=== PATIENT | male | born 1970 | race Caucasian/White ===

== ENCOUNTER 2018-03-30 12:31 | Emergency (ER) | payer SELFPAY ==
[2018-03-30] MEDS ORDERED: ASPIRIN 81 MG CHEWABLE TABLET ONE (13:09)
[2018-03-30] MEDS ORDERED: Magnesium Sulfate 2gm IVPB 2 G/50 ML BAG IV ONE (13:10)
[2018-03-30] MEDS ORDERED: dilTIAZem HCl 50 MG/10 ML VIAL IV ONE (13:10)
[2018-03-30] MEDS ORDERED: DILTIAZEM 125 MG in NS 125 ML IVPB ONE (13:15)
[2018-03-30] MEDS ORDERED: ENOXAPARIN 80 MG/0.8 ML SQ ONE (13:43)
[2018-03-30] MEDS ORDERED: METOPROLOL TAR 50 MG TAB ONE (13:43)
[2018-03-30] MEDS ORDERED: ENOXAPARIN 100 MG/ML SYR SQ ONE (13:48)
--- NOTE | 2018-03-30 13:54 | RAD REPORT ---
EXAM DESCRIPTION: RAD - Chest Single View - 03/30/2018 1:41 pm CLINICAL HISTORY: Chest pain, syncope COMPARISON: September 2017 TECHNIQUE: AP portable chest image was obtained 1324 hours . FINDINGS: No peripheral mass or consolidation. Cardiac silhouette is enlarged. Upper lobe vasculatur e is mildly prominent. However, the vasculature and lung markings overall are diminished in prominenc e compared to September. Trachea is midline. Heart and vasculature are normal. No measurable pleural e ffusion and no pneumothorax. No gross bony abnormality seen. No acute aortic findings suspected. IMPRESSION: Mild cardiomegaly similar to prior imaging. No peripheral consolidation or mass. Central lung markings and vasculature have diminished since September. No significant failure or volum e overload at this time.
[2018-03-30 13:58] LABS: Absolute Lymphocytes (CBC) 3.1 K/uL (0.7-4.9); Absolute Monocytes 0.9 K/uL (0.1-1.3); Absolute Neutrophil 6.2 K/uL (1.8-8.0); Basophils % 0.9 % (0-1.3); Eosinophils % 1.7 % (0-4.4); Hematocrit 43.8 % (39.6-49.0); Lymphocytes % 29.8 % (15.3-44.8); MCH 35.6 pg (27.0-35.0); MCV 101.1 fL (80-100); MPV 8.7 fL (7.6-11.3); Monocytes % 8.3 % (3.3-12.3); RBC Red Blood Cell Count 4.34 M/uL (4.33-5.43)
[2018-03-30 13:59] LABS: Protime INR 0.96
[2018-03-30 14:22] LABS: Albumin 3.6 g/dL (3.4-5.0); Bilirubin Direct 0.1 mg/dL (0-0.2); Bilirubin Total 0.6 mg/dL (0.2-1.0); Potassium 4.3 mmol/L (3.5-5.1); Protein, Total 7.6 g/dL (6.4-8.2)
--- NOTE | 2018-03-30 15:13 | ER ---
Nurse's Notes [facility] Name: Iván Abel Age: 47 yrs Sex: Male : 1970 Arrival Date: 03/30/2018 Time: 12:32 Bed 4 Private MD: Diagnosis: Atrial Fibrillation with rapid ventricular response;Acute Chest Pain Presentation: 03/30 12:38 Presenting complaint: Patient states: CP and near syncope while driving to work today, sg reports having afib but this episode does not feel like it does when he is having an issue with AFIB, pt is pale and diaphoretic in triage, reports chest tightness and Nausea. Transition of care: patient was not received from another setting of care. Onset of symptoms was March 30, 2018. Risk Assessment: Do you want to hurt yourself or someone else? Patient reports no desire to harm self or others. Initial Sepsis Screen: Does the patient meet any 2 criteria? No. Patient's initial sepsis screen is negative. Does the patient have a suspected source of infection? No. Patient's initial sepsis screen is negative. Care prior to arrival: None. 12:38 Method Of Arrival: Ambulatory sg 12:38 Acuity: SILAS 2 sg Historical: - Allergies: 12:38 No Known Allergies; sg - Home Meds: 12:38 lisinopril Oral once daily [Active]; carvedilol oral oral [Active]; Sotalol Oral sg [Active]; - PMHx: 12:38 Atrial Fib; Hypertension; sg - PSHx: 12:38 None; sg - Immunization history:: Adult Immunizations not up to date. - Social history:: Smoking status: Patient uses tobacco products, smokes one pack cigarettes per day. - Ebola Screening: : Patient negative for fever greater than or equal to 101.5 degrees Fahrenheit, and additional compatible Ebola Virus Disease symptoms Patient denies exposure to infectious person Patient denies travel to an Ebola-affected area in the 21 days before illness onset No symptoms or risks identified at this time. - Family history:: not pertinent. - Hospitalizations: : No recent hospitalization is reported. Screenin:18 Abuse screen: Denies threats or abuse. Denies injuries from another. Nutritional aj screening: No deficits noted. Tuberculosis screening: No symptoms or risk factors identified. Fall Risk None identified. Assessment: 12:54 General: Appears in no apparent distress. comfortable, Behavior is calm, cooperative, aj appropriate for age. Pain: Denies pain. Neuro: Level of Consciousness is awake, alert, obeys commands, Oriented to person, place, time, situation, Appropriate for age. Neuro:. Cardiovascular: Reports palpitations, Capillary refill < 3 seconds in bilateral fingers Patient's skin is warm and dry. Respiratory: Airway is patent Respiratory effort is Respiratory pattern is regular, symmetrical. Derm: Skin is intact, is healthy with good turgor, Skin is pink, warm \T\ dry. normal. 13:27 Reassessment: Patient appears in no apparent distress at this time. No changes from aj previously documented assessment. Patient and/or family updated on plan of care and expected duration. Pain level reassessed. Patient is alert, oriented x 3, equal unlabored respirations, skin warm/dry/pink. Patient denies pain at this time. Patient states feeling better. Patient states symptoms have improved. 15:30 Pain: Pain began. Vital Signs: 12:38 BP 119 / 94; Pulse 70; Resp 16; Pulse Ox 99% on R/A; Weight 127.01 kg (R); Height 6 ft. sg 2 in. (187.96 cm); 13:10 BP 108 / 83; Pulse 138; Resp 19; Pulse Ox 98% on R/A; aj 13:18 BP 101 / 82; Pulse 70; Resp 18; Pulse Ox 97% on R/A; aj 13:51 BP 101 / 82; Pulse 74; Resp 17; Pulse Ox 98% on R/A; aj 14:00 Temp 97.9(TE); aj 14:30 BP 129 / 84; Pulse 73; Resp 17; Pulse Ox 99% on R/A; aj 15:27 BP 116 / 88; Pulse 67; Resp 17; Pulse Ox 99% on R/A; aj 12:38 Body Mass Index 35.95 (127.01 kg, 187.96 cm) ED Course: 12:32 Patient arrived in ED. rg4 12:38 Arm band placed on. sg 12:38 Patient has correct armband on for positive identification. Placed in gown. Bed in low aj position. Call light in reach. Side rails up X 1. Adult w/ patient. residential monitor on. Pulse ox on. NIBP on. 12:38 No provider procedures requiring assistance completed. IV discontinued, intact, aj bleeding controlled, No redness/swelling at site. Pressure dressing applied. Patient maintains SpO2 saturation greater than 95% on room air. 12:40 Triage completed. sg 12:43 Ronel Perdomo, RN is Primary Nurse. aj 12:47 Berto Farah MD is Attending Physician. wa 12:47 EKG done, by customer account technician. reviewed by Berto Farah MD. at1 12:56 Inserted saline lock: 20 gauge in right antecubital area, using aseptic technique. aj Blood collected. By VD equipment maintenance technician. 13:40 X-ray completed. Portable x-ray completed in exam room. Patient tolerated procedure mh1 well. 13:41 XRAY Chest (1 view) In Process Unspecified. EDMS 15:12 Rajeev Lindo MD is Referral Physician. wa 15:27 Patient has correct armband on for positive identification. aj Administered Medications: 13:10 Drug: Cardizem 20 mg Route: IVP; Site: right antecubital; aj 13:35 Follow up: Response: No adverse reaction; No adverse reaction, Pulse is decreased aj 13:17 Drug: Aspirin Chewable Tablet 324 mg Route: PO; aj 13:34 Follow up: Response: No adverse reaction aj 13:17 Drug: Magnesium Sulfate 2 grams Route: IVPB; Infused Over: 2 hrs; Site: right aj antecubital; 15:26 Follow up: Response: No adverse reaction; IV Status: Completed infusion; IV Intake: 50mlaj 13:29 Not Given (Physician Discretion): Cardizem 5 mg/hr IV at calculated rate continuous; wa (standard dilution 125 mg diltiazem mixed in 100mL NS; final concentration 1mg/mL) 13:41 Drug: Metoprolol 50 mg Route: PO; aj 14:01 Follow up: Response: No adverse reaction aj 13:49 Drug: Lovenox 100 mg Route: Sub-Q; Site: right lower abdomen; aj 14:29 Follow up: Response: No adverse reaction aj Intake: 15:26 IV: 50ml; Total: 50ml. aj Outcome: 12:38 Discharged to home ambulatory, with family. aj 12:38 Condition: good 12:38 Discharge instructions given to patient, Instructed on discharge instructions, follow up and referral plans. medication usage, Demonstrated understanding of instructions, follow-up care, medications, Prescriptions given X 1. 15:13 Discharge ordered by MD. tovar 15:31 Patient left the ED. aj Signatures: Dispatcher [employer] EDMS Vinod Welsh, RN Ronel Perez RN RN aj Harvey, Martha 1 Ronel Trejo, refinery superintendent EKG Tat1 Gary, Anna rg4 Berto Farah MD MD wa Corrections: (The following items were deleted from the chart) 12:56 12:54 Neuro: Level of Consciousness is awake, alert, obeys commands, Oriented to aj person, place, time, situation, Appropriate for age aj 12:56 12:54 Neuro: Reports dizziness, aj aj
--- NOTE | 2018-03-30 15:13 | EDPHYS ---
Physician Documentation [facility] Name: Iván Abel Age: 47 yrs Sex: Male : 1970 Arrival Date: 03/30/2018 Time: 12:32 Bed 4 Private MD: ED Physician Berto Farah HPI: 03/30 15:01 This 47 yrs old Male presents to ER via Ambulatory with complaints of Chest wa Tightness. 15:01 The patient or guardian reports chest pain that is located primarily in the substernal wa area. Onset: today. The pain does not radiate. Associated signs and symptoms: Pertinent positives: shortness of breath, Pertinent negatives: cough, lightheadedness, syncope. The chest pain is described as a pressure. Duration: The patient or guardian reports a single episode, that is still ongoing. Modifying factors: The symptoms are alleviated by nothing. the symptoms are aggravated by nothing. Severity of pain: At its worst the pain was mild in the emergency department the pain is unchanged. The patient has experienced similar episodes in the past, several times, h/o Afib. The patient has not recently seen a physician. Historical: - Allergies: 12:38 No Known Allergies; sg - Home Meds: 12:38 lisinopril Oral once daily [Active]; carvedilol oral oral [Active]; Sotalol Oral sg [Active]; - PMHx: 12:38 Atrial Fib; Hypertension; sg - PSHx: 12:38 None; sg - Immunization history:: Adult Immunizations not up to date. - Social history:: Smoking status: Patient uses tobacco products, smokes one pack cigarettes per day. - Ebola Screening: : Patient negative for fever greater than or equal to 101.5 degrees Fahrenheit, and additional compatible Ebola Virus Disease symptoms Patient denies exposure to infectious person Patient denies travel to an Ebola-affected area in the 21 days before illness onset No symptoms or risks identified at this time. - Family history:: not pertinent. - Hospitalizations: : No recent hospitalization is reported. ROS: 15:03 Constitutional: Negative for fever, chills, and weight loss, Eyes: Negative for injury, wa pain, redness, and discharge, ENT: Negative for injury, pain, and discharge, Neck: Negative for injury, pain, and swelling, Abdomen/GI: Negative for abdominal pain, nausea, vomiting, diarrhea, and constipation, Back: Negative for injury and pain, MS/Extremity: Negative for injury and deformity, Skin: Negative for injury, rash, and discoloration, Neuro: Negative for headache, weakness, numbness, tingling, and seizure, Psych: Negative for depression, anxiety, suicide ideation, homicidal ideation, and hallucinations. 15:03 Cardiovascular: Positive for chest pain, palpitations, Negative for edema, orthopnea. 15:03 Respiratory: Positive for shortness of breath, at rest. Negative for cough, orthopnea. Exam: 15:04 Constitutional: This is a well developed, well nourished patient who is awake, alert, wa and in no acute distress. Head/Face: Normocephalic, atraumatic. Eyes: Pupils equal round and reactive to light, extra-ocular motions intact. Lids and lashes normal. Conjunctiva and sclera are non-icteric and not injected. Cornea within normal limits. Periorbital areas with no swelling, redness, or edema. ENT: Nares patent. No nasal discharge, no septal abnormalities noted. Tympanic membranes are normal and external auditory canals are clear. Oropharynx with no redness, swelling, or masses, exudates, or evidence of obstruction, uvula midline. Mucous membranes moist. Neck: Trachea midline, no thyromegaly or masses palpated, and no cervical lymphadenopathy. Supple, full range of motion without nuchal rigidity, or vertebral point tenderness. No Meningismus. Chest/axilla: Normal chest wall appearance and motion. Nontender with no deformity. No lesions are appreciated. Abdomen/GI: Soft, non-tender, with normal bowel sounds. No distension or tympany. No guarding or rebound. No evidence of tenderness throughout. Back: No spinal tenderness. No costovertebral tenderness. Full range of motion. Skin: Warm, dry with normal turgor. Normal color with no rashes, no lesions, and no evidence of cellulitis. MS/ Extremity: Pulses equal, no cyanosis. Neurovascular intact. Full, normal range of motion. Neuro: Awake and alert, GCS 15, oriented to person, place, time, and situation. Cranial nerves II-XII grossly intact. Motor strength 5/5 in all extremities. Sensory grossly intact. Cerebellar exam normal. Normal gait. Psych: Awake, alert, with orientation to person, place and time. Behavior, mood, and affect are within normal limits. 15:04 Cardiovascular: Rate: tachycardic, Rhythm: irregularly irregular, Pulses: no pulse deficits are appreciated, Heart sounds: normal, Edema: is not appreciated, JVD: is not appreciated. 15:04 ECG was reviewed by the Attending Physician. Vital Signs: 12:38 BP 119 / 94; Pulse 70; Resp 16; Pulse Ox 99% on R/A; Weight 127.01 kg (R); Height 6 ft. sg 2 in. (187.96 cm); 13:10 BP 108 / 83; Pulse 138; Resp 19; Pulse Ox 98% on R/A; aj 13:18 BP 101 / 82; Pulse 70; Resp 18; Pulse Ox 97% on R/A; aj 13:51 BP 101 / 82; Pulse 74; Resp 17; Pulse Ox 98% on R/A; aj 14:00 Temp 97.9(TE); aj 14:30 BP 129 / 84; Pulse 73; Resp 17; Pulse Ox 99% on R/A; aj 15:27 BP 116 / 88; Pulse 67; Resp 17; Pulse Ox 99% on R/A; aj 12:38 Body Mass Index 35.95 (127.01 kg, 187.96 cm) sg MDM: 12:47 Patient medically screened. wa 15:05 Differential diagnosis: noted A fib RVR. will work up and treat emergently. pt not wa taking his Eloquis due to risk of bleeding. HEART Score: History: Moderately Suspicious (1), ECG: Non specific repolarization disturbance / LBTB / PM (1), Age: < or = 45 years (0), Risk Factors: 1 or 2 risk factors (1), [Hypertension] [Active Smoker] Troponin: < or = 1 x Normal Limit (0), Total Score =. Data reviewed: vital signs, nurses notes, lab test result(s), EKG, radiologic studies. Test interpretation: by ED physician or midlevel provider: CXR: cardiomegaly. no acute process. . 15:09 Test interpretation: by ED physician or midlevel provider: labs noted wnl. EKG: A fib wa RVR at 139. Response to treatment: the patient's symptoms have markedly improved after treatment, the patient's symptoms have resolved after treatment. ED course: pt's symptoms resolved in the ED after HR came within normal limits. ASA and lovenox given. pt would rather f/u as out pt. discussed the need to get back on blood thinner and also to quit smoking. will have f/u closely with cardiology. ED course: controlled with IV cardizem bolus and po metoprolol. 03/30 12:55 Order name: Basic Metabolic Panel; Complete Time: 14:55 wv 03/30 12:55 Order name: CBC with Diff; Complete Time: 14:55 wv 03/30 12:55 Order name: LFT's; Complete Time: 14:55 wv 03/30 12:55 Order name: Magnesium; Complete Time: 14:55 wv 03/30 12:55 Order name: NT PRO-BNP; Complete Time: 14:55 wv 03/30 12:55 Order name: PT-INR; Complete Time: 14:55 wv 03/30 12:55 Order name: Troponin (emerg Dept Use Only); Complete Time: 14:55 wv 03/30 12:55 Order name: XRAY Chest (1 view); Complete Time: 13:59 wv 03/30 12:55 Order name: EKG; Complete Time: 12:55 wv 03/30 12:55 Order name: Cardiac monitoring; Complete Time: 13:49 wv 03/30 12:55 Order name: EKG - Nurse/Tech; Complete Time: 13:49 wv 03/30 12:55 Order name: IV Saline Lock; Complete Time: 13:49 wv 03/30 12:55 Order name: Labs collected and sent; Complete Time: 13:49 wv 03/30 12:55 Order name: O2 Per Protocol; Complete Time: 13:49 wv 03/30 12:55 Order name: O2 Sat Monitoring; Complete Time: 13:50 wv Administered Medications: 13:10 Drug: Cardizem 20 mg Route: IVP; Site: right antecubital; aj 13:35 Follow up: Response: No adverse reaction; No adverse reaction, Pulse is decreased aj 13:17 Drug: Aspirin Chewable Tablet 324 mg Route: PO; aj 13:34 Follow up: Response: No adverse reaction aj 13:17 Drug: Magnesium Sulfate 2 grams Route: IVPB; Infused Over: 2 hrs; Site: right aj antecubital; 15:26 Follow up: Response: No adverse reaction; IV Status: Completed infusion; IV Intake: 50mlaj 13:29 Not Given (Physician Discretion): Cardizem 5 mg/hr IV at calculated rate continuous; wa (standard dilution 125 mg diltiazem mixed in 100mL NS; final concentration 1mg/mL) 13:41 Drug: Metoprolol 50 mg Route: PO; aj 14:01 Follow up: Response: No adverse reaction aj 13:49 Drug: Lovenox 100 mg Route: Sub-Q; Site: right lower abdomen; aj 14:29 Follow up: Response: No adverse reaction aj Disposition: 15:11 Critical Care:. wa Disposition: 03/30/18 15:13 Discharged to Home. Impression: Atrial Fibrillation with rapid ventricular response, Acute Chest Pain. - Condition is Stable. - Prescriptions for Lisinopril 20 mg Oral Tablet - take 1 tablet by ORAL route twice a day; 90 tablet. - Medication Reconciliation Form, Thank You Letter, Antibiotic Education, Prescription Opioid Use form. - Follow up: Rajeev Lindo MD; When: Tomorrow; Reason: Recheck today's complaints. - Problem is an acute exacerbation. - Symptoms have improved. - Notes: follow up with the printing machinist as discussed. return for reoccurence of symptoms. quit smoking. you need to get on blood thinners to prevent strokes, heart attacks and or blood clots lodging in your extremities and or organs Critical care time excluding procedures: 15:11 Critical care time: Bedside Care: 22 minutes, Family Intervention: 8 minutes. Total wa time: 30 minutes Signatures: Dispatcher [employer] Vinod Rios RN RN sg Myers, Amanda, RN RN aj Appiah, William, MD MD wa Corrections: (The following items were deleted from the chart) 15:31 15:13 03/30/2018 15:13 Discharged to Home. Impression: Atrial Fibrillation with rapid aj ventricular response; Acute Chest Pain. Condition is Stable. Forms are Medication Reconciliation Form, Thank You Letter, Antibiotic Education, Prescription Opioid Use. Follow up: Rajeev Lindo; When: Tomorrow; Reason: Recheck today's complaints. Problem is an acute exacerbation. Symptoms have improved. wa
--- NOTE | 2018-03-30 16:28 | EKG ---
Test Date: 2018-03-30 Test Time: 12:41:05 Prospecting Driller: GEOFFREY MEASUREMENT RESULTS: Intervals: Rate: 113 MO: QRSD: 82 QT: 324 QTc: 444 [place]: P: MO: QRS: 62 T: 89 INTERPRETIVE STATEMENTS: Atrial fibrillation with rapid ventricular response with premature ventricular or aberrantly conducted complexes Abnormal ECG Compared to ECG 10/04/2017 21:45:23 No significant changes Electronically Signed On 03-30-18 16:27:07 CDT by Malik Josue
== END 2018-03-30 15:31 | disposition home or self-care (01) ==
LOC: ER 12:31
DX: I48.0 Paroxysmal atrial fibrillation (principal); I10 Essential (primary) hypertension; F17.210 Nicotine dependence, cigarettes, uncomplicated
CPT/HCPCS: 36415; 71045; 80048; 80076; 83735; 83880; 84484; 85025; 85610; 93005; 96365; 96366; 96372; 96375; 99285; J1650; J3475

== ENCOUNTER 2019-04-24 01:56 | Observation (INO) | payer SELFPAY ==
[2019-04-24] MEDS ORDERED: dilTIAZem HCl 25 MG/5 ML VIAL IV ONE (02:14)
[2019-04-24 02:32] LABS: Protime INR 0.96
[2019-04-24] MEDS ORDERED: METOPROLOL TARTRATE 5 MG/5 ML INJ IV ONE (02:32)
[2019-04-24 02:48] LABS: ALT/SGPT 34 U/L (12-78); AST/SGOT 21 U/L (15-37); Albumin 4.2 g/dL (3.4-5.0); Alkaline Phosphatase 76 U/L (45-117); BUN Blood Urea Nitrogen 13 mg/dL (7-18); Bicarbonate 25 mmol/L (21-32); Bilirubin Direct 0.1 mg/dL (0-0.2); Bilirubin Total 0.4 mg/dL (0.2-1.0); Glucose Level 119 mg/dL (74-106); Magnesium 2.1 mg/dL (1.8-2.4); NT PRO-BNP 1357 pg/mL (<125); Potassium 3.6 mmol/L (3.5-5.1); Protein, Total 7.9 g/dL (6.4-8.2); Sodium Level 143 mmol/L (136-145); Troponin (Emerg Dept Use Only) < 0.02 ng/mL (0.0-0.045)
[2019-04-24 02:51] LABS: Absolute Lymphocytes (CBC) 2.2 K/uL (0.7-4.9); Basophils % 0.6 % (0-1.3); Hematocrit 48.4 % (39.6-49.0); Lymphocytes % 24.5 % (15.3-44.8); MPV 8.9 fL (7.6-11.3); RBC Red Blood Cell Count 4.87 M/uL (4.33-5.43)
[2019-04-24] MEDS ORDERED: SOTALOL HCL 80 MG TAB ONE (03:18)
--- NOTE | 2019-04-24 04:42 | ER ---
Nurse's Notes [facility] Name: Iván Abel Age: 48 yrs Sex: Male : 1970 Arrival Date: 04/24/2019 Time: 01:59 Bed 6 Private MD: Diagnosis: Atrial fibrillation and flutter Presentation: 04/24 02:18 Presenting complaint: Patient states: Palpitation that began about 2 hours ago with lp1 shortness of breath; hx of Afib; Patient denies any chest pain at this time; Has been without home medications for months. Transition of care: patient was not received from another setting of care. Onset of symptoms was April 24, 2019 at 00:00. Risk Assessment: Do you want to hurt yourself or someone else? Patient reports no desire to harm self or others. Initial Sepsis Screen: Does the patient meet any 2 criteria? No. Patient's initial sepsis screen is negative. Does the patient have a suspected source of infection? No. Patient's initial sepsis screen is negative. Care prior to arrival: None. 02:18 Method Of Arrival: Wheelchair lp1 02:18 Acuity: SILAS 2 lp1 Historical: - Allergies: 02:22 No Known Allergies; lp1 - Home Meds: 02:22 None [Active]; lp1 - PMHx: 02:22 Atrial Fib; Hypertension; lp1 - PSHx: 02:22 Knee surgery; lp1 - Immunization history:: Adult Immunizations up to date. - Social history:: Smoking status: Patient uses tobacco products, smokes one-half pack cigarettes per day. - Ebola Screening: : No symptoms or risks identified at this time. Screenin:22 Abuse screen: Denies threats or abuse. Denies injuries from another. Nutritional lp1 screening: No deficits noted. Tuberculosis screening: No symptoms or risk factors identified. Fall Risk None identified. Assessment: 02:15 Reassessment: Dr. Branham at bedside to assess patient; Verbal order for Cardizem 10mg lp1 IV now. 02:32 General: Appears uncomfortable, Behavior is calm, appropriate for age. Pain: Denies lp1 pain. Neuro: Level of Consciousness is awake, alert, obeys commands, Oriented to person, place, time, situation. Cardiovascular: Patient's skin is warm and dry. Respiratory: Reports shortness of breath Respiratory effort is even, unlabored, Respiratory pattern is regular, Breath sounds are clear bilaterally. GI: No signs and/or symptoms were reported involving the gastrointestinal system. : No signs and/or symptoms were reported regarding the genitourinary system. EENT: No signs and/or symptoms were reported regarding the EENT system. Derm: Skin is intact, Skin is diaphoretic, Skin is normal. Musculoskeletal: No deficits noted. 03:00 Reassessment: Patient appears in no apparent distress at this time. No changes from lp1 previously documented assessment. 04:12 Reassessment: Patient appears in no apparent distress at this time. Patient is alert, lp1 oriented x 3, equal unlabored respirations, skin warm/dry/pink. Patient states feeling better. Patient states symptoms have improved. 07:34 Reassessment: Attempted to call report, nurse unavialable. jl7 Vital Signs: 02:20 BP 164 / 139; Pulse 159; Resp 17; Temp 98.5(O); Pulse Ox 100% on R/A; Weight 146.1 kg lp1 (M); Height 6 ft. 3 in. (190.50 cm); Pain 0/10; 02:28 BP 147 / 119; Pulse 130; Resp 16; Pulse Ox 98% on 2 lpm NC; lp1 02:32 BP 140 / 103; Pulse 136; Resp 14; Pulse Ox 100% on 2 lpm NC; lp1 02:37 BP 151 / 100; Pulse 122; Resp 15; Pulse Ox 94% on 2 lpm NC; lp1 02:41 BP 150 / 106; Pulse 105; Resp 13; Pulse Ox 100% on 2 lpm NC; lp1 02:46 BP 145 / 108; Pulse 105; Resp 13; Pulse Ox 99% on 2 lpm NC; lp1 03:15 BP 131 / 104; Pulse 97; Resp 12; Pulse Ox 98% on 2 lpm NC; lp1 03:45 BP 135 / 103; Pulse 98; Resp 20; Pulse Ox 98% on 2 lpm NC; lp1 04:00 BP 122 / 107; Pulse 83; Resp 13; Pulse Ox 99% on 2 lpm NC; Pain 0/10; lp1 07:30 BP 117 / 97; Pulse 86; Resp 16 S; Pulse Ox 99% on R/A; jl7 02:20 Body Mass Index 40.26 (146.10 kg, 190.50 cm) lp1 ED Course: 01:59 Patient arrived in ED. ag3 02:03 Twan Branham MD is Attending Physician. tw4 02:17 Inserted saline lock: 18 gauge in right antecubital area, using aseptic technique. jb5 Blood collected. 02:17 Basic Metabolic Panel Sent. jb5 02:17 CBC with Diff Sent. jb5 02:17 LFT's Sent. jb5 02:17 Magnesium Sent. jb5 02:17 NT PRO-BNP Sent. jb5 02:17 PT-INR Sent. jb5 02:17 Troponin (emerg Dept Use Only) Sent. jb5 02:18 Anali Soares, RN is Primary Nurse. lp1 02:20 Triage completed. lp1 02:21 Arm band placed on left wrist. lp1 02:22 Patient has correct armband on for positive identification. pallet rectifier on. Pulse lp1 ox on. NIBP on. 02:23 X-ray completed. Portable x-ray completed in exam room. Patient tolerated procedure kw well. 02:26 XRAY Chest (1 view) In Process Unspecified. EDMS 04:41 Russ Castañeda DO is Hospitalizing Provider. tw4 08:21 Urine Dipstick--Ancillary (enter results) Sent. jl7 08:23 No provider procedures requiring assistance completed. Patient admitted, IV remains in jl7 place. intact, No redness/swelling at site. Administered Medications: 02:18 Drug: Cardizem 10 mg Route: IVP; Site: right antecubital; bb 04:23 Follow up: Response: No adverse reaction lp1 02:35 Drug: Metoprolol 5 mg Route: IVP; Site: right antecubital; lp1 02:46 Drug: Metoprolol 5 mg Route: IVP; Site: right antecubital; lp1 02:50 Drug: Metoprolol 5 mg Route: IVP; Site: right antecubital; lp1 04:23 Follow up: Response: Marked relief of symptoms lp1 03:18 Drug: Sotalol 80 mg Route: PO; ak1 04:24 Follow up: Response: No adverse reaction lp1 06:37 Drug: Xarelto 15 mg Route: PO; ak1 06:37 Follow up: Response: No adverse reaction ak1 Outcome: 04:41 Decision to Hospitalize by Provider. tw4 08:23 Admitted to Tele accompanied by tech, via wheelchair, room 419, with chart, Report jl7 called to PAULINA Hopper 08:23 Condition: stable 08:23 Discharge instructions given to patient, Instructed on the need for admit, Demonstrated understanding of instructions. 08:41 Patient left the ED. [id number] Signatures: Dispatcher [employer] EDElvi Holm, RN RN Mireya Hendricks Laura, RN RN lp1 Effie Young RN RN ak1 Raine Oleayr Jahala, RN RN jl7 Twan Branham MD MD tw4 Bharti Art 3
--- NOTE | 2019-04-24 04:42 | EDPHYS ---
Physician Documentation [facility] Name: Iván Abel Age: 48 yrs Sex: Male : 1970 Arrival Date: 04/24/2019 Time: 01:59 Bed 6 Private MD: ED Physician Twan Branham HPI: 04/24 05:56 This 48 yrs old Male presents to ER via Wheelchair with complaints of tw4 Palpitations. 05:56 The patient presents with a history of heart racing. Context: The symptoms occur at tw4 rest. Onset: The symptoms/episode began/occurred today. Duration: The patient or guardian reports a single episode, that is now resolved. Modifying factors: The symptoms are aggravated by nothing. The symptoms are alleviated by nothing. Associated signs and symptoms: The patient has no apparent associated signs or symptoms. Severity of symptoms: At their worst the symptoms were moderate in the emergency department the symptoms are unchanged. The patient has not experienced similar symptoms in the past. Historical: - Allergies: 02:22 No Known Allergies; lp1 - Home Meds: 02:22 None [Active]; lp1 - PMHx: 02:22 Atrial Fib; Hypertension; lp1 - PSHx: 02:22 Knee surgery; lp1 - Immunization history:: Adult Immunizations up to date. - Social history:: Smoking status: Patient uses tobacco products, smokes one-half pack cigarettes per day. - Ebola Screening: : No symptoms or risks identified at this time. ROS: 05:56 Constitutional: Negative for fever, chills, and weight loss, Eyes: Negative for injury, tw4 pain, redness, and discharge. 05:56 Abdomen/GI: Negative for abdominal pain, nausea, vomiting, diarrhea, and constipation, Back: Negative for injury and pain, MS/Extremity: Negative for injury and deformity, Skin: Negative for injury, rash, and discoloration. 05:56 Cardiovascular: Positive for palpitations, Negative for chest pain, edema, orthopnea, paroxysmal nocturnal dyspnea, acute changes. Exam: 05:56 Constitutional: This is a well developed, well nourished patient who is awake, alert, tw4 and in no acute distress. Head/Face: Normocephalic, atraumatic. Chest/axilla: Normal chest wall appearance and motion. Nontender with no deformity. No lesions are appreciated. 05:56 Respiratory: Lungs have equal breath sounds bilaterally, clear to auscultation and percussion. No rales, rhonchi or wheezes noted. No increased work of breathing, no retractions or nasal flaring. Abdomen/GI: Soft, non-tender, with normal bowel sounds. No distension or tympany. No guarding or rebound. No evidence of tenderness throughout. Back: No spinal tenderness. No costovertebral tenderness. Full range of motion. MS/ Extremity: Pulses equal, no cyanosis. Neurovascular intact. Full, normal range of motion. Neuro: Awake and alert, GCS 15, oriented to person, place, time, and situation. Cranial nerves II-XII grossly intact. Motor strength 5/5 in all extremities. Sensory grossly intact. Cerebellar exam normal. Normal gait. 05:56 Cardiovascular: Rate: tachycardic, actual rate is 110 bpm, Rhythm: Pulses: no pulse deficits are appreciated. Vital Signs: 02:20 BP 164 / 139; Pulse 159; Resp 17; Temp 98.5(O); Pulse Ox 100% on R/A; Weight 146.1 kg lp1 (M); Height 6 ft. 3 in. (190.50 cm); Pain 0/10; 02:28 BP 147 / 119; Pulse 130; Resp 16; Pulse Ox 98% on 2 lpm NC; lp1 02:32 BP 140 / 103; Pulse 136; Resp 14; Pulse Ox 100% on 2 lpm NC; lp1 02:37 BP 151 / 100; Pulse 122; Resp 15; Pulse Ox 94% on 2 lpm NC; lp1 02:41 BP 150 / 106; Pulse 105; Resp 13; Pulse Ox 100% on 2 lpm NC; lp1 02:46 BP 145 / 108; Pulse 105; Resp 13; Pulse Ox 99% on 2 lpm NC; lp1 03:15 BP 131 / 104; Pulse 97; Resp 12; Pulse Ox 98% on 2 lpm NC; lp1 03:45 BP 135 / 103; Pulse 98; Resp 20; Pulse Ox 98% on 2 lpm NC; lp1 04:00 BP 122 / 107; Pulse 83; Resp 13; Pulse Ox 99% on 2 lpm NC; Pain 0/10; lp1 07:30 BP 117 / 97; Pulse 86; Resp 16 S; Pulse Ox 99% on R/A; jl7 02:20 Body Mass Index 40.26 (146.10 kg, 190.50 cm) lp1 MDM: 02:03 Patient medically screened. tw 06:02 Differential diagnosis: arrythmia, stress disorder. Data reviewed: vital signs, nurses tw4 notes. Data interpreted: Pulse oximetry:. Counseling: I had a detailed discussion with the patient and/or guardian regarding: the historical points, exam findings, and any diagnostic results supporting the discharge/admit diagnosis. Physician consultation: Russ Castañeda DO was contacted at 04:00, regarding patient's condition. 04/24 02:03 Order name: Basic Metabolic Panel; Complete Time: 04:12 [facility] 04/24 04:12 Interpretation: Normal except: CL 109; GLUC 119; GFR 60. 04/24 02:03 Order name: CBC with Diff; Complete Time: 04:12 [facility] 04/24 04:12 Interpretation: Within normal limits. [facility] 04/24 02:03 Order name: LFT's; Complete Time: 04:12 [facility] 04/24 04:12 Interpretation: Normal except: GLOB 3.7. 04/24 02:03 Order name: Magnesium; Complete Time: 04:12 [facility] 04/24 04:12 Interpretation: Within normal limits: MG 2.1. [facility] 04/24 02:03 Order name: NT PRO-BNP; Complete Time: 04:12 [facility] 04/24 04:12 Interpretation: Normal except: NT PRO-BNP 1357. [facility] 04/24 02:03 Order name: PT-INR; Complete Time: 04:12 [facility] 04/24 04:12 Interpretation: Within normal limits: PT 11.3. [facility] 04/24 02:03 Order name: Troponin (emerg Dept Use Only); Complete Time: 04:12 [facility] 04/24 04:12 Interpretation: Within normal limits: TROPED < 0.02. [facility] 04/24 02:03 Order name: XRAY Chest (1 view) [facility] 04/24 02:04 Order name: Urine Drug Screen [facility] 04/24 07:59 Order name: Urine Dipstick--Ancillary (enter results) 04/24 02:03 Order name: EKG; Complete Time: 02:06 [facility] 04/24 02:03 Order name: Cardiac monitoring; Complete Time: 02:18 04/24 02:03 Order name: EKG - Nurse/Tech; Complete Time: 02:18 04/24 02:03 Order name: IV Saline Lock; Complete Time: 02:18 04/24 02:04 Order name: Labs collected and sent; Complete Time: 02:18 04/24 02:04 Order name: O2 Per Protocol; Complete Time: 02:29 04/24 02:04 Order name: O2 Sat Monitoring; Complete Time: 02:29 04/24 03:09 Order name: EKG; Complete Time: 03:10 04/24 03:09 Order name: EKG - Nurse/Tech; Complete Time: 03:18 04/24 04:49 Order name: Social Service Consult EDMS EC:56 Rate is 180 beats/min. Rhythm is irregularly irregular, A fib. DE interval is normal. tw4 QRS interval is normal. QT interval is normal. No Q waves. T waves are Normal. No ST changes noted. Clinical impression: Atrial Fibrillation. Interpreted by me. Reviewed by me. Administered Medications: 02:18 Drug: Cardizem 10 mg Route: IVP; Site: right antecubital; bb 04:23 Follow up: Response: No adverse reaction lp1 02:35 Drug: Metoprolol 5 mg Route: IVP; Site: right antecubital; lp1 02:46 Drug: Metoprolol 5 mg Route: IVP; Site: right antecubital; lp1 02:50 Drug: Metoprolol 5 mg Route: IVP; Site: right antecubital; lp1 04:23 Follow up: Response: Marked relief of symptoms lp1 03:18 Drug: Sotalol 80 mg Route: PO; ak1 04:24 Follow up: Response: No adverse reaction lp1 06:37 Drug: Xarelto 15 mg Route: PO; ak1 06:37 Follow up: Response: No adverse reaction ak1 Disposition: 04/24/19 04:41 Hospitalization ordered by Russ Castañeda for Inpatient Admission. Preliminary diagnosis is Atrial fibrillation and flutter. - Bed requested for Telemetry/MedSurg (Inpatient). - Status is Inpatient Admission. jl7 - Condition is Fair. - Problem is an ongoing problem. - Symptoms have worsened. UTI on Admission? No Signatures: Dispatcher [employer] EDMS Kristel Barclay RN RN mw Elvi Ervin, RN RN bb Anali Soares, RN RN lp1 Effie Young, RN RN ak1 Gómez Ceja, RN RN jl7 Twan Branham MD MD tw4 Corrections: (The following items were deleted from the chart) 05:33 04:41 Hospitalization Ordered by Russ Castañeda DO for Inpatient Admission. Preliminary diagnosis is Atrial fibrillation and flutter. Bed requested for Telemetry/MedSurg (Inpatient). Status is Inpatient Admission. Condition is Fair. Problem is an ongoing problem. Symptoms have worsened. UTI on Admission? No. tw4 08:41 05:33 04/24/2019 04:41 Hospitalization Ordered by Russ Castañeda DO for Inpatient jl7 Admission. Preliminary diagnosis is Atrial fibrillation and flutter. Bed requested for Telemetry/MedSurg (Inpatient). Status is Inpatient Admission. Condition is Fair. Problem is an ongoing problem. Symptoms have worsened. UTI on Admission? No. mw
--- NOTE | 2019-04-24 04:47 | P.HP ---
Certification for Inpatient Patient admitted to: Observation With expected LOS: <2 Midnights Patient will require the following post-hospital care: Other (Medication assistance) Practitioner: I am a practitioner with admitting privileges, knowledge of patient current condition, hospital course, and medical plan of care. Services: Services provided to patient in accordance with Admission requirements found in Title 42 Section 412.3 of the Code of Federal Regulations Patient History Date of Service: 04/24/19 Primary Care Provider: none; Cardiology-Dr. Josue Reason for admission: Palpitations History of Present Illness: 48-year-old male presented to the emergency room with palpitation. Patient with history of chronic atrial fibrillation on chronic anti coagulation therapy and hypertension. Patient admits running out of medication for over 6 months. Patient normally takes sotalol, lisinopril and Xarelto. He has not been able to follow up with cardiology. He does not have a PCP. Palpitations had been getting worse. He denied any chest pain, shortness of breath. Some nausea noted. In the ER patient evaluated. Patient was in atrial fibrillation with a rate in the 180s. Patient given multiple medications including Cardizem. Rate now better controlled. Patient was started on sotalol. Initial lab shows a white count of 9.0, hemoglobin 17. Troponin unremarkable. BNP 1300. Sodium 143, potassium 3.6. BUN 13, creatinine 1.22 with a GFR 67. Glucose 119. Patient admitted for observation to further address. When I saw the patient ER, he appeared comfortable. Rate around 100. Patient admits running out of medication. Allergies No Known Allergies Allergy (Verified 10/05/17 05:15) Home medications list reviewed: Yes Home Medications: Carvedilol [Coreg*] 12.5 mg PO BID 6AM 6PM #60 tab 07/16/17 Lisinopril [Prinivil*] 20 mg PO BID #60 tab 07/16/17 Rivaroxaban [Xarelto] 20 mg PO DAILY 30 Days tablet 07/16/17 Sotalol HCl [Betapace*] 80 mg PO BID 6AM 6PM #60 tab 07/16/17 - Past Medical/Surgical History Diabetic: No -: HTN -: Atrial fibrillation -: Tobacco abuse -: R. knee sx Psychosocial/ Personal History: Patient is single. - Family History Mother -: Cancer (Lung cancer) Notes: LNG [place] - non smoker - Social History Smoking Status: Light Tobacco smoker (1-9 cigarettes/day) Counseled patient to stop smoking for: less than 10 minutes Smoking therapy provided: Yes Patient receptive to therapy: Yes Alcohol use: Yes CD- Drugs: No Caffeine use: Yes Place of Residence: Home Review of Systems General: As per HPI Eyes: Unremarkable ENT: Unremarkable Respiratory: Unremarkable Cardiovascular: Palpitations, As per HPI Gastrointestinal: Nausea, As per HPI Genitourinary: Unremarkable Musculoskeletal: Unremarkable Integumentary: Unremarkable Neurological: Unremarkable Lymphatics: Unremarkable Physical Examination - Physical Exam General: Alert, In no apparent distress, Oriented x3, Cooperative HEENT: Atraumatic, Normocephalic, PERRLA, Mucous membr. moist/pink Neck: Supple, No Thyromegaly Respiratory: Clear to auscultation bilaterally, Normal air movement Cardiovascular: Irregular heart rate/rhythm (Atrial fibrillation, rate better controlled around 100) Gastrointestinal: Normal bowel sounds, Soft and benign, Non-distended, No tenderness, No masses, No rebound, No guarding Musculoskeletal: No contractures, No erythema, No tenderness, No warmth Integumentary: No tenderness/swelling, No erythema, No warmth, No cyanosis Neurological: Normal speech, Normal strength at 5/5 x4 extr, Normal tone, Normal affect - Studies Laboratory Data (last 24 hrs) 04/24/19 02:14: PT 11.3, INR 0.96 04/24/19 02:14: WBC 9.0, Hgb 17.0, Hct 48.4, Plt Count 263 04/24/19 02:14: Sodium 143, Potassium 3.6, BUN 13, Creatinine 1.27, Glucose 119 H, Magnesium 2.1, Total Bilirubin 0.4, AST 21, ALT 34, Alkaline Phosphatase 76 Assessment and Plan - Plan Impression: Palpitations secondary to atrial fibrillation with RVR Hypertension Poor compliance with follow up and medication Tobacco abuse Plan: Palpitations secondary to atrial fibrillation with RVR: Patient be admitted for further evaluation. Rate now better controlled. Will start his prior medications of sotalol 80 mg 1 pill twice daily and Xarelto 20 mg daily. Will order echocardiogram to further evaluate. Cardiology consulted to further address. Patient may be able to be discharged later today if cleared by cardiology. Patient will need close follow up with cardiology to continue his medications. Will consult transition social worker to help establish care with a local PCP. Daytime hospitalist will continue to care for the patient. Hypertension: Restart lisinopril 20 mg 1 pill twice daily. Patient also takes carvedilol 12.5 mg 1 pill twice daily. Poor compliance with follow up and medication: Compliance with medication and follow up addressed in detail with the patient. Tobacco abuse: Will provide nicotine patch. Provide tobacco cessation education. Discharge Plan: Home Plan to discharge in: 24 Hours - Advance Directives Does patient have a Living Will: No Does patient have a Durable POA for Healthcare: No - Code Status/Comfort Care Code Status Assessed: Yes (Patient is full code) Time Spent Managing Pts Care (In Minutes): 55
[2019-04-24] MEDS ORDERED: RIVAROXABAN 15 MG TABLET PO ONE (06:23)
[2019-04-24 08:06] LABS: Barbiturates NEGATIVE (NEGATIVE); Benzodiazepines NEGATIVE (NEGATIVE); Cocaine NEGATIVE (NEGATIVE); METHAMPHETAM NEGATIVE (NEGATIVE); Methadone NEGATIVE (NEGATIVE); Opiates NEGATIVE (NEGATIVE); Phencyclidine NEGATIVE (NEGATIVE); THC Cannibis NEGATIVE (NEGATIVE)
--- NOTE | 2019-04-24 08:20 | RAD REPORT ---
EXAM DESCRIPTION: RAD - Chest Single View - 04/24/2019 2:34 am CLINICAL HISTORY: PALPITATIONS Chest pain. COMPARISON: Chest Single View dated 03/30/2018; Chest Single View dated 10/04/2017; Chest Single View dated 07/15/2017; CHEST SINGLE VIEW dated 10/08/2010 FINDINGS: Portable technique limits examination quality. Interstitial prominence is present bilaterally, nonspecific but may represent interstitial pulmonary edema. The heart is mildly enlarged in size. No displaced fractures.
[2019-04-24] MEDS ORDERED: ACETAMINOPHEN 500 MG TAB PO PRN (08:27)
[2019-04-24] MEDS ORDERED: ONDANSETRON 4 MG/2 ML VIAL IV PRN (08:27)
[2019-04-24] MEDS ORDERED: FAMOTIDINE 20 MG TAB PO SCH (09:00)
[2019-04-24] MEDS ORDERED: LISINOPRIL 20 MG TAB PO SCH (09:00)
[2019-04-24 09:01] VITALS: BMI 40.2
[2019-04-24] MEDS ORDERED: POTASSIUM CL SA 10 MEQ TAB PO ONE (09:07)
[2019-04-24] MEDS: CARVEDILOL 12.5 MG TAB PO SCH ×2 (09:09→17:18)
[2019-04-24] MEDS: SOTALOL HCL 80 MG TAB PO SCH ×2 (09:09→17:19)
[2019-04-24 09:29] LABS: Thyroid Stimulating Hormone 1.47 uIU/mL (0.360-3.740)
[2019-04-24 09:29] LABS: Urine Blood TRACE (NEG); Urine Glucose NEGATIVE (NEG); Urine Protein NEGATIVE (NEG); Urine Specific Gravity 1.025 (1.005-1.030); Urine pH 5.5 (5.0-7.0)
[2019-04-24 10:57] LABS: Urine Appearance CLEAR; Urine Bilirubin NEGATIVE (NEG); Urine Blood NEGATIVE (NEG); Urine Color YELLOW; Urine Glucose NEGATIVE (NEG); Urine Protein NEGATIVE (NEG); Urine Specific Gravity 1.015 (1.005-1.030); Urine pH 5.5 (5.0-7.0)
[2019-04-24 11:10] LABS: Urine Microscopic Reflex NO UMIC
--- NOTE | 2019-04-24 11:34 | EKG ---
Test Date: 2019-04-24 Test Time: 03:10:43 Director Of Video Analytics: SHAHBAZ MEASUREMENT RESULTS: Intervals: Rate: 99 CO: QRSD: 84 QT: 364 QTc: 467 [place]: P: CO: QRS: 47 T: 31 INTERPRETIVE STATEMENTS: Atrial fibrillation Septal infarct, age undetermined Abnormal ECG Compared to ECG 04/24/2019 02:07:15 No significant changes Electronically Signed On 04-24-19 11:33:33 CDT by Malik Josue
--- NOTE | 2019-04-24 11:34 | EKG ---
Test Date: 2019-04-24 Test Time: 02:07:15 Project Construction Manager: SHAHBAZ MEASUREMENT RESULTS: Intervals: Rate: 180 IA: QRSD: 84 QT: 244 QTc: 422 [place]: P: IA: QRS: 67 T: 1 INTERPRETIVE STATEMENTS: Atrial fibrillation with rapid ventricular response Septal infarct, age undetermined Abnormal ECG Compared to ECG 03/30/2018 12:41:05 Myocardial infarct finding now present Ventricular premature complex(es) no longer present Electronically Signed On 04-24-19 11:33:34 CDT by Malik Josue
[2019-04-24 15:33] VITALS: O2SAT 98
[2019-04-24 16:32] VITALS: BP 138/88; TEMP 97.3
[2019-04-24] MEDS ORDERED: RIVAROXABAN 20 MG TABLET PO SCH (17:00)
--- NOTE | 2019-04-25 02:03 | CON ---
Date of Consultation: 04/24/2019 Reason For Consultation: Admitted by Dr. Hoover on 04/24/2019 for atrial fibrillation. I saw the dimitri boone on 04/24/2019. History Of Present Illness: Mr. Abel is a 48-year-old white male, has had a history of atrial fibr illation dating back to at least 2016. He was placed at that time on Sotalol and Xarelto, but has be en somehow lost to follow up. He was back in the hospital in September of 2017, was replaced on Sotal ol and Xarelto as well. I think he has been out of his medication for quite sometimes. He comes pedro to the emergency room with atrial fibrillation at a rate of about 99. He was restarted on Sotalol and Xarelto and his atrial fibrillation basically resolved. His main complaint was atrial fibrillati on, was palpitation and shortness of breath. Denies any chest pain, nausea, vomiting, diaphoresis, P ND, orthopnea, pedal edema, or syncope. By the time I saw him, he was already in normal rhythm. He was in no acute distress. His vital signs were stable, and he was afebrile and his laboratory evaluations were all negative exc ept for a BNP of 1357 secondary to the atrial fibrillation. Past Medical History: As stated earlier. Allergies: NONE. Medications At Home: None. Review of Systems: Negative. Social History: Negative. Family History: Negative. Physical Examination: As mentioned earlier was normal after conversion to sinus rhythm. Diagnostic Data: Normal except for the BNP secondary to atrial fibrillation. Assessment And Plan: I recommend Mr. Abel stays on the Sotalol 80 twice a day and Xarelto 20 daily and I recommend that he can go home and we will see him in the office in the next 2 weeks. SEUN/AUDI Voice ID: [id number] Report ID: [id number]
== END 2019-04-24 18:19 | disposition home or self-care (01) ==
LOC: ER 01:56 → ERHOLD 06:59 → 4TH 08:24
PROVIDERS: ADMIT Family Medicine; ATTEND Family Medicine
DX: I48.2 Chronic atrial fibrillation (principal); I10 Essential (primary) hypertension; R00.2 Palpitations; F17.210 Nicotine dependence, cigarettes, uncomplicated; Z79.01 Long term (current) use of anticoagulants
CPT/HCPCS: 36415; 71045; 80048; 80076; 80307; 81003; 83735; 83880; 84439; 84443; 84484; 85025; 85610; 93005; 96374; 96375; 99285; G0378

== ENCOUNTER 2019-06-14 00:44 | Inpatient (IN) | payer SELFPAY ==
[2019-06-14] MEDS ORDERED: SOTALOL HCL 80 MG TAB ONE (01:07)
[2019-06-14 01:19] LABS: Absolute Lymphocytes (CBC) 3.3 K/uL (0.7-4.9); Basophils % 1.1 % (0-1.3); Hematocrit 43.1 % (39.6-49.0); Lymphocytes % 36.6 % (15.3-44.8); MPV 8.6 fL (7.6-11.3); RBC Red Blood Cell Count 4.34 M/uL (4.33-5.43)
[2019-06-14] MEDS ORDERED: METOPROLOL TARTRATE 5 MG/5 ML INJ IV ONE (02:06)
--- NOTE | 2019-06-14 02:22 | ER ---
Nurse's Notes [facility] Name: Iván Abel Age: 48 yrs Sex: Male : 1970 Arrival Date: 06/14/2019 Time: 00:45 Bed 6 Private MD: Diagnosis: Atrial fibrillation and flutter;Chest pain, unspecified Presentation: 06/14 00:46 Presenting complaint: Patient states: that for the past hr he has been having chest fc pressure and shortness of breath. Has been very sweaty. Denies any nausea or vomiting. Hx of Afib. Has not taken his medications in 3 days and is not taking his Xarelto at all because he cannot afford it. Transition of care: patient was not received from another setting of care. Onset of symptoms was June 14, 2019 at 00:00. Risk Assessment: Do you want to hurt yourself or someone else? Patient reports no desire to harm self or others. Initial Sepsis Screen: Does the patient meet any 2 criteria? HR > 90 bpm. Yes Does the patient have a suspected source of infection? No. Patient's initial sepsis screen is negative. Care prior to arrival: None. 00:46 Method Of Arrival: Wheelchair fc 00:46 Acuity: SILAS 3 fc Historical: - Allergies: 01:03 No Known Allergies; fc - Home Meds: 01:03 lisinopril 20 mg Oral tab 1 tab twice a day [Active]; carvedilol 12.5 mg oral tab 1 tab fc 2 times per day [Active]; sotalol 80 mg Oral tab 1 tab 2 times per day [Active]; - PMHx: 01:03 Atrial Fib; Hypertension; fc - PSHx: 01:03 Knee surgery; fc - Immunization history:: Last tetanus immunization: up to date Flu vaccine is not up to date. - Social history:: Smoking status: Patient uses tobacco products, smokes one-half pack cigarettes per day, Patient/guardian denies using alcohol, street drugs. - Ebola Screening: : Patient negative for fever greater than or equal to 101.5 degrees Fahrenheit, and additional compatible Ebola Virus Disease symptoms Patient denies exposure to infectious person Patient denies travel to an Ebola-affected area in the 21 days before illness onset. - Family history:: not pertinent. - Hospitalizations: : No recent hospitalization is reported. Screenin:46 Abuse screen: Denies threats or abuse. Nutritional screening: No deficits noted. Tuberculosis screening: No symptoms or risk factors identified. Fall Risk None identified. Assessment: 01:05 General: Appears uncomfortable, obese, Behavior is calm, cooperative. Pain: Denies ak1 pain. Pain began 3 hours ago. Neuro: Level of Consciousness is awake, alert, obeys commands, Oriented to person, place, time, situation, Moves all extremities. Speech is normal. Cardiovascular: Heart tones S1 S2 present Rhythm is atrial fibrillation with rapid ventricular response. Respiratory: Airway is patent Respiratory effort is even, unlabored, Respiratory pattern is regular. GI: No signs and/or symptoms were reported involving the gastrointestinal system. : No signs and/or symptoms were reported regarding the genitourinary system. EENT: No signs and/or symptoms were reported regarding the EENT system. Derm: Skin is diaphoretic, moist, Skin is pale, Skin temperature is warm. Musculoskeletal: No signs and/or symptoms reported regarding the musculoskeletal system. 01:44 Reassessment: Patient and/or family updated on plan of care and expected duration. Pain ea level reassessed. Patient is alert, oriented x 3, equal unlabored respirations, skin warm/dry/pink. Vital Signs: 00:46 BP 172 / 118; Pulse 146; Resp 18; Temp 97.6(O); Pulse Ox 99% on R/A; Weight 146.06 kg (R); Height 6 ft. 2 in. (187.96 cm) (R); Pain 7/10; 01:35 BP 153 / 130; Pulse 133; Resp 18; Pulse Ox 95% ; ea 02:11 BP 158 / 106; Pulse 135; Resp 18; Pulse Ox 96% on R/A; ak1 02:51 BP 136 / 117; Pulse 113; Resp 18; Temp 97.7; Pulse Ox 96% on R/A; ak1 03:03 BP 135 / 103; Pulse 109; Resp 14; Pulse Ox 98% ; ea 00:46 Body Mass Index 41.34 (146.06 kg, 187.96 cm) ED Course: 00:45 Patient arrived in ED. cl3 00:46 Arm band placed on Patient placed in an exam room, on a stretcher. 00:46 Patient has correct armband on for positive identification. Placed in gown. Bed in low fc position. Call light in reach. hall monitor on. Pulse ox on. NIBP on. 00:46 No provider procedures requiring assistance completed. fc 00:54 Jose Eduardo Mejia MD is Attending Physician. rn 01:01 Triage completed. fc 01:05 Initial lab(s) drawn, by me, sent to lab. EKG done, by ED staff, reviewed by Jose Eduardo Mejia MD. Inserted saline lock: 20 gauge in right antecubital area, using aseptic technique. Blood collected. Patient maintains SpO2 saturation greater than 95% on room air. O2 via pt refused O2. 01:07 Effie Young, RN is Primary Nurse. ak1 01:45 XRAY Chest (1 view) In Process Unspecified. EDMS 02:21 Genesis Starks MD is Hospitalizing Provider. rn 03:21 Patient admitted, IV remains in place. ak1 Administered Medications: 01:08 Drug: Sotalol 160 mg Route: PO; ea 02:03 Follow up: Response: No adverse reaction ak1 02:10 Drug: Metoprolol 5 mg {Note: dose 1.} Route: IVP; Site: right antecubital; ak1 02:23 Drug: Metoprolol 5 mg {Note: 2nd dose.} Route: IVP; Site: right antecubital; ak1 02:39 Drug: Metoprolol 5 mg Route: IVP; Site: right antecubital; ak1 02:39 Follow up: Response: No adverse reaction ak1 02:51 Drug: Xarelto 20 mg Route: PO; ak1 02:51 Follow up: BP 136 / 117; Pulse 113 bpm; Resp 18 bpm; Temp 97.7; Pulse Ox 96% RA ak1 Outcome: 02:21 Decision to Hospitalize by Provider. rn 03:22 Admitted to Tele accompanied by tech, via wheelchair, room 210, with chart. ak1 03:22 Condition: good 03:22 Instructed on the need for admit. 03:43 Patient left the ED. ak1 Signatures: Dispatcher [employer] EDMS Brenda Quintero RN RN fc Nieto, Roman, MD MD rn Krenek, Amber, RN RN ak1 Antunez, Elena, RN RN ea Lewis, Charde cl3
--- NOTE | 2019-06-14 02:22 | EDPHYS ---
Physician Documentation [facility] Name: Iván Abel Age: 48 yrs Sex: Male : 1970 Arrival Date: 06/14/2019 Time: 00:45 Bed 6 Private MD: ED Physician Jose Eduardo Mejia HPI: 06/14 01:03 This 48 yrs old Male presents to ER via Wheelchair with complaints of Chest rn Pain. 01:03 The patient or guardian reports chest pain that is located primarily in the substernal rn area. Onset: at 00:00. The pain does not radiate. Associated signs and symptoms: Pertinent positives: diaphoresis, palpitations, shortness of breath, Pertinent negatives: abdominal pain, syncope, vomiting. The chest pain is described as a heaviness. Duration: The patient or guardian reports a single episode, that is still ongoing. Modifying factors: The symptoms are alleviated by nothing. the symptoms are aggravated by nothing. Severity of pain: At its worst the pain was moderate in the emergency department the pain is unchanged. The patient has experienced similar episodes in the past. Reports unable to afford medications for afib, has not taken blood thinners, out of sotalol. Woke up with palpitations/chest pain/diaphoresis. . Historical: - Allergies: 01:03 No Known Allergies; fc - Home Meds: 01:03 lisinopril 20 mg Oral tab 1 tab twice a day [Active]; carvedilol 12.5 mg oral tab 1 tab fc 2 times per day [Active]; sotalol 80 mg Oral tab 1 tab 2 times per day [Active]; - PMHx: 01:03 Atrial Fib; Hypertension; fc - PSHx: 01:03 Knee surgery; fc - Immunization history:: Last tetanus immunization: up to date Flu vaccine is not up to date. - Social history:: Smoking status: Patient uses tobacco products, smokes one-half pack cigarettes per day, Patient/guardian denies using alcohol, street drugs. - Ebola Screening: : Patient negative for fever greater than or equal to 101.5 degrees Fahrenheit, and additional compatible Ebola Virus Disease symptoms Patient denies exposure to infectious person Patient denies travel to an Ebola-affected area in the 21 days before illness onset. - Family history:: not pertinent. - Hospitalizations: : No recent hospitalization is reported. ROS: 01:03 Constitutional: Negative for fever, chills, and weight loss, Eyes: Negative for injury, rn pain, redness, and discharge, Neck: Negative for injury, pain, and swelling, Cardiovascular: Negative for edema Respiratory: Negative for cough, wheezing, and pleuritic chest pain, Abdomen/GI: Negative for abdominal pain, nausea, vomiting, diarrhea, and constipation, MS/Extremity: Negative for injury and deformity, Skin: Negative for injury, rash, and discoloration, Neuro: Negative for headache, weakness, numbness, tingling, and seizure. Exam: 01:00 ECG was reviewed by the Attending Physician. rn 01:03 Constitutional: This is a well developed, well nourished patient who is awake, alert, rn diaphoretic Head/Face: Normocephalic, atraumatic. ENT: MMM Cardiovascular: Tachycardic, irregular rhythm Respiratory: Lungs have equal breath sounds bilaterally, clear to auscultation. + mild tachypnea Abdomen/GI: soft, non-tender MS/ Extremity: Pulses equal, no cyanosis. Neurovascular intact. Full, normal range of motion. Equal circumference. Neuro: Awake and alert, GCS 15, oriented to person, place, time, and situation. Cranial nerves II-XII grossly intact. Motor strength 5/5 in all extremities. Sensory grossly intact. Cerebellar exam normal. Vital Signs: 00:46 BP 172 / 118; Pulse 146; Resp 18; Temp 97.6(O); Pulse Ox 99% on R/A; Weight 146.06 kg fc (R); Height 6 ft. 2 in. (187.96 cm) (R); Pain 7/10; 01:35 BP 153 / 130; Pulse 133; Resp 18; Pulse Ox 95% ; ea 02:11 BP 158 / 106; Pulse 135; Resp 18; Pulse Ox 96% on R/A; ak1 02:51 BP 136 / 117; Pulse 113; Resp 18; Temp 97.7; Pulse Ox 96% on R/A; ak1 03:03 BP 135 / 103; Pulse 109; Resp 14; Pulse Ox 98% ; ea 00:46 Body Mass Index 41.34 (146.06 kg, 187.96 cm) MDM: 00:54 Patient medically screened. rn 02:20 Differential diagnosis: acute myocardial infarction, atrial fibrillation, atrial rn flutter, demand ischemia. Data reviewed: vital signs, nurses notes, lab test result(s), EKG, and as a result, I will admit patient. 02:20 Response to treatment: the patient's symptoms have mildly improved after treatment, and rn as a result, I will admit patient. Admission orders: after a detailed discussion of the patient's condition and case, the admit orders are written by me. 06/14 00:59 Order name: Basic Metabolic Panel; Complete Time: 02:47 rn 06/14 00:59 Order name: CBC with Diff; Complete Time: 01:45 rn 06/14 00:59 Order name: NT PRO-BNP; Complete Time: 02:47 06/14 00:59 Order name: Troponin (emerg Dept Use Only); Complete Time: 02:47 06/14 02:10 Order name: Urine Dipstick--Ancillary (enter results); Complete Time: 02:53 cm6 06/14 03:04 Order name: Lipid Profile [facility] 06/14 00:59 Order name: XRAY Chest (1 view) 06/14 03:04 Order name: Echo with Doppler [facility] 06/14 03:04 Order name: Lipid Profile [facility] 06/14 03:04 Order name: Troponin I [facility] 06/14 03:04 Order name: Troponin I [facility] 06/14 03:04 Order name: Troponin I [facility] 06/14 00:59 Order name: EKG; Complete Time: 01:01 rn 06/14 00:59 Order name: Cardiac monitoring; Complete Time: 01:05 rn 06/14 00:59 Order name: EKG - Nurse/Tech; Complete Time: 01:05 rn 06/14 00:59 Order name: IV Saline Lock; Complete Time: 01:05 rn 06/14 00:59 Order name: Labs collected and sent; Complete Time: 01:05 rn 06/14 00:59 Order name: O2 Per Protocol; Complete Time: 01:05 rn 06/14 00:59 Order name: O2 Sat Monitoring; Complete Time: 01:05 rn 06/14 03:04 Order name: CONS Physician Consult [facility] 06/14 03:04 Order name: Heart Healthy [facility] 06/14 03:04 Order name: EKG Electrocardiogram [facility] 06/14 03:04 Order name: EKG Electrocardiogram [facility] EC:00 Rate is 146 beats/min. Rhythm is irregularly irregular. QRS [place] is Normal. QRS rn interval is normal. T waves are Normal. No ST changes noted. Clinical impression: Atrial Fibrillation and Atrial Flutter. Interpreted by me. Reviewed by me. Administered Medications: 01:08 Drug: Sotalol 160 mg Route: PO; ea 02:03 Follow up: Response: No adverse reaction ak1 02:10 Drug: Metoprolol 5 mg {Note: dose 1.} Route: IVP; Site: right antecubital; ak1 02:23 Drug: Metoprolol 5 mg {Note: 2nd dose.} Route: IVP; Site: right antecubital; ak1 02:39 Drug: Metoprolol 5 mg Route: IVP; Site: right antecubital; ak1 02:39 Follow up: Response: No adverse reaction ak1 02:51 Drug: Xarelto 20 mg Route: PO; ak1 02:51 Follow up: BP 136 / 117; Pulse 113 bpm; Resp 18 bpm; Temp 97.7; Pulse Ox 96% RA ak1 Disposition: 06/14/19 02:21 Hospitalization ordered by Genesis Starks for Inpatient Admission. Preliminary diagnosis are Atrial fibrillation and flutter, Chest pain, unspecified. - Bed requested for Telemetry/MedSurg (Inpatient). - Status is Inpatient Admission. ak1 - Condition is Stable. - Problem is new. - Symptoms have improved. UTI on Admission? No Signatures: Dispatcher [employer] [facility] Brenda Quintero RN RN fc Nieto, Roman, MD MD rn Lasagna, Tonya, RN RN tl1 Krenek, Amber RN RN ak1 Miri Dalal RN RN ea Corrections: (The following items were deleted from the chart) 01:04 01:03 Constitutional: Negative for fever, chills, and weight loss, Eyes: Negative for rn injury, pain, redness, and discharge, Neck: Negative for injury, pain, and swelling, Cardiovascular: Negative for edema Respiratory: Negative for shortness of breath, cough, wheezing, and pleuritic chest pain, Abdomen/GI: Negative for abdominal pain, nausea, vomiting, diarrhea, and constipation, MS/Extremity: Negative for injury and deformity, Skin: Negative for injury, rash, and discoloration, Neuro: Negative for headache, weakness, numbness, tingling, and seizure, rn 03:21 02:21 Hospitalization Ordered by Genesis Starks MD for Inpatient Admission. Preliminary tl1 diagnosis is Atrial fibrillation and flutter; Chest pain, unspecified. Bed requested for Telemetry/MedSurg (Inpatient). Status is Inpatient Admission. Condition is Stable. Problem is new. Symptoms have improved. UTI on Admission? No. rn 03:43 03:21 06/14/2019 02:21 Hospitalization Ordered by Genesis Starks MD for Inpatient ak1 Admission. Preliminary diagnosis is Atrial fibrillation and flutter; Chest pain, unspecified. Bed requested for Telemetry/MedSurg (Inpatient). Status is Inpatient Admission. Condition is Stable. Problem is new. Symptoms have improved. UTI on Admission? No. tl1
[2019-06-14 02:27] LABS: BUN Blood Urea Nitrogen 20 mg/dL (7-18); Bicarbonate 26 mmol/L (21-32); Glucose Level 105 mg/dL (74-106); NT PRO-BNP 2392 pg/mL (<125); Sodium Level 142 mmol/L (136-145); Troponin (Emerg Dept Use Only) < 0.02 ng/mL (0.0-0.045)
[2019-06-14] MEDS ORDERED: RIVAROXABAN 20 MG TABLET PO ONE (02:47)
[2019-06-14 02:51] LABS: Urine Blood NEGATIVE (NEG); Urine Glucose NEGATIVE (NEG); Urine Protein NEGATIVE (NEG)
[2019-06-14] MEDS ORDERED: ACETAMINOPHEN 500 MG TAB PO PRN (02:59)
[2019-06-14] MEDS ORDERED: MORPHINE 4 MG/ML SYR IV PRN (02:59)
[2019-06-14 03:55] VITALS: BMI 42.5
[2019-06-14 04:07] VITALS: O2SAT 98
[2019-06-14] MEDS ORDERED: SOTALOL HCL 80 MG TAB PO SCH ×2 (06:00→09:00)
[2019-06-14 06:03] LABS: HDL Cholesterol 37 mg/dL (40-60); LDL Cholesterol, Calculated 139 (<130); Troponin I < 0.02 ng/mL (0.0-0.045)
[2019-06-14] MEDS ORDERED: FUROSEMIDE 20 MG/ 2ML VIAL IV ONE (07:25)
--- NOTE | 2019-06-14 07:52 | P.HP ---
Certification for Inpatient Patient admitted to: Inpatient With expected LOS: >2 Midnights Patient will require the following post-hospital care: None Practitioner: I am a practitioner with admitting privileges, knowledge of patient current condition, hospital course, and medical plan of care. Services: Services provided to patient in accordance with Admission requirements found in Title 42 Section 412.3 of the Code of Federal Regulations Patient History Date of Service: 06/14/19 Reason for admission: Atrial fibrillation with RVR/CHF exacerbation, acute systolic dysfunction History of Present Illness: Patient is a 48-year-old gentleman who came into the hospital with difficulty breathing. Patient was found to be in atrial fibrillation with rapid ventricular response. Patient was heart rate initially was in the 150s. Patient was given sotalol 160 mg in Xarelto 20 mg in the emergency room around 2a.m. Patient's heart rates has started improving. Patient was 0 few years ago and had an echocardiogram which revealed an ejection fraction of 37%. Patient does not have insurance and does not have the financial means to see a physician. Patient has not followed up with the primary care provider. Patient will need social service consultation. Patient still continues to decline over the last year. He came into the hospital because he was not able to breathe any longer. In the ER chest x-ray revealed interstitial edema. Patient also had atrial fibrillation with a heart rate of 150 to 160s. Patient will be admitted for further treatment and cardiology consultation. Patient also has acute renal insufficiency most likely related to cardiorenal syndrome. Cardiology consultation as well. Incidentally, patient has a history of drinking energy drinks. Allergies No Known Allergies Allergy (Verified 10/05/17 05:15) Home Medications: Carvedilol [Coreg*] 12.5 mg PO BID 6AM 6PM #60 tab 04/24/19 Lisinopril [Prinivil*] 20 mg PO BID #60 tab 04/24/19 Rivaroxaban [Xarelto] 20 mg PO DAILY #30 tablet 04/24/19 Sotalol HCl [Betapace*] 80 mg PO BID 6AM 6PM #60 tab 04/24/19 - Past Medical/Surgical History Has patient received pneumonia vaccine in the past: No Diabetic: No -: HTN -: Atrial fibrillation -: Tobacco abuse -: CHF, systolic dysfunction -: R. knee sx Psychosocial/ Personal History: Patient is single. - Family History Mother Medical History: Cancer Notes: LNG [place] - non smoker - Social History Smoking Status: Current every day smoker Alcohol use: No CD- Drugs: No Caffeine use: Yes Place of Residence: Home Review of Systems 10-point ROS is otherwise unremarkable Physical Examination - Vital Signs Temperature: 96.8 F Blood Pressure: 131/94 Pulse: 104 Respirations: 18 Pulse Ox (%): 97 - Physical Exam General: Alert, In no apparent distress, Oriented x3 HEENT: Atraumatic, Normocephalic Neck: Supple, 2+ carotid pulse no bruit, JVD not distended, No Thyromegaly, No LAD Respiratory: Crackles/rales Cardiovascular: Regular rate/rhythm, Normal S1 S2, Systolic murmur Gastrointestinal: Normal bowel sounds, Soft and benign, Non-distended, No tenderness Musculoskeletal: No clubbing, Swelling Integumentary: No rashes Neurological: Normal gait, Normal speech, Normal strength at 5/5 x4 extr, Normal tone, Sensation intact, Cranial nerves 3-12 intact - Studies Laboratory Data (last 24 hrs) 06/14/19 01:03: WBC 9.1, Hgb 15.1, Hct 43.1, Plt Count 227 06/14/19 01:03: Sodium 142, Potassium 4.0, BUN 20 H, Creatinine 1.48 H, Glucose 105 Assessment & Plan - Problems (Diagnosis) (1) Acute systolic CHF (congestive heart failure), NYHA class 3 Current Visit: Yes Status: Acute (2) Obesity, Class III, BMI 40-49.9 (morbid obesity) Current Visit: Yes Status: Acute (3) Cardiorenal syndrome with renal failure Current Visit: Yes Status: Acute (4) Hypertension Onset Date: 07/15/17 Current Visit: No Status: Chronic Qualifiers: Hypertension type: essential hypertension Qualified Code(s): I10 - Essential (primary) hypertension (5) Atrial fibrillation with rapid ventricular response Onset Date: 07/15/17 Current Visit: No Status: Resolved - Plan 1. Repeat Echocardiogram 2. Nephrology consultation and renal ultrasound 3. Patient was given sotalol 160mg and Xarelto 20mg; will discuss with Cardiology regarding long-term treatment 4. Cardiology consultation 5. Will start with gently diuresis 6. Strict I's and O's 7. Repeat CXR in the morning 8. Daily weights 9. Education regarding diet and treatment of congestive heart failure 10. GI/DVT prophylaxis Discharge Plan: Home Plan to discharge in: Greater than 2 days - Advance Directives Does patient have a Living Will: No Does patient have a Durable POA for Healthcare: No - Code Status/Comfort Care Code Status Assessed: Yes Code Status: Full Code Critical Care: No Time Spent Managing PTS Care (In Minutes): 45
--- NOTE | 2019-06-14 08:05 | RAD REPORT ---
EXAM DESCRIPTION: RAD - Chest Single View - 06/14/2019 1:45 am CLINICAL HISTORY: Chest pain;Dyspnea Chest pain. COMPARISON: Chest Single View dated 04/24/2019; Chest Single View dated 03/30/2018; Chest Single View dated 10/04/2017; Chest Single View dated 07/15/2017 FINDINGS: Portable technique limits examination quality. Mild interstitial pulmonary edema suspected. The heart is upper limit normal in size. No displaced fr actures. IMPRESSION: Mild interstitial pulmonary edema.
--- NOTE | 2019-06-14 09:12 | RAD REPORT ---
EXAM DESCRIPTION: US - Renal Ultrasound-Complete - 06/14/2019 9:05 am CLINICAL HISTORY: CAROLINE Flank pain COMPARISON: No comparisons FINDINGS: Both kidneys are normal in size, shape and echotexture. Small benign renal cysts present b ilaterally. The right kidney measures 11.9 x 6.0 x 4.7 cm. No hydronephrosis, focal mass or perinephric fluid. The left kidney measures 12.8 x 6.3 x 6.1 cm. No hydronephrosis, focal mass or perinephric fluid. The urinary bladder is incompletely distended without gross abnormality seen. IMPRESSION: Unremarkable renal sonogram.
--- NOTE | 2019-06-14 11:52 | ECHO ---
HEIGHT: 6 ft 2 in WEIGHT: 331 lb 0 oz DATE OF STUDY: 06/14/[address]: Genesis Starks MD 2-DIMENSIONAL: YES M.MODE: YES DOPPLER: YES COLOR FLOW: YES TDS: NO PORTABLE: NO DEFINITY: NO BUBBLE STUDY: NO DIAGNOSIS: ATRIAL FIBRILLATION WITH RAPID VENTRICULAR RESPONSE CARDIAC HISTORY: CATHERIZATION: NO SURGERY: NO PROSTHETIC VALVE: NO PACEMAKER: NO MEASUREMENTS (cm) DIASTOLIC (NORMALS) SYSTOLIC (NORMALS) IVSd 1.1 (0.6-1.2) LA Diam 4.2 (1.9-4.0) LVEF 35-40% LVIDd 5.5 (3.5-5.7) LVIDs 4.6 (2.0-3.5) %FS 16% LVPWd 1.0 (0.6-1.2) Ao Diam 3.3 (2.0-3.7) 2 DIMENSIONAL ASSESSMENT: RIGHT ATRIUM: NORMAL LEFT ATRIUM: DILATED RIGHT VENTRICLE: NORMAL LEFT VENTRICLE: NORMAL SIZE TRICUSPID VALVE: NORMAL MITRAL VALVE: NORMAL PULMONIC VALVE: NORMAL AORTIC VALVE: NORMAL PERICARDIAL EFFUSION: NONE AORTIC ROOT: NORMAL LEFT VENTRICULAR WALL MOTION: MODERATE GLOBAL HYPOKINESIS. DOPPLER/COLOR FLOW: MILD MITRAL AND TRICUSPID REGURGITATION. COMMENTS: MILD MITRAL AND TRICUSPID REGURGITATION. ATRIAL FIBRILLATION. LEFT ATRIAL ENLARGEMENT. NO THROMBUS. MODERATE GLOBAL HYPOKINESIS. LEFT VENTRICULAR EJECTION FRACTION 35-40%. TECHNOLOGIST: Christiano HERNANDEZ
[2019-06-14 15:05] VITALS: TEMP 97.7
--- NOTE | 2019-06-14 15:30 | P.DS ---
Admission Date: 06/14/19 Discharge Date: 06/14/19 Disposition: ROUTINE DISCHARGE Discharge Condition: GOOD Reason for Admission: Atrial fibrillation with RVR/CHF exacerbation, acute systolic dysfunction Consultations: Cardiology Brief History of Present Illness: 48-year-old gentleman with a history of congestive heart failure, chronic atrial fibrillation on sotalol and Xarelto, history of noncompliance to medical treatment and followups presented to the emergency department with a complaint of shortness of breath of 2 days duration. Patient noted to have atrial fibrillation with RVR, heart rate up to 150-160 in the ED. Chest x-ray demonstrated mild interstitial edema. His initial troponin was negative. He reports that he had been noncompliant with the Sotalol and Xarelto for several months due to lack of insurance and inability to afford these medications. Patient was given a dose of Sotalol, Xarelto, multiple doses of IV metoprolol, IV Lasix and admitted for further management. Hospital Course: Patient admitted to the medical floor. Troponin trended came back negative. He was treated with IV Lasix for the vascular congestion. His heart rate improved with resumption of Sotalol. Echocardiogram was performed which reported in an ejection fraction of 35-40%. Xarelto was also resumed. His dyspnea resolved with treatment. He ambulated without shortness of breath. Patient was evaluated by cardiology-Dr. Josue and recommended to continue Sotalol and Xarelto as well as follow up with him in the office. Patient's clinical condition improved rapidly. He is deemed stable for discharge. Patient has been counseled to be compliant with his medications and follow ups. Vital Signs/Physical Exam: Temp Pulse Resp BP Pulse Ox 97.7 F 101 H 18 148/103 H 97 06/14/19 12:00 06/14/19 12:00 06/14/19 12:00 06/14/19 12:00 06/14/19 12:00 General: Alert, In no apparent distress, Oriented x3 HEENT: Mucous membr. moist/pink Neck: Supple, JVD not distended Respiratory: Clear to auscultation bilaterally, Normal air movement Cardiovascular: No edema, Normal pulses, No murmurs, Irregular heart rate/rhythm Gastrointestinal: Normal bowel sounds, Soft and benign, Non-distended, No tenderness Musculoskeletal: No swelling Integumentary: No rashes Neurological: Normal speech, Normal strength at 5/5 x4 extr Laboratory Data at Discharge: WBC 9.1 K/uL (4.3-10.9) 06/14/19 01:03 Hgb 15.1 g/dL (13.6-17.9) 06/14/19 01:03 Hct 43.1 % (39.6-49.0) 06/14/19 01:03 Plt Count 227 K/uL (152-406) 06/14/19 01:03 Sodium 142 mmol/L (136-145) 06/14/19 01:03 Potassium 4.0 mmol/L (3.5-5.1) 06/14/19 01:03 BUN 20 mg/dL (7-18) H 06/14/19 01:03 Creatinine 1.48 mg/dL (0.55-1.3) H 06/14/19 01:03 Glucose 105 mg/dL (74-106) 06/14/19 01:03 Troponin I < 0.02 ng/mL (0.0-0.045) 06/14/19 14:10 Triglycerides 205 mg/dL (<150) H 06/14/19 05:24 Cholesterol 217 mg/dL (<200) H 06/14/19 05:24 HDL Cholesterol 37 mg/dL (40-60) L 06/14/19 05:24 Cholesterol/HDL Ratio 5.86 06/14/19 05:24 Home Medications: Amlodipine [Norvasc*] 10 mg PO DAILY #30 tab 06/14/19 Carvedilol [Coreg*] 12.5 mg PO BID 6AM 6PM #60 tab 06/14/19 Rivaroxaban [Xarelto] 20 mg PO DAILY #30 tablet 06/14/19 Sotalol HCl [Betapace*] 80 mg PO BID 6AM 6PM #60 tab 06/14/19 New Medications: Amlodipine [Norvasc*] 10 mg PO DAILY #30 tab Carvedilol [Coreg*] 12.5 mg PO BID 6AM 6PM #60 tab Rivaroxaban [Xarelto] 20 mg PO DAILY #30 tablet Sotalol HCl [Betapace*] 80 mg PO BID 6AM 6PM #60 tab Diet: AHA Activity: Ad mohit Followup: Malik Josue MD [ACTIVE - CAN ADMIT] - 1-2 Weeks Time spent managing pt's care (in minutes): 25
--- NOTE | 2019-06-14 17:25 | EKG ---
Test Date: 2019-06-14 Test Time: 00:54:25 Screen Room Operator: JULI MEASUREMENT RESULTS: Intervals: Rate: 146 GA: QRSD: 86 QT: 300 QTc: 467 [place]: P: GA: QRS: 71 T: 31 INTERPRETIVE STATEMENTS: Atrial flutter with variable AV block Abnormal ECG Compared to ECG 04/24/2019 03:10:43 Atrial fibrillation no longer present Myocardial infarct finding no longer present Electronically Signed On 06-14-19 17:21:58 MARRIAGE PERFORMER by Malik Josue
[2019-06-14] MEDS ORDERED: FUROSEMIDE 20 MG/ 2ML VIAL IV SCH (18:00)
[2019-06-14 19:31] VITALS: BP 150/90
--- NOTE | 2019-06-14 23:42 | CON ---
Date of Consultation: 06/14/2019 Reason For Consultation: Recurrent atrial fibrillation. History Of Present Illness: Mr. Abel is 48-year-old, he was admitted by Dr. Starks for atrial fibril lation. He has a history of hypertension, obesity, atrial fibrillation, congestive heart failure, ch ronic systolic, noncompliance. Mr. Abel comes back to the hospital every so often with the same sc enario because he quit taking his sotalol and Xarelto. He cannot afford them according to him. He a lso takes lisinopril and Coreg at home and he has not taken those either for about a week or 2, comes back with atrial fibrillation and shortness of breath. He is known to have an ejection fraction of 35% to 39%, which is chronic. 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 He denied any syncope or chest pain. Denied PND, orthopnea, pedal edema, or fever or chills. Has palp itation and shortness of breath. Allergies: NONE. Review of Systems: Negative. Social History: Negative. Family History: Negative. Past Medical History: As stated earlier. Medications: As stated earlier. Physical Examination: Vital Signs: This morning, his blood pressure was 135/110. He weighed 331 pounds and his heart rate was 108. HEENT: Negative. Neck: Supple with no bruit. Chest: Clear. Cardiac: Revealed atrial fibrillation. Abdomen: Benign. Extremities: No clubbing, cyanosis, or edema. Diagnostic Data: His creatinine is 1.48. BNP 2392. Ejection fraction is 35% to 39% by echo. Tropo isauro is negative. Impression And Plan: 1.Recurrent atrial fibrillation secondary to noncompliance. 2.Congestive heart failure, chronic systolic, stable. 3.Hypertension. 4.Obesity. Mr. Abel was placed back on the sotalol 80 b.i.d. as well as Xarelto and Coreg and lisinopril. His blood pressure is improving. His heart rate is improving. He is asymptomatic. I went to my office and brought him some samples of Xarelto so he can take. We will resume his other medications. He c an go home whenever it is okay with attending physician and I will be happy to see him in the office and I insisted that he come see me in the near future so we can follow up with him and at least keep his compliance up-to-date. SEUN/AUDI Voice ID: [id number] Report ID: [id number]
--- NOTE | 2019-06-15 02:55 | CON ---
Date of Consultation: 06/14/2019 Chief Complaint: Abnormal renal function test. BUN is 20, creatinine 1.48, estimated GFR was 51. Electrolytes as follow, sodium 142, potassium 4.0, chloride 109, CO2 of 26. History Of Present Illness: Patient is admitted to the hospital. Previously, he had their blood work in April and BUN was 25, creatinine 1.27. Baseline creatinine level back in 2018 was ranging from 0.98 to 1.03. Nephrology consultation is requested for abnormal renal function test. Patient has multiple medical problems. He came to the hospital because of chest pain, generalized weakness. He has history of atrial fibrillation with rapid ventricular response with heart rate up to 150. He was treated with sotalol and Xarelto was started. Nephrology consultation was requested for abnormal renal function test. Patient had chest x-ray that showed some interstitial edema. Patient has history of hypertension, was taking lisinopril prior to this admission, as well as Coreg and sotalol. Review of Systems: Constitutional: Denies fever or chills. Eyes: Denies vision changes. Ears, Nose, Mouth, and Throat: Denies sore throat or earache. Respiratory: Denies PND or orthopnea. Cardiovascular: Denies chest pain or palpitation. GI: Denies nausea or vomiting. : Denies dysuria or hematuria. All other systems reviewed and all are negative. Past Medical History: Hypertension, atrial fibrillation, tobacco abuse, congestive heart failure, systolic dysfunction, right knee surgery. Family History: Mother had cancer. Social History: Denies tobacco, alcohol, or illicit drugs. Physical Examination: Vital Signs: Blood pressure 130/94, heart rate is 104, respiratory rate 18, SpO2 of 97%. Eyes: Anicteric sclerae. EOMI. Ears, Nose, Mouth, and Throat: Oral mucosa moist. No pallor. Neck: Supple. No bruits. Lungs: Clear to auscultation bilaterally. No wheezing. No rhonchi. Heart: S1, S2. No pericardial friction rub. Abdomen: Soft, benign, nontender. No rebound. No guarding. Extremities: No edema. No clubbing. No cyanosis. SKIN warm and dry , no oozing Neurologic: no tremor, CN intact Laboratory Data: Hemoglobin 15.1, WBC 9.1, platelet count is 227,000. Sodium 142, potassium 4.0, BUN 20, creatinine 1.48, glucose 105. Impression And Plan: 1. Systolic congestive heart failure acute on chronic with pulmonary edema. Patient has atrial fibrillation with rapid ventricular response. Heart rate is controlled. 2. Obesity. Patient will need to be screened for diabetes and proteinuria. Patient developed prerenal azotemia, acute kidney injury due to cardiorenal syndrome. Avoid nephrotoxic medication. Continue blood pressure medications. Monitor fluid balance and start diuretic for fluid overload control and management of congestive heart failure. Patient will need outpatient followup. Urinalysis did not show active sediment. Patient had renal ultrasound done during this admission and was unremarkable. Right kidney 11.9, left kidney 12.8. No focal masses or perinephric fluid. No hydronephrosis. FIORDALIZA/AUDI Voice ID: [id number] Report ID: [id number] ANITA
[2019-06-15] MEDS ORDERED: AMLODIPINE 10 MG TAB PO SCH (09:00)
== END 2019-06-14 17:40 | disposition home or self-care (01) | DRG 292 ==
LOC: ER 00:44 → ERHOLD 03:08 → 2ND 03:34
PROVIDERS: ADMIT Hospitalist; ATTEND Hospitalist
DX: I11.0 Hypertensive heart disease with heart failure (principal); Z68.41 Body mass index [BMI] 40.0-44.9, adult; N17.9 Acute kidney failure, unspecified; I50.23 Acute on chronic systolic (congestive) heart failure; I48.91 Unspecified atrial fibrillation; E66.9 Obesity, unspecified; Z91.14 Patient's other noncompliance with medication regimen; F17.210 Nicotine dependence, cigarettes, uncomplicated
CPT/HCPCS: 36415; 71045; 76770; 80048; 80061; 81003; 83880; 84484; 85025; 93005; 93306; 96374; 99285; J1940

== ENCOUNTER 2019-09-05 20:41 | Inpatient (IN) | payer SELFPAY ==
[2019-09-05] MEDS ORDERED: METOPROLOL TARTRATE 5 MG/5 ML INJ IV ONE (21:07)
[2019-09-05 21:22] LABS: Absolute Lymphocytes (CBC) 3.3 K/uL (0.7-4.9); Hematocrit 48.8 % (39.6-49.0); Lymphocytes % 28.7 % (15.3-44.8); MPV 8.9 fL (7.6-11.3); RBC Red Blood Cell Count 4.74 M/uL (4.33-5.43)
[2019-09-05 21:30] LABS: Protime INR 1.14
[2019-09-05] MEDS ORDERED: NA CHLORIDE 0.9% 1,000 ML ONE (21:32)
[2019-09-05 21:41] LABS: Albumin 3.8 g/dL (3.4-5.0); Bilirubin Direct 0.2 mg/dL (0-0.2); Bilirubin Total 0.9 mg/dL (0.2-1.0); Magnesium 2.2 mg/dL (1.8-2.4); Potassium 3.6 mmol/L (3.5-5.1); Protein, Total 7.7 g/dL (6.4-8.2); Troponin (Emerg Dept Use Only) 0.02 ng/mL (0.0-0.045)
[2019-09-05] MEDS ORDERED: ALBUTEROL 2.5 MG/3 ML NEB SOL ONE (21:58)
[2019-09-05] MEDS ORDERED: IPRATROPIUM BROM 0.5MG/2.5ML ONE (21:59)
[2019-09-05] MEDS ORDERED: METHYLPREDNISOLONE 125 MG INJ ONE (21:59)
[2019-09-05] MEDS ORDERED: ENOXAPARIN 100 MG/ML SYR SQ ONE (22:31)
[2019-09-05] MEDS ORDERED: SOTALOL HCL 80 MG TAB ONE (22:31)
[2019-09-05] MEDS ORDERED: ENOXAPARIN 40 MG/0.4 ML SQ ONE (22:32)
--- NOTE | 2019-09-05 23:00 | ER ---
Nurse's Notes [facility] Name: Iván Abel Age: 48 yrs Sex: Male : 1970 Arrival Date: 09/05/2019 Time: 20:44 Bed 6 Private MD: Diagnosis: Chest pain, unspecified;Atrial fibrillation and flutter-with RVR;Acute pulmonary edema;Hypoxemia;Abnormal findings on diagnostic imaging of lung Presentation: 09/05 21:02 Presenting complaint: Patient states: he has been feeling out of breath x 1 week he has bb hx of A Fib and thinks it is "acting up" he has not taken his medications for approx one week. Transition of care: patient was not received from another setting of care. Onset of symptoms was August 29, 2019. Risk Assessment: Do you want to hurt yourself or someone else? Patient reports no desire to harm self or others. Initial Sepsis Screen: Does the patient meet any 2 criteria? No. Patient's initial sepsis screen is negative. Does the patient have a suspected source of infection? No. Patient's initial sepsis screen is negative. Care prior to arrival: None. 21:02 Method Of Arrival: Ambulatory bb 21:02 Acuity: SILAS 2 bb Triage Assessment: 21:00 General: Appears uncomfortable, Behavior is calm, cooperative. Pain: Denies pain. ls4 Cardiovascular: Capillary refill < 3 seconds Clubbing of nail beds is absent Patient's skin is warm and dry. Rhythm is atrial fibrillation with rapid ventricular response Chest pain is denied. Respiratory: Reports shortness of breath at rest on exertion since 1 week Onset: The symptoms/episode began/occurred gradually, the patient has severe shortness of breath. Historical: - Allergies: 21:08 No Known Allergies; bb - Home Meds: 21:08 carvedilol 12.5 mg Oral tab 1 tab 2 times per day [Active]; sotalol 80 mg Oral tab 1 bb tab 2 times per day [Active]; amlodipine 10 mg tab 1 tab once daily [Active]; Xarelto 20 mg oral tab 1 tab once daily [Active]; - PMHx: 21:08 Atrial Fib; Hypertension; bb - PSHx: 21:08 Knee surgery; bb - Immunization history:: Adult Immunizations up to date, Flu vaccine is not up to date. - Coronavirus screen:: The patient has NOT traveled to [place], [place], or [place] in the past 14 days. Proceed with normal triage process as indicated. - Social history:: Smoking status: Patient reports the use of cigarette tobacco products, smokes one-half pack cigarettes per day. - Ebola Screening: : No symptoms or risks identified at this time. Screenin:36 Abuse screen: Denies threats or abuse. Denies injuries from another. Nutritional ls4 screening: No deficits noted. Tuberculosis screening: No symptoms or risk factors identified. Fall Risk None identified. Assessment: 21:42 Cardiovascular: Capillary refill < 3 seconds Patient's skin is warm and dry. ls4 Respiratory: Airway is patent Respiratory effort is labored, Respiratory pattern is tachypnea Breath sounds are clear. 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 03:01 Reassessment: RECEIVED PATIENT FROM DEBORAH GALLARDO. TAKEN PATIENT TO CT SCAN WITH MONITOR AND rv OXYGEN, CANNOT TOLERATE LAYING FLAT ON BACK. CT SCAN POSTPONED. PATIENT STARTED ON BIPAP. General: Appears uncomfortable, ill, Behavior is calm, cooperative. Pain: Denies pain. Neuro: Level of Consciousness is awake, alert, obeys commands, Oriented to person, place, time, situation. Cardiovascular: Rhythm is atrial fibrillation with rapid ventricular response. Respiratory: Airway is patent. Derm: Skin is intact. Vital Signs: 09/05 21:08 BP 157 / 118; Pulse 155; Resp 22 S; Temp 97.8(O); Pulse Ox 95% on R/A; Weight 145.15 kg bb (R); Height 6 ft. 3 in. (190.50 cm) (R); Pain 0/10; 21:15 BP 119 / 92; Pulse 118; Resp 25; Pulse Ox 97% on R/A; Pain 0/10; ls4 22:15 BP 132 / 91; Pulse 134; Resp 24; Pulse Ox 97% on R/A; ls4 23:15 BP 131 / 72; Pulse 138; Resp 24; Pulse Ox 100% on R/A; ls4 09/06 00:15 BP 130 / 97; Pulse 103; Resp 25; Pulse Ox 100% on R/A; Pain 0/10; ls4 01:00 BP 131 / 108; Pulse 137; Resp 26; Pulse Ox 98% on R/A; Pain 0/10; ls4 02:20 BP 134 / 70; Pulse 128; Resp 20; Pulse Ox 100% ; ls4 03:00 BP 126 / 112; Pulse 127; Resp 18; Pulse Ox 99% on BiPAP; rv 09/05 21:08 Body Mass Index 40.00 (145.15 kg, 190.50 cm) bb ED Course: 09/05 20:44 Patient arrived in ED. ag3 20:54 Herbert Hoff PA is PHCP. jr8 20:54 Twan Branham MD is Attending Physician. jr8 21:00 Patient has correct armband on for positive identification. Placed in gown. Bed in low ls4 position. Call light in reach. Side rails up X 1. Side rails up X2. cardiac monitor on. Pulse ox on. NIBP on. 21:00 Verbal reassurance given. Diet: Patient is NPO. ls4 21:00 No provider procedures requiring assistance completed. Initial lab(s) drawn, by me, ls4 sent to lab. Inserted saline lock: 18 gauge in right antecubital area, using aseptic technique. Blood collected. 21:07 Triage completed. bb 21:08 Arm band placed on Patient placed in an exam room, on a stretcher, on leasing machine tender, bb on pulse oximetry. EKG completed in triage. Results shown to MD. Family accompanied patient. 21:18 XRAY Chest (1 view) In Process Unspecified. EDMS 21:21 Deborah Cooper, RN is Primary Nurse. ls4 22:59 Genesis Starks MD is Hospitalizing Provider. jr8 09/06 02:39 Radiology exam delayed due to PT UNABLE TO LAY FLAT LONG ENOUGH FOR ME TO EVEN START eh THE EXAM. 10:50 EKG done, by refresh technician. reviewed by Jose Eduardo Mejia MD. at1 Administered Medications: 09/05 21:00 Drug: Metoprolol 5 mg Route: IVP; Site: right antecubital; ls4 21:05 Drug: Metoprolol 5 mg Route: IVP; Site: right antecubital; ls4 21:15 Drug: Metoprolol 5 mg Route: IVP; Site: right antecubital; ls4 21:25 Drug: NS 0.9% 1000 ml Route: IV; Rate: 1000 ml; Site: right antecubital; ls4 09/06 00:57 Follow up: IV Status: Completed infusion; IV Intake: 1000ml ls4 09/05 22:41 Drug: Sotalol 80 mg Route: PO; ls4 23:00 Follow up: Response: No adverse reaction; Marked relief of symptoms ls4 22:42 Drug: Lovenox 140 mg Route: Sub-Q; Site: right lower abdomen; ls4 09/06 00:58 Follow up: Response: No adverse reaction ls4 01:51 Drug: Metoprolol 5 mg Route: IVP; Site: right antecubital; ls4 02:15 Drug: Lasix 80 mg Route: IVP; Site: right antecubital; ls4 02:16 Follow up: Response: No adverse reaction ls4 03:01 Drug: Zosyn 3.375 grams Route: IVPB; Infused Over: 60 mins; Site: right antecubital; rv Intake: 00:57 IV: 1000ml; Total: 1000ml. ls4 Outcome: 09/05 22:59 Decision to Hospitalize by Provider. jr8 09/06 14:24 Patient left the ED. jl7 Signatures: Dispatcher [employer] EDMS Loi Richter Brenda RN RN bb Herbert Hoff PA PA jr8 Ronel Trejo, outpatient receptionist EKG Tat1 Gómez Ceja RN RN jl7 Shahzad Motta RN RN rv Gomez, Alice ag3 Deborah Cooper RN RN ls4 Corrections: (The following items were deleted from the chart) 00:58 09/05 23:00 Response: No adverse reaction; Marked relief of symptoms ls4 ls4
--- NOTE | 2019-09-05 23:00 | EDPHYS ---
Physician Documentation [facility] Name: Iván Abel Age: 48 yrs Sex: Male : 1970 Arrival Date: 09/05/2019 Time: 20:44 Bed 6 Private MD: ED Physician Twan Branham HPI: 09/05 21:36 This 48 yrs old Male presents to ER via Ambulatory with complaints of jr8 Palpitations/Shortness Of Breath. 21:36 The patient presents with a history of heart racing. Context: The symptoms occur at jr8 rest. Onset: The symptoms/episode began/occurred acutely, today. Duration: The patient or guardian reports a single episode, that is still ongoing. Modifying factors: The symptoms are aggravated by nothing. The symptoms are alleviated by nothing. Associated signs and symptoms: Pertinent positives: SOB. Severity of symptoms: At their worst the symptoms were moderate in the emergency department the symptoms are unchanged. The patient has experienced similar episodes in the past, a few times. The patient has not recently seen a physician. Patient with history of atrial fibrillation. Stated that he has been out of his medication for over a week. Today started to feel palpitations that are not going away. Stated that he has chronic atrial fib . Historical: - Allergies: 21:08 No Known Allergies; bb - Home Meds: 21:08 carvedilol 12.5 mg Oral tab 1 tab 2 times per day [Active]; sotalol 80 mg Oral tab 1 bb tab 2 times per day [Active]; amlodipine 10 mg tab 1 tab once daily [Active]; Xarelto 20 mg oral tab 1 tab once daily [Active]; - PMHx: 21:08 Atrial Fib; Hypertension; bb - PSHx: 21:08 Knee surgery; bb - Immunization history:: Adult Immunizations up to date, Flu vaccine is not up to date. - Coronavirus screen:: The patient has NOT traveled to [place], [place], or [place] in the past 14 days. Proceed with normal triage process as indicated. - Social history:: Smoking status: Patient reports the use of cigarette tobacco products, smokes one-half pack cigarettes per day. - Ebola Screening: : No symptoms or risks identified at this time. ROS: 21:41 Eyes: Negative for injury, pain, redness, and discharge, ENT: Negative for injury, jr8 pain, and discharge, Neck: Negative for injury, pain, and swelling, Abdomen/GI: Negative for abdominal pain, nausea, vomiting, diarrhea, and constipation, Back: Negative for injury and pain, MS/Extremity: Negative for injury and deformity, Skin: Negative for injury, rash, and discoloration, Neuro: Negative for headache, weakness, numbness, tingling, and seizure. 21:41 Cardiovascular: Positive for palpitations. 21:41 Respiratory: Positive for shortness of breath, at rest. Exam: 21:41 Eyes: Pupils equal round and reactive to light, extra-ocular motions intact. Lids and jr8 lashes normal. Conjunctiva and sclera are non-icteric and not injected. Cornea within normal limits. Periorbital areas with no swelling, redness, or edema. ENT: Nares patent. No nasal discharge, no septal abnormalities noted. Tympanic membranes are normal and external auditory canals are clear. Oropharynx with no redness, swelling, or masses, exudates, or evidence of obstruction, uvula midline. Mucous membranes moist. Neck: Trachea midline, no thyromegaly or masses palpated, and no cervical lymphadenopathy. Supple, full range of motion without nuchal rigidity, or vertebral point tenderness. No Meningismus. Abdomen/GI: Soft, non-tender, with normal bowel sounds. No distension or tympany. No guarding or rebound. No evidence of tenderness throughout. Back: No spinal tenderness. No costovertebral tenderness. Full range of motion. Skin: Warm, dry with normal turgor. Normal color with no rashes, no lesions, and no evidence of cellulitis. MS/ Extremity: Pulses equal, no cyanosis. Neurovascular intact. Full, normal range of motion. Neuro: Awake and alert, GCS 15, oriented to person, place, time, and situation. Cranial nerves II-XII grossly intact. Motor strength 5/5 in all extremities. Sensory grossly intact. Cerebellar exam normal. Normal gait. 21:41 Cardiovascular: Rate: tachycardic, Rhythm: irregularly irregular, Pulses: Pulses are 2+ in right radial artery and left radial artery. Edema: is not appreciated, JVD: is not appreciated. 21:41 Respiratory: the patient does not display signs of respiratory distress, Respirations: tachypnea, that is mild, Breath sounds: are clear throughout. Vital Signs: 21:08 BP 157 / 118; Pulse 155; Resp 22 S; Temp 97.8(O); Pulse Ox 95% on R/A; Weight 145.15 kg bb (R); Height 6 ft. 3 in. (190.50 cm) (R); Pain 0/10; 21:15 BP 119 / 92; Pulse 118; Resp 25; Pulse Ox 97% on R/A; Pain 0/10; ls4 22:15 BP 132 / 91; Pulse 134; Resp 24; Pulse Ox 97% on R/A; ls4 23:15 BP 131 / 72; Pulse 138; Resp 24; Pulse Ox 100% on R/A; ls4 09/06 00:15 BP 130 / 97; Pulse 103; Resp 25; Pulse Ox 100% on R/A; Pain 0/10; ls4 01:00 BP 131 / 108; Pulse 137; Resp 26; Pulse Ox 98% on R/A; Pain 0/10; ls4 02:20 BP 134 / 70; Pulse 128; Resp 20; Pulse Ox 100% ; ls4 03:00 BP 126 / 112; Pulse 127; Resp 18; Pulse Ox 99% on BiPAP; rv 09/05 21:08 Body Mass Index 40.00 (145.15 kg, 190.50 cm) bb MDM: 09/05 20:54 Patient medically screened. jr8 22:58 Data reviewed: vital signs, nurses notes, lab test result(s), EKG, radiologic studies, jr8 plain films. Data interpreted: Pulse oximetry: on room air is 97 %. Interpretation: normal. Counseling: I had a detailed discussion with the patient and/or guardian regarding: the historical points, exam findings, and any diagnostic results supporting the discharge/admit diagnosis, lab results, radiology results, the need for further work-up and treatment in the hospital. Physician consultation: Genesis Starks MD was called at 22:59, was contacted at 22:59, regarding admission, to the ICU, consult, patient's condition, and will see patient. 09/06 02:35 Test interpretation: by ED physician or midlevel provider: plain radiologic studies, jr8 Right middle lobe lung mass present . ED course: Patient being placed on Bipap. Worsening of shortness of breath. Developed some bibasilar crackles. Concern for acute pulmonary edema. Has been diuresed. Cannot tolerate laying flat at this time . 09/05 21:00 Order name: Basic Metabolic Panel; Complete Time: 21:48 [facility] 09/05 21:00 Order name: CBC with Diff; Complete Time: 21:41 [facility] 09/05 21:00 Order name: LFT's; Complete Time: 21:48 [facility] 09/05 21:00 Order name: Magnesium; Complete Time: 21:48 [facility] 09/05 21:00 Order name: NT PRO-BNP; Complete Time: 21:48 [facility] 09/05 21:00 Order name: PT-INR; Complete Time: 21:41 [facility] 09/05 21:00 Order name: Troponin (emerg Dept Use Only); Complete Time: 21:48 [facility] 09/05 21:00 Order name: XRAY Chest (1 view) [facility] 09/06 00:55 Order name: Echo with Doppler [facility] 09/06 01:05 Order name: Troponin I [facility] 09/06 01:06 Order name: Troponin I [facility] 09/06 01:08 Order name: Troponin I [facility] 09/06 02:35 Order name: ABG [facility] 09/06 05:33 Order name: ABG Arterial Blood Gas [facility] 09/05 21:00 Order name: EKG; Complete Time: 21:00 [facility] 09/05 21:00 Order name: Cardiac monitoring; Complete Time: : [facility] 09/06 00:52 Order name: CONS Physician Consult [facility] 09/06 00:54 Order name: Heart Healthy [facility] 09/06 00:55 Order name: EKG Electrocardiogram [facility] 09/06 00:56 Order name: EKG Electrocardiogram [facility] 09/06 01:46 Order name: CT Aorta for Dissection [facility] 09/06 02:35 Order name: BIPAP [facility] 09/06 08:58 Order name: CT [facility] 09/05 21:00 Order name: EKG - Nurse/Tech; Complete Time: : [facility] 09/05 21:00 Order name: IV Saline Lock; Complete Time: :22 09/05 21:00 Order name: Labs collected and sent; Complete Time: 21:23 [facility] 09/05 21:00 Order name: O2 Per Protocol; Complete Time: :23 [facility] 09/05 21:00 Order name: O2 Sat Monitoring; Complete Time: 21:23 Administered Medications: 09/05 21:00 Drug: Metoprolol 5 mg Route: IVP; Site: right antecubital; ls4 21:05 Drug: Metoprolol 5 mg Route: IVP; Site: right antecubital; ls4 21:15 Drug: Metoprolol 5 mg Route: IVP; Site: right antecubital; ls4 21:25 Drug: NS 0.9% 1000 ml Route: IV; Rate: 1000 ml; Site: right antecubital; ls4 09/06 00:57 Follow up: IV Status: Completed infusion; IV Intake: 1000ml ls4 09/05 22:41 Drug: Sotalol 80 mg Route: PO; ls4 23:00 Follow up: Response: No adverse reaction; Marked relief of symptoms ls4 22:42 Drug: Lovenox 140 mg Route: Sub-Q; Site: right lower abdomen; ls4 09/06 00:58 Follow up: Response: No adverse reaction ls4 01:51 Drug: Metoprolol 5 mg Route: IVP; Site: right antecubital; ls4 02:15 Drug: Lasix 80 mg Route: IVP; Site: right antecubital; ls4 02:16 Follow up: Response: No adverse reaction ls4 03:01 Drug: Zosyn 3.375 grams Route: IVPB; Infused Over: 60 mins; Site: right antecubital; rv Disposition: 09/07 06:49 Co-signature as Attending Physician, Twan Branham MD I agree with the assessment and 4 plan of care. Disposition: 09/05/19 22:59 Hospitalization ordered by Genesis Starks for Inpatient Admission. Preliminary diagnosis are Chest pain, unspecified, Atrial fibrillation and flutter - with RVR, Acute pulmonary edema, Hypoxemia, Abnormal findings on diagnostic imaging of lung. - Bed requested for Telemetry/MedSurg (Inpatient). - Status is Inpatient Admission. jl7 - Condition is Fair. - Problem is new. - Symptoms have improved. UTI on Admission? No Critical care time excluding procedures: 09/06 02:52 Critical care time: Bedside Care: 30 minutes, Consultation: 10 minutes, Family jr8 Intervention: 10 minutes. Total time: 50 minutes Signatures: Dispatcher [employer] Maira Harp RN RN Elvi Cardoza RN RN bb Herbert Hoff PA PA jr8 Gómez Ceja RN RN jl7 Twan Branham MD MD tw4 Shahzad Motta RN RN rv Deborah Cooper RN RN ls4 Corrections: (The following items were deleted from the chart) 00:20 09/05 22:59 Hospitalization Ordered by Genesis Starks MD for Inpatient Admission. dw Preliminary diagnosis is Chest pain, unspecified; Atrial fibrillation and flutter - with RVR. Bed requested for Intensive Care Unit. Status is Inpatient Admission. Condition is Fair. Problem is new. Symptoms have improved. UTI on Admission? No. jr8 09/06 03:08 00:20 09/05/2019 22:59 Hospitalization Ordered by Genesis Starks MD for Inpatient jr8 Admission. Preliminary diagnosis is Chest pain, unspecified; Atrial fibrillation and flutter - with RVR. Bed requested for [facility] ER HOLD. Status is Inpatient Admission. Condition is Fair. Problem is new. Symptoms have improved. UTI on Admission? No. dw 12:49 03:08 09/05/2019 22:59 Hospitalization Ordered by Genesis Starks MD for Inpatient dw Admission. Preliminary diagnosis is Chest pain, unspecified; Atrial fibrillation and flutter - with RVR; Acute pulmonary edema; Hypoxemia; Abnormal findings on diagnostic imaging of lung. Bed requested for [facility] ER HOLD. Status is Inpatient Admission. Condition is Fair. Problem is new. Symptoms have improved. UTI on Admission? No. jr8 12:50 12:49 09/05/2019 22:59 Hospitalization Ordered by Genesis Starks MD for Inpatient dw Admission. Preliminary diagnosis is Chest pain, unspecified; Atrial fibrillation and flutter - with RVR; Acute pulmonary edema; Hypoxemia; Abnormal findings on diagnostic imaging of lung. Bed requested for Telemetry/MedSurg (Inpatient). Status is Inpatient Admission. Condition is Fair. Problem is new. Symptoms have improved. UTI on Admission? No. dw 14:24 12:50 09/05/2019 22:59 Hospitalization Ordered by Genesis Starks MD for Inpatient jl7 Admission. Preliminary diagnosis is Chest pain, unspecified; Atrial fibrillation and flutter - with RVR; Acute pulmonary edema; Hypoxemia; Abnormal findings on diagnostic imaging of lung. Bed requested for Telemetry/MedSurg (Inpatient). Status is Inpatient Admission. Condition is Fair. Problem is new. Symptoms have improved. UTI on Admission? No. dw
[2019-09-06] MEDS ORDERED: ACETAMINOPHEN 500 MG TAB PO PRN (00:07)
[2019-09-06] MEDS ORDERED: MORPHINE 4 MG/ML SYR IV PRN (00:07)
[2019-09-06] MEDS ORDERED: CEFTRIAXONE/SWI 1gm 1 GM/10 ML SYR ONE (01:25)
[2019-09-06] MEDS ORDERED: dilTIAZem HCL 25 MG/5 ML VIAL IV ONE (01:47)
[2019-09-06] MEDS ORDERED: METOPROLOL TARTRATE 5 MG/5 ML INJ IV ONE (01:52)
[2019-09-06] MEDS ORDERED: FUROSEMIDE 100 MG/10 ML VIAL IV ONE (01:54)
[2019-09-06] MEDS ORDERED: PIPER/TAZO/NS 3.375gm 3.375 GM/100 ML BAG ONE (02:42)
[2019-09-06 02:52] LABS: Arterial Blood Carboxyhemoglob 2.2 % (0-1.5); Blood Gas Oxyhemoglobin 90.2 % (94-97); Blood O2 Saturation 92.9 % (92-98.5)
--- NOTE | 2019-09-06 06:46 | EKG ---
Test Date: 2019-09-05 Test Time: 20:59:44 Tractor Sweeper Driver: JULIAT MEASUREMENT RESULTS: Intervals: Rate: 161 RI: QRSD: 86 QT: 286 QTc: 468 [place]: P: RI: QRS: 56 T: 103 INTERPRETIVE STATEMENTS: Atrial fibrillation with rapid ventricular response Nonspecific T wave abnormality, probably digitalis effect Abnormal ECG Compared to ECG 06/14/2019 00:54:25 T-wave abnormality now present Atrial flutter no longer present Electronically Signed On 09-06-19 06:45:26 [employer] by Rajeev Lindo
--- NOTE | 2019-09-06 08:15 | RAD REPORT ---
EXAM DESCRIPTION: Dariusz Single View09/05/2019 9:18 pm CLINICAL HISTORY: Shortness of breath COMPARISON: June 2019 FINDINGS: bilateral alveolar opacities are present. The heart is moderately enlarged. Small pleural effusions. IMPRESSION: These findings likely represent moderate CHF
--- NOTE | 2019-09-06 08:57 | RAD REPORT ---
EXAM DESCRIPTION: CT - Angio Aorta For Dissection - 09/06/2019 8:30 am CLINICAL HISTORY: . Chest and abdominal pain COMPARISON: None TECHNIQUE: Computed tomography angiography of the chest, abdomen pelvis were obtained. 100 cc Isovue 370 was administered intravenously. Coronal and sagittal reconstruction were performed. MIP 3D reconstruction was performed All CT scans are performed using dose optimization technique as appropriate and may include automated exposure control or mA/KV adjustment according to patient size. FINDINGS: An aortic dissection is not seen. An aortic aneurysm is not displayed. The celiac, SMA and SUPRIYA are patent . Small to moderate bilateral pleural effusions with bibasilar atelectasis. Mild ground-glass opacities within the lungs. The heart is mildly enlarged. Mild hilar and mediastinal lymphadenopathy presumabl y reactive in nature. This could be monitored on a followup CT chest in 6 months to assess stability/ resolution The liver,spleen, pancreas adrenals kidneys demonstrate no significant abnormality. The appendix is normal. There no evidence diverticulitis. No ascites is noted. Small bilateral inguinal hernias IMPRESSION: Negative for an aortic dissection. CHF
--- NOTE | 2019-09-06 11:17 | EKG ---
Test Date: 2019-09-06 Test Time: 09:20:16 Oven Heater Helper: GEOFFREY MEASUREMENT RESULTS: Intervals: Rate: 136 OH: QRSD: 82 QT: 318 QTc: 478 Sunburst: P: OH: QRS: 85 T: 86 INTERPRETIVE STATEMENTS: Atrial flutter with variable AV block Abnormal ECG Compared to ECG 09/05/2019 20:59:44 Atrial fibrillation no longer present T-wave abnormality no longer present Electronically Signed On 09-06-19 11:15:59 DATA VISUALIZATION DEVELOPER by Malik Josue
--- NOTE | 2019-09-06 11:18 | P.HP ---
Certification for Inpatient Patient admitted to: Inpatient With expected LOS: >2 Midnights Patient will require the following post-hospital care: None Practitioner: I am a practitioner with admitting privileges, knowledge of patient current condition, hospital course, and medical plan of care. Services: Services provided to patient in accordance with Admission requirements found in Title 42 Section 412.3 of the Code of Federal Regulations Patient History Date of Service: 09/06/19 Reason for admission: Respiratory distress /AFib with RVR History of Present Illness: Patient is a 48-year-old gentleman who has a history of atrial fibrillation and cardiomyopathy, but he is not able to afford his medications so he does not follow up regularly with his physician. He came into the emergency room and he was found to be in atrial fibrillation with rapid ventricular response. He has been having palpitations and shortness of breath for the last few days. He wanted to get evaluated because his respiratory status had worsened over the last few days. In the emergency room he was given IV Lopressor and then oral sotalol. His heart rate came down. Shortly after that he was also having worsening shortness of breath and he was placed on BiPAP. He is doing much better. He was diuresed as well. A CT aortic dissection was ordered because his initial symptoms were suggestive of possible vascular pathology. This has been put on hold because of his acute respiratory distress. However, this morning he is feeling better and I do believe we should be able to proceed to evaluate his vascular status. We should be able to wean him off of the BiPAP support as well. Allergies No Known Allergies Allergy (Verified 10/05/17 05:15) Home Medications: Amlodipine [Norvasc*] 10 mg PO DAILY #30 tab 06/14/19 Rivaroxaban [Xarelto] 20 mg PO DAILY #30 tablet 06/14/19 Sotalol HCl [Betapace*] 80 mg PO BID 6AM 6PM #60 tab 06/14/19 carvediloL [Coreg*] 12.5 mg PO BID 6AM 6PM #60 tab 06/14/19 - Past Medical/Surgical History Diabetic: No -: HTN -: Atrial fibrillation -: Tobacco abuse -: CHF, systolic dysfunction -: R. knee sx Psychosocial/ Personal History: Patient is single. - Family History Mother Medical History: Cancer Notes: LNG [place] - non smoker - Social History Smoking Status: Former smoker Review of Systems 10-point ROS is otherwise unremarkable Physical Examination - Vital Signs Temperature: 98 F Blood Pressure: 128/107 Pulse: 113 Respirations: 20 Pulse Ox (%): 95 - Physical Exam General: Alert, In no apparent distress, Oriented x3, Moderate distress HEENT: Atraumatic, PERRLA, Mucous membr. moist/pink, EOMI, Sclerae nonicteric Neck: Supple, 2+ carotid pulse no bruit, No LAD, Without JVD or thyroid abnormality Respiratory: Crackles/rales Cardiovascular: Regular rate/rhythm, Normal S1 S2 Gastrointestinal: Normal bowel sounds, Soft and benign, Non-distended, No tenderness Musculoskeletal: No tenderness Integumentary: No rashes Neurological: Normal gait, Normal speech, Normal strength at 5/5 x4 extr, Normal tone, Sensation intact, Cranial nerves 3-12 intact, Normal affect Lymphatics: No axilla or inguinal lymphadenopathy - Studies Laboratory Data (last 24 hrs) 09/05/19 21:07: PT 13.4 H, INR 1.14 09/05/19 21:07: WBC 11.3 H, Hgb 16.6, Hct 48.8, Plt Count 240 09/05/19 21:07: Sodium 138, Potassium 3.6, BUN 12, Creatinine 1.24, Glucose 96, Magnesium 2.2, Total Bilirubin 0.9, AST 15, ALT 24, Alkaline Phosphatase 65 Assessment & Plan - Problems (Diagnosis) (1) Atrial fibrillation with rapid ventricular response Onset Date: 07/15/17 Current Visit: Yes Status: Acute (2) Acute systolic CHF (congestive heart failure), NYHA class 3 Current Visit: Yes Status: Acute (3) Cardiorenal syndrome with renal failure Current Visit: No Status: Acute (4) Cardiomyopathy Onset Date: 10/05/17 Current Visit: No Status: Chronic Qualifiers: (5) Hypertension Onset Date: 07/15/17 Current Visit: No Status: Chronic Qualifiers: Hypertension type: essential hypertension - Plan 1. Will continue medications for rate control and anticoagulation 2. Continue with strict blood pressure control 3. Echocardiogram 4. Cardiology consultation 5. CT for a aortic dissection 6. gently diurese 7. GI and DVT prophylaxis Discharge Plan: Home Plan to discharge in: Greater than 2 days - Advance Directives Does patient have a Living Will: No Does patient have a Durable POA for Healthcare: No - Code Status/Comfort Care Code Status Assessed: Yes Code Status: Full Code Critical Care: No Time Spent Managing PTS Care (In Minutes): 45
[2019-09-06] MEDS ORDERED: SOTALOL HCL 80 MG TAB PO ONE (13:16)
[2019-09-06] MEDS ORDERED: SOTALOL HCL 80 MG TAB ONE (13:17)
--- NOTE | 2019-09-06 14:02 | ECHO ---
HEIGHT: 6 ft 3 in WEIGHT: 320 lb 0.016 oz DATE OF STUDY: 09/06/[address]: Genesis Starks MD 2-DIMENSIONAL: YES M.MODE: YES DOPPLER: YES COLOR FLOW: YES TDS: YES PORTABLE: NO DEFINITY: NO BUBBLE STUDY: NO DIAGNOSIS: ATRIAL FIBRILLATION CARDIAC HISTORY: CATHERIZATION: NO SURGERY: NO PROSTHETIC VALVE: NO PACEMAKER: NO MEASUREMENTS (cm) DIASTOLIC (NORMALS) SYSTOLIC (NORMALS) IVSd 1.2 (0.6-1.2) LA Diam 4.4 (1.9-4.0) LVEF 20% LVIDd 5.4 (3.5-5.7) LVIDs 5.0 (2.0-3.5) %FS 8% LVPWd 1.4 (0.6-1.2) Ao Diam 3.0 (2.0-3.7) 2 DIMENSIONAL ASSESSMENT: RIGHT ATRIUM: NORMAL LEFT ATRIUM: DILATED RIGHT VENTRICLE: NORMAL LEFT VENTRICLE: NORMAL TRICUSPID VALVE: NORMAL MITRAL VALVE: NORMAL PULMONIC VALVE: NORMAL AORTIC VALVE: NORMAL PERICARDIAL EFFUSION: NONE AORTIC ROOT: NORMAL LEFT VENTRICULAR WALL MOTION: SEVERE GLOBAL HYPOKINESIS. DOPPLER/COLOR FLOW: MILD MITRAL AND TRICUSPID REGURGITATION. COMMENTS: MILD MITRAL AND TRICUSPID REGURGITATION. SEVERE GLOBAL HYPOKINESIS. EJECTION FRACTION 20%. ATRIAL FIBRILLATION. TECHNOLOGIST: MONA SAL
--- NOTE | 2019-09-06 14:36 | CON ---
Date of Consultation: 09/06/[address] Starks on 09/06/2019. I saw the patient on 09/06/2019. Reason For Consultation: Atrial fibrillation. History Of Present Illness: Mr. Abel is a 48-year-old white male who has a history of atrial fibri llation, chronic systolic congestive heart failure, hypertension, chronic renal insufficiency, came i n with atrial fibrillation and congestive heart failure. He claims he has not taken his medication f or about 2 weeks because he ran out of it. Denied chest pain or syncope, but has had shortness of br eath, PND, orthopnea and pedal edema. He was found on chest x-ray to have CHF. Allergies: NONE. Review of Systems: Negative. Social History: Negative. Family History: Noncontributory. Medications: At home include Norvasc, Xarelto, sotalol 80 mg b.i.d., Coreg 12.5 mg b.i.d. but he has not taken it for 2 weeks. Physical Examination: General: He weighed 320 pounds. HEENT: Negative. Vital Signs: He was in atrial fibrillation at a rate of 90, afebrile. Chest: Clear on the right. He had some rales on the left base. Cardiac: Revealed an irregularly irregular rhythm and rate without any murmurs, gallops, or rubs. Abdomen: Obese, but benign. Extremities: Revealed 1+ edema. Diagnostic Data: Creatinine is 1.24. BNP is 7754. On CPAP, his pO2 was 66, pCO2 was 31 with a pH o f 7.42. His white count was 11,000. Last echocardiogram in June showed an EF of 35% to 39%. Patient presently was given beta blockers. He is on also Xanax and Lovenox. He has already received some IV Lasix. What I will like to do with Mr. Abel is put him back on his sotalol, Coreg, Xarelt o, Norvasc, Lasix. I would like to increase his Betapace from 80 in the morning and 80 in the evenin g to 80 in the morning and 160 in the evening. If he does not convert by tomorrow, we will consider a cardioversion. Echocardiogram is pending. His blood pressure is fairly well controlled and his re nal function has been stable. NB/MODL Voice ID: [id number] Report ID: [id number]
[2019-09-06] MEDS ORDERED: NA CHLORIDE 0.9% 500 ML ONE (15:06)
[2019-09-06] MEDS ORDERED: FUROSEMIDE 20 MG/ 2ML VIAL IV ONE (16:01)
[2019-09-06] MEDS: FUROSEMIDE 40 MG/4 ML VIAL IV ONE ×2 (16:01→16:19)
[2019-09-06 16:55] LABS: Albumin 3.4 g/dL (3.4-5.0); Bilirubin Total 0.9 mg/dL (0.2-1.0); Potassium 4.1 mmol/L (3.5-5.1); Protein, Total 7.1 g/dL (6.4-8.2)
[2019-09-06 16:59] LABS: Absolute Lymphocytes (CBC) 1.8 K/uL (0.7-4.9); Basophils % 0.9 % (0-1.3); Hematocrit 46.7 % (39.6-49.0); Lymphocytes % 18.1 % (15.3-44.8); MPV 9.5 fL (7.6-11.3); RBC Red Blood Cell Count 4.66 M/uL (4.33-5.43)
[2019-09-06] MEDS: RIVAROXABAN 20 MG TABLET PO SCH (17:00)
[2019-09-06 17:55] LABS: Urine Appearance CLEAR; Urine Bilirubin NEGATIVE (NEG); Urine Blood NEGATIVE (NEG); Urine Color YELLOW; Urine Glucose NEGATIVE (NEG); Urine Protein NEGATIVE (NEG)
[2019-09-06] MEDS: SOTALOL HCL 80 MG TAB PO SCH (18:00)
[2019-09-06 18:03] LABS: Blood Morphology Comment NOT SEEN (NOT SEEN); Platelet Estimate ADEQ
[2019-09-06 18:11] LABS: Urine Bacteria <20 /HPF (NONE SEEN); Urine Culture Reflex Order NOT NEEDED; Urine Mucus 1+ /HPF (NONE SEEN); Urine RBC <5 /HPF (NONE SEEN)
[2019-09-06] MEDS: ALPRAZOLAM 0.25 MG TABLET PO PRN (21:57)
[2019-09-07 04:57] LABS: Absolute Lymphocytes (CBC) 3.5 K/uL (0.7-4.9); Hematocrit 45.2 % (39.6-49.0); Lymphocytes % 36.4 % (15.3-44.8); MPV 9.4 fL (7.6-11.3); RBC Red Blood Cell Count 4.45 M/uL (4.33-5.43)
[2019-09-07] MEDS: ALPRAZOLAM 0.25 MG TABLET PO PRN (05:10)
[2019-09-07] MEDS: SOTALOL HCL 80 MG TAB PO SCH ×2 (05:10→18:29)
[2019-09-07 05:14] LABS: Potassium 4.1 mmol/L (3.5-5.1)
[2019-09-07] MEDS ORDERED: RIVAROXABAN 20 MG TABLET PO SCH (09:00)
[2019-09-07] MEDS ORDERED: AMLODIPINE 10 MG TAB PO SCH (09:00)
--- NOTE | 2019-09-07 13:31 | P.PN ---
Subjective Date of Service: 09/07/19 Chief Complaint: Respiratory distress /AFib with RVR Patient is reporting inability to take full breaths. Review of Systems Respiratory: Shortness of Breath Cardiovascular: Palpitations Physical Examination - Vital Signs Temperature: 97 F Blood Pressure: 137/78 Pulse: 105 Respirations: 18 Pulse Ox (%): 98 - Physical Exam General: Alert, In no apparent distress HEENT: Atraumatic, PERRLA, EOMI Neck: Supple, JVD not distended Respiratory: Diminished, Crackles/rales Cardiovascular: Normal S1 S2, Edema, Irregular heart rate/rhythm Gastrointestinal: Normal bowel sounds, No tenderness Musculoskeletal: No tenderness Integumentary: No rashes Neurological: Normal speech, Normal tone, Normal affect Lymphatics: No axilla or inguinal lymphadenopathy - Studies Laboratory Tests 09/06/19 09/06/19 09/07/19 02:35 16:37 04:41 WBC 9.5 Hgb 15.4 Hct 45.2 MCV 101.6 H Plt Count 229 pCO2 31.2 L pO2 66.1 L Sodium Potassium Chloride Creatinine Estimated GFR Procalcitonin < 0.05 09/07/19 04:41 WBC Hgb Hct MCV Plt Count pCO2 pO2 Sodium 142 Potassium 4.1 Chloride 106 Creatinine 1.32 H Estimated GFR 58 L Procalcitonin Medications List Reviewed: Yes Assessment And Plan - Plan #Atrial fibrillation with rapid ventricular response-due to noncompliance. Dose increase- sotalol. -re-initiated on anti coagulation. -evening or night nurse supervisor is following. Cardioversion on hold as patient was off OAC for weeks. -continue telemonitoring. Compliance advised # Acute systolic CHF (congestive heart failure), NYHA class 3 -fluid restriction, low-salt diet, monitoring inputs and outputs and low-dose Lasix. -EF less than 20%. # Pleural effusion-noted on CT. Probable etiology of inability to take full breaths. Obtain chest ultrasound. -incentive spirometry -albuterol and pulmonary toileting. #Cardiorenal syndrome with renal failure-creatinine is close to baseline. -continue IV Lasix. -avoid nephrotoxins as much as possible. Trend creatinine closely. #Hypertension-noncompliance with medications. -resumed anti hypertensives P -monitor blood pressure closely. #Obesity-weight loss strongly advised. DVT prophylaxis-on oral anti coagulation. Patient is full code
--- NOTE | 2019-09-07 13:49 | EKG ---
Test Date: 2019-09-06 Test Time: 16:15:02 Lighter Captain: SALLY MEASUREMENT RESULTS: Intervals: Rate: 111 ND: QRSD: 94 QT: 370 QTc: 503 [place]sk: P: ND: QRS: 83 T: 100 INTERPRETIVE STATEMENTS: Atrial fibrillation with rapid ventricular response Nonspecific T wave abnormality, probably digitalis effect Abnormal ECG Compared to ECG 09/06/2019 09:20:16 T-wave abnormality now present Atrial flutter no longer present Electronically Signed On 09-07-19 13:45:59 SPINNING BATH PERSON by Malik Josue
--- NOTE | 2019-09-07 15:11 | RAD REPORT ---
EXAM DESCRIPTION: US - Chest - 09/07/2019 3:04 pm CLINICAL HISTORY: Pleural effusion COMPARISON: September 06, 2019 cat FINDINGS: Small to moderate bilateral pleural effusions are present right greater than left. IMPRESSION: Small to moderate bilateral pleural effusions right greater than left
[2019-09-07] MEDS: FUROSEMIDE 20 MG/ 2ML VIAL IV SCH (16:27)
[2019-09-07] MEDS: RIVAROXABAN 20 MG TABLET PO SCH (16:28)
[2019-09-08 05:07] LABS: Absolute Lymphocytes (CBC) 2.7 K/uL (0.7-4.9); Hematocrit 41.8 % (39.6-49.0); Lymphocytes % 29.2 % (15.3-44.8); RBC Red Blood Cell Count 4.13 M/uL (4.33-5.43)
[2019-09-08] MEDS: SOTALOL HCL 80 MG TAB PO SCH (05:23)
[2019-09-08 05:26] VITALS: BMI 39.0
[2019-09-08 05:30] LABS: Potassium 3.5 mmol/L (3.5-5.1)
[2019-09-08] MEDS: FUROSEMIDE 20 MG/ 2ML VIAL IV SCH (08:20)
[2019-09-08] MEDS ORDERED: lisinopriL 5 MG TAB PO SCH (09:00)
[2019-09-08 12:21] VITALS: BP 118/82; TEMP 95.8
--- NOTE | 2019-09-08 15:21 | P.DS ---
Admission Date: 09/06/19 Discharge Date: 09/08/19 Disposition: ROUTINE DISCHARGE Discharge Condition: FAIR Reason for Admission: Respiratory distress /AFib with RVR Brief History of Present Illness: History of Present Illness: Patient is a 48-year-old gentleman who has a history of atrial fibrillation and cardiomyopathy, but he is not able to afford his medications so he does not follow up regularly with his physician. He came into the emergency room and he was found to be in atrial fibrillation with rapid ventricular response. He has been having palpitations and shortness of breath for the last few days. He wanted to get evaluated because his respiratory status had worsened over the last few days. In the emergency room he was given IV Lopressor and then oral sotalol. His heart rate came down. Shortly after that he was also having worsening shortness of breath and he was placed on BiPAP. He is doing much better. He was diuresed as well. A CT aortic dissection was ordered because his initial symptoms were suggestive of possible vascular pathology. This has been put on hold because of his acute respiratory distress. However, this morning he is feeling better and I do believe we should be able to proceed to evaluate his vascular status. We should be able to wean him off of the BiPAP support as well. Hospital Course: Patient was admitted for acute systolic CHF exacerbation. He was started on increased diuretics. Patient was noted in AFib with RVR. He was evacuated by Cardiology on initial cardioversion was planned if persistent atrial fib s. He was eventually found out that he has not been on anticoagulation due to medication nonadherence . His Planned cardioversion was held and dosage of sotalol increased. Patient shortness of breath significantly improve his CTs well controlled now he is on amlodipine was switched to lisinopril. He had an echocardiogram that showed EF of 20% with global hypokinesis. He will be discharged home today to follow up with Cardiology in 1 week Vital Signs/Physical Exam: Temp Pulse Resp BP Pulse Ox 95.8 F L 112 H 16 118/82 98 09/08/19 12:09/08/19 12:09/08/19 12:00 09/08/19 12:09/08/19 12:00 General: Alert, In no apparent distress, Oriented x3 HEENT: Atraumatic, Normocephalic, PERRLA Neck: 2+ carotid pulse no bruit, JVD not distended Respiratory: Clear to auscultation bilaterally, Normal air movement Cardiovascular: Normal pulses, Regular rate/rhythm, Normal S1 S2, Edema (trace b /l le) Gastrointestinal: Normal bowel sounds, Soft and benign, Non-distended Musculoskeletal: No clubbing, No swelling Integumentary: No breakdown, No significant lesion, No tenderness/swelling Neurological: Normal gait, Normal speech, Normal strength at 5/5 x4 extr Laboratory Data at Discharge: WBC 9.2 K/uL (4.3-10.9) 09/08/19 04:39 Hgb 14.4 g/dL (13.6-17.9) 09/08/19 04:39 Hct 41.8 % (39.6-49.0) 09/08/19 04:39 Plt Count 247 K/uL (152-406) 09/08/19 04:39 PT 13.4 SECONDS (9.5-12.5) H 09/05/19 21:07 INR 1.14 09/05/19 21:07 Sodium 139 mmol/L (136-145) 09/08/19 04:39 Potassium 3.5 mmol/L (3.5-5.1) 09/08/19 04:39 BUN 17 mg/dL (7-18) 09/08/19 04:39 Creatinine 1.13 mg/dL (0.55-1.3) 09/08/19 04:39 Glucose 82 mg/dL (74-106) 09/08/19 04:39 Magnesium 2.2 mg/dL (1.8-2.4) 09/05/19 21:07 Total Bilirubin 0.9 mg/dL (0.2-1.0) 09/06/19 16:24 AST 25 U/L (15-37) 09/06/19 16:24 ALT 29 U/L (12-78) 09/06/19 16:24 Alkaline Phosphatase 62 U/L (45-117) 09/06/19 16:24 Troponin I < 0.02 ng/mL (0.0-0.045) 09/06/19 16:13 Home Medications: Rivaroxaban [Xarelto] 20 mg PO DAILY #30 tablet 06/14/19 carvediloL [Coreg*] 12.5 mg PO BID 6AM 6PM #60 tab 06/14/19 Furosemide [Lasix] 40 mg PO BID #60 tablet 09/08/19 Sotalol HCl [Betapace*] 80 mg PO [id number] #30 tab 09/08/19 Sotalol HCl [Betapace*] 160 mg PO DAILY 6PM #30 tab 09/08/19 lisinopriL [Prinivil*] 5 mg PO DAILY #30 tab 09/08/19 New Medications: Furosemide [Lasix] 40 mg PO BID #60 tablet lisinopriL [Prinivil*] 5 mg PO DAILY #30 tab Sotalol HCl [Betapace*] 160 mg PO DAILY 6PM #30 tab Sotalol HCl [Betapace*] 80 mg PO [id number] #30 tab Diet: Low sodium Activity: Ad mohit Followup: Malik Josue MD [ACTIVE - CAN ADMIT] - 1 Week Time spent managing pt's care (in minutes): 35
[2019-09-08 18:07] VITALS: O2SAT 94
== END 2019-09-08 16:00 | disposition home or self-care (01) | DRG 291 ==
LOC: ER 20:41 → ERHOLD 09-06 00:07 → 4TH 09-06 13:35
PROVIDERS: ADMIT Hospitalist; ATTEND Hospitalist
DX: I13.0 Hypertensive heart and chronic kidney disease with heart failure and stage 1 through stage 4 chronic kidney disease, or unspecified chronic kidney disease (principal); I50.23 Acute on chronic systolic (congestive) heart failure; I50.20 Unspecified systolic (congestive) heart failure; I42.9 Cardiomyopathy, unspecified; I48.91 Unspecified atrial fibrillation; I10 Essential (primary) hypertension; F17.200 Nicotine dependence, unspecified, uncomplicated; R06.03 Acute respiratory distress; N18.9 Chronic kidney disease, unspecified; E66.9 Obesity, unspecified; Z68.39 Body mass index [BMI] 39.0-39.9, adult; Z91.19 Patient's noncompliance with other medical treatment and regimen
CPT/HCPCS: 36415; 71045; 71275; 74175; 76604; 80048; 80053; 80076; 81001; 82805; 82947; 83605; 83735; 83880; 84145; 84484; 85025; 85610; 87040; 93005; 93306; 94660; 96361; 96372; 96374; 96375; 99284; J0696; J1650; J1940; J2543; J2930; J7030; J7040; Q9967

== ENCOUNTER 2021-04-11 09:44 | Inpatient (IN) | payer SELFPAY ==
[2021-04-11 11:02] LABS: Absolute Lymphocytes (CBC) 2.7 K/uL (0.7-4.9); Basophils % 0.7 % (0-1.3); Hematocrit 46.4 % (39.6-49.0); Lymphocytes % 30.8 % (15.3-44.8); MPV 7.9 fL (7.6-11.3); RBC Red Blood Cell Count 4.57 M/uL (4.33-5.43)
[2021-04-11] MEDS ORDERED: ENOXAPARIN 100 MG/ML SYR SQ ONE (11:16)
[2021-04-11] MEDS ORDERED: METOPROLOL TAR 50 MG TAB ONE (11:16)
[2021-04-11 11:17] LABS: Protime INR 0.97
[2021-04-11] MEDS ORDERED: METOPROLOL TARTRATE 5 MG/5 ML INJ IV ONE (11:17)
[2021-04-11] MEDS ORDERED: FAMOTIDINE 20 MG/2 ML VIAL IV ONE (11:17)
[2021-04-11 11:31] LABS: ALT/SGPT 37 U/L (12-78); AST/SGOT 26 U/L (15-37); Albumin 3.8 g/dL (3.4-5.0); Alkaline Phosphatase 55 U/L (45-117); BUN Blood Urea Nitrogen 12 mg/dL (7-18); Bicarbonate 25 mmol/L (21-32); Bilirubin Direct 0.1 mg/dL (0-0.2); Bilirubin Total 0.6 mg/dL (0.2-1.0); Glucose Level 117 mg/dL (74-106); Lipase 94 U/L (73-393); NT PRO-BNP 330 pg/mL (<125); Potassium 3.7 mmol/L (3.5-5.1); Protein, Total 7.7 g/dL (6.4-8.2); Sodium Level 140 mmol/L (136-145); Troponin (Emerg Dept Use Only) < 0.02 ng/mL (0.0-0.045)
--- NOTE | 2021-04-11 12:01 | RAD REPORT ---
EXAM DESCRIPTION: Dariusz Single View04/11/2021 11:23 am CLINICAL HISTORY: Chest pain COMPARISON: 2019 FINDINGS: The lungs appear clear of acute infiltrate. The heart is mildly enlarged IMPRESSION: No acute abnormalities displayed
--- NOTE | 2021-04-11 12:32 | EDPHYS ---
Physician Documentation [facility] Name: Iván Abel Age: 50 yrs Sex: Male : 1970 Arrival Date: 04/11/2021 Time: 09:46 Bed 4 Private MD: ED Physician Omkar Leroy HPI: 04/11 12:25 This 50 yrs old Male presents to ER via Ambulatory with complaints of Chest gabby Pain, Shortness Of Breath. 12:25 The patient or guardian reports chest pain that is located primarily in the anterior gabby chest wall, bilaterally. Onset: this morning, today. The pain does not radiate. Associated signs and symptoms: Pertinent positives: dizziness, lightheadedness, nausea, shortness of breath. The chest pain is described as a heaviness. Duration: The patient or guardian reports a single episode, that is now resolved. Modifying factors: The symptoms are alleviated by nothing. the symptoms are aggravated by nothing. Severity of pain: At its worst the pain was moderate in the emergency department the pain has resolved and did so after initial therapy. The patient has experienced similar episodes in the past, several times. Historical: - Allergies: 10:18 No Known Allergies; aa5 - Home Meds: 10:18 carvedilol 12.5 mg Oral tab 1 tab 2 times per day [Active]; sotalol 80 mg Oral tab 1 aa5 tab 2 times per day [Active]; lisinopril 5 mg Oral tab once daily [Active]; furosemide 40 mg oral tab 2 times per day [Active]; - PMHx: 10:18 Atrial Fib; Hypertension; CHF; aa5 - Immunization history:: Client reports having NOT received the Covid vaccine. - Social history:: Smoking status: unknown. - Family history:: not pertinent. ROS: 12:25 Constitutional: Negative for fever, chills, and weight loss, Eyes: Negative for injury, gabby pain, redness, and discharge, ENT: Negative for injury, pain, and discharge, Neck: Negative for injury, pain, and swelling, Respiratory: Negative for shortness of breath, cough, wheezing, and pleuritic chest pain, Abdomen/GI: Negative for abdominal pain, nausea, vomiting, diarrhea, and constipation, Back: Negative for injury and pain, : Negative for injury, bleeding, discharge, and swelling, MS/Extremity: Negative for injury and deformity, Skin: Negative for injury, rash, and discoloration, Neuro: Negative for headache, weakness, numbness, tingling, and seizure, Psych: Negative for depression, anxiety, suicide ideation, homicidal ideation, and hallucinations, Allergy/Immunology: Negative for hives, rash, and allergies, Endocrine: Negative for neck swelling, polydipsia, polyuria, polyphagia, and marked weight changes, Hematologic/Lymphatic: Negative for swollen nodes, abnormal bleeding, and unusual bruising. 12:25 Cardiovascular: Positive for palpitations. Exam: 12:25 Constitutional: This is a well developed, well nourished patient who is awake, alert, gabby and in no acute distress. Head/Face: Normocephalic, atraumatic. Eyes: Pupils equal round and reactive to light, extra-ocular motions intact. Lids and lashes normal. Conjunctiva and sclera are non-icteric and not injected. Cornea within normal limits. Periorbital areas with no swelling, redness, or edema. ENT: Nares patent. No nasal discharge, no septal abnormalities noted. Tympanic membranes are normal and external auditory canals are clear. Oropharynx with no redness, swelling, or masses, exudates, or evidence of obstruction, uvula midline. Mucous membranes moist. Neck: Trachea midline, no thyromegaly or masses palpated, and no cervical lymphadenopathy. Supple, full range of motion without nuchal rigidity, or vertebral point tenderness. No Meningismus. Chest/axilla: Normal chest wall appearance and motion. Nontender with no deformity. No lesions are appreciated. Respiratory: Lungs have equal breath sounds bilaterally, clear to auscultation and percussion. No rales, rhonchi or wheezes noted. No increased work of breathing, no retractions or nasal flaring. Abdomen/GI: Soft, non-tender, with normal bowel sounds. No distension or tympany. No guarding or rebound. No evidence of tenderness throughout. Back: No spinal tenderness. No costovertebral tenderness. Full range of motion. Male : Normal genitalia with no discharge or lesions. Skin: Warm, dry with normal turgor. Normal color with no rashes, no lesions, and no evidence of cellulitis. MS/ Extremity: Pulses equal, no cyanosis. Neurovascular intact. Full, normal range of motion. Neuro: Awake and alert, GCS 15, oriented to person, place, time, and situation. Cranial nerves II-XII grossly intact. Motor strength 5/5 in all extremities. Sensory grossly intact. Cerebellar exam normal. Normal gait. Psych: Awake, alert, with orientation to person, place and time. Behavior, mood, and affect are within normal limits. 12:25 Cardiovascular: Rate: tachycardic, Rhythm: regular, Pulses: Pulses are 4+ in bilateral radial, brachial, femoral, popliteal, posterior tibial and and dorsalis pedis arteries.. Heart sounds: normal, Edema: is not appreciated, JVD: is not appreciated. 12:25 ECG was reviewed by the Attending Physician. Vital Signs: 10:08 BP 138 / 95; Pulse 85; Resp 24 S; Temp 98.3(O); Pulse Ox 100% on R/A; aa5 11:12 BP 127 / 84; Pulse 80; Resp 21 S; Pulse Ox 99% on R/A; jd3 12:15 BP 109 / 90; Pulse 84; Resp 19 S; Pulse Ox 100% on R/A; jd3 13:30 BP 111 / 86; Pulse 91; Resp 22; Pulse Ox 99% ; rb3 14:30 BP 129 / 98; Pulse 78; Resp 23; Pulse Ox 98% ; rb3 15:27 BP 128 / 89; Pulse 98; Resp 19 S; Pulse Ox 100% on R/A; jd3 16:30 BP 104 / 82; Pulse 86; Resp 20; Pulse Ox 98% ; rb3 17:30 BP 124 / 74; Pulse 88; Resp 19; Pulse Ox 98% ; rb3 18:30 BP 132 / 84; Pulse 92; Resp 17; Pulse Ox 97% ; rb3 MDM: 10:18 Patient medically screened. gabby 12:28 Differential diagnosis: abnormal EKG, acute myocardial infarction, anxiety, coronary gabby artery disease chest wall pain, congestive heart failure cholecystitis, pancreatitis, pericarditis, pneumonia, stable angina, unstable angina. HEART Score: History: Slightly Suspicious (0), ECG: Non specific repolarization disturbance / LBTB / PM (1), Age: > 45 and < 65 years (1), Risk Factors: > or = 3 Risk factors for atherosclerotic disease (2), [Hypercholesterolemia] [Hypertension] [+ Family HX] [Obesity] Troponin: < or = 1 x Normal Limit (0). The patient was given aspirin in the Emergency Department. The patient's deep vein thrombosis risk score was calculated as follows: Total Score: 0. This patient was found to be at low risk for a deep vein thrombosis by using the Well's assessment criteria. The patient's pulmonary embolism risk score was calculated as follows: the patients heart rate is greater than 100 beats per minute (1.5 Pts) Total Score: 0-2 points. This patient was found to be at low risk for a pulmonary embolism by using the Well's assessment criteria. DIANE Risk Score: 1 - Three or more CAD risk factors, TOTAL SCORE = 1. Data reviewed: vital signs, nurses notes, lab test result(s), EKG, radiologic studies, plain films. Data interpreted: residential child care counselor: rate is 84 beats/min, rhythm is regular, Pulse oximetry: on room air is 100 %. Test interpretation: by ED physician or midlevel provider: ECG, plain radiologic studies. Counseling: I had a detailed discussion with the patient and/or guardian regarding: the historical points, exam findings, and any diagnostic results supporting the discharge/admit diagnosis, lab results, radiology results, the need for further work-up and treatment in the hospital. 04/11 10:29 Order name: Basic Metabolic Panel [facility] 04/11 10:29 Order name: CBC with Diff [facility] 04/11 10:29 Order name: LFT's 04/11 10:29 Order name: Magnesium gabby 04/11 10:29 Order name: NT PRO-BNP; Complete Time: 11:55 [facility] 04/11 10:29 Order name: PT-INR; Complete Time: 11:55 [facility] 04/11 10:29 Order name: Troponin (emerg Dept Use Only); Complete Time: 11:55 gabby 04/11 10:29 Order name: TSH; Complete Time: 11:55 [facility] 04/11 10:29 Order name: Lipase; Complete Time: 11:55 [facility] 04/11 10:29 Order name: COVID-19 : Document "Date of Symptom Onset" if Symptomatic. [facility] 04/11 10:30 Order name: Basic Metabolic Panel; Complete Time: 11:55 [facility] 04/11 10:30 Order name: CBC with Automated Diff [facility] 04/11 10:30 Order name: Liver (Hepatic) Function; Complete Time: 11:55 EDMS 04/11 10:30 Order name: Magnesium; Complete Time: 11:55 [facility]MS 04/11 10:29 Order name: XRAY Chest (1 view); Complete Time: 12:24 [facility] 04/11 13:12 Order name: CBC Smear Scan [facility] 04/11 14:09 Order name: Troponin I [facility] 04/11 14:09 Order name: Basic Metabolic Panel [facility] 04/11 14:09 Order name: CKMB Creatine Kinase MB EDMS 04/11 14:09 Order name: Creatine Phosphokinase [facility]MS 04/11 14:09 Order name: PTT, Activated Partial Thromb [facility] 04/11 14:09 Order name: Lipid Profile [facility] 04/11 14:09 Order name: Lipid Profile [facility] 04/11 14:10 Order name: Echo with Doppler [facility] 04/11 14:10 Order name: CBC with Automated Diff [facility] 04/11 14:10 Order name: CBC with Automated Diff [facility] 04/11 14:10 Order name: Chest Single View [facility] 04/11 15:48 Order name: SARS-COV-2 RT PCR [facility] 04/11 10:29 Order name: EKG; Complete Time: 10:30 [facility] 04/11 10:29 Order name: Cardiac monitoring; Complete Time: 10:45 [facility] 04/11 10:29 Order name: EKG - Nurse/Tech; Complete Time: 10:45 [facility] 04/11 10:29 Order name: IV Saline Lock; Complete Time: 11:08 gabby 04/11 10:29 Order name: Labs collected and sent; Complete Time: 11:08 [facility] 04/11 10:29 Order name: O2 Per Protocol; Complete Time: 10:45 [facility] 04/11 10:29 Order name: O2 Sat Monitoring; Complete Time: 10:45 [facility] 04/11 14:09 Order name: CONS Physician Consult [facility] 04/11 14:09 Order name: Heart Healthy [facility] 04/11 14:10 Order name: EKG Electrocardiogram [facility] 04/11 14:10 Order name: EKG Electrocardiogram [facility] 04/11 14:10 Order name: EKG Electrocardiogram [facility] 04/11 14:10 Order name: EKG Electrocardiogram [facility] EC:25 Rate is 116 beats/min. Rhythm is irregularly irregular. QRS [place] is Normal. [place] interval gabby is normal. QRS interval is normal. QT interval is normal. No Q waves. T waves are Normal. No ST changes noted. Clinical impression: Atrial Fibrillation. Interpreted by me. Reviewed by me. Administered Medications: 11:05 Drug: Pepcid (famotidine) 20 mg Route: IVP; Site: right antecubital; rb3 12:00 Follow up: Response: No adverse reaction jd3 11:05 Drug: Lovenox (enoxaparin) 100 mg Route: Sub-Q; Site: left lower abdomen; rb3 12:00 Follow up: Response: No adverse reaction jd3 11:05 Drug: Lopressor (metoprolol TARTRATE) 50 mg Route: PO; rb3 12:00 Follow up: Response: No adverse reaction jd3 11:05 Drug: Lopressor (metoprolol) 2.5 mg {Note: BP 142/81, P 83.} Route: IVP; Site: right rb3 antecubital; 12:00 Follow up: Response: No adverse reaction jd3 11:33 Drug: Lopressor (metoprolol) 2.5 mg {Note: 113/77 BP and 83 HR.} Route: IVP; Site: jd3 right antecubital; 12:25 Follow up: Response: No adverse reaction jd3 Disposition Summary: 04/11/21 12:32 Hospitalization Ordered Hospitalization Status: Observation gabby Provider: George Mejia cha Location: Telemetry/MedSurg (observation) gabby Condition: Stable gabby Problem: new gabby Symptoms: have improved gabby Bed/Room Type: Standard gabby Room Assignment: 230(04/11/21 17:30) em1 Diagnosis - Chest pain, unspecified gabby - Unspecified atrial fibrillation - with RVR gabby - Dyspnea gabby - Syncope Near gabby Forms: - Medication Reconciliation Form gabby - SBAR form gabby Signatures: Dispatcher [employer] EDOmkar Mares MD MD cha Martinez, Eric em1 Sarah Barber RN RN aa5 Magdi Wen RN RN jd3 Estela Contreras RN RN rb3 Corrections: (The following items were deleted from the chart) 17:30 12:32 gabby em1
--- NOTE | 2021-04-11 12:32 | ER ---
Nurse's Notes [facility] Name: Iván Abel Age: 50 yrs Sex: Male : 1970 Arrival Date: 04/11/2021 Time: 09:46 Bed 4 Private MD: Diagnosis: Chest pain, unspecified;Unspecified atrial fibrillation-with RVR;Dyspnea;Syncope Near Presentation: 04/11 10:08 Chief complaint: Patient states: SOB x 1 week ago and chest pain today. Pt reports aa5 baseline cough, denies recent illness. Pt diaphoretic during triage ,pt states "I just sweat a lot". 10:08 Coronavirus screen: At this time, the client does not indicate any symptoms associated aa5 with coronavirus-19. Ebola Screen: Patient negative for fever greater than or equal to 101.5 degrees Fahrenheit, and additional compatible Ebola Virus Disease symptoms. Initial Sepsis Screen: Does the patient meet any 2 criteria? HR > 90 bpm. Does the patient have a suspected source of infection? No. Patient's initial sepsis screen is negative. Risk Assessment: Do you want to hurt yourself or someone else? Patient reports no desire to harm self or others. Onset of symptoms was 2020. 10:08 Acuity: SILAS 2 aa5 10:08 Method Of Arrival: Ambulatory aa5 Historical: - Allergies: 10:18 No Known Allergies; aa5 - Home Meds: 10:18 carvedilol 12.5 mg Oral tab 1 tab 2 times per day [Active]; sotalol 80 mg Oral tab 1 aa5 tab 2 times per day [Active]; lisinopril 5 mg Oral tab once daily [Active]; furosemide 40 mg oral tab 2 times per day [Active]; - PMHx: 10:18 Atrial Fib; Hypertension; CHF; aa5 - Immunization history:: Client reports having NOT received the Covid vaccine. - Social history:: Smoking status: unknown. - Family history:: not pertinent. Screenin:09 Abuse screen: Denies threats or abuse. Nutritional screening: No deficits noted. jd3 Tuberculosis screening: No symptoms or risk factors identified. Fall Risk Ambulatory Aid- None/Bed Rest/Nurse Assist (0 pts). Gait- Normal/Bed Rest/Wheelchair (0 pts) Mental Status- Oriented to own ability (0 pts). Total Zhu Fall Scale indicates No Risk (0-24 pts). Assessment: 11:09 General: Appears in no apparent distress. uncomfortable, Behavior is calm, cooperative, jd3 appropriate for age, Reports fatigue for 12-24 hours. Pain: Denies pain. Pain does not radiate. Pain began gradually. Neuro: Level of Consciousness is awake, alert, obeys commands, Oriented to person, place, time, situation. Cardiovascular: Capillary refill < 3 seconds Patient's skin is warm and dry. Rhythm is irregular. Respiratory: Reports shortness of breath on exertion Airway is patent Respiratory effort is even, unlabored, Respiratory pattern is regular, symmetrical, Denies cough. GI: No signs and/or symptoms were reported involving the gastrointestinal system. : No signs and/or symptoms were reported regarding the genitourinary system. EENT: No signs and/or symptoms were reported regarding the EENT system. Derm: Skin is intact, Skin is dry, Skin is normal, Skin temperature is warm. Musculoskeletal: Circulation, motion, and sensation intact. Range of motion: intact in all extremities. 12:15 Reassessment: Patient appears in no apparent distress at this time. No changes from jd3 previously documented assessment. Patient and/or family updated on plan of care and expected duration. Pain level reassessed. Patient is alert, oriented x 3, equal unlabored respirations, skin warm/dry/pink. 13:14 Reassessment: Patient appears in no apparent distress at this time. No changes from rb3 previously documented assessment. 14:17 Reassessment: Patient appears in no apparent distress at this time. Patient and/or rb3 family updated on plan of care and expected duration. Pain level reassessed. Patient is alert, oriented x 3, equal unlabored respirations, skin warm/dry/pink. Patient denies pain at this time. 15:26 Reassessment: Patient appears in no apparent distress at this time. No changes from jd3 previously documented assessment. Patient and/or family updated on plan of care and expected duration. Pain level reassessed. Patient is alert, oriented x 3, equal unlabored respirations, skin warm/dry/pink. charting continued in [facility] Patient denies pain at this time. 16:25 Reassessment: Patient appears in no apparent distress at this time. No changes from rb3 previously documented assessment. 17:22 Reassessment: Patient appears in no apparent distress at this time. Patient and/or rb3 family updated on plan of care and expected duration. Pain level reassessed. Patient is alert, oriented x 3, equal unlabored respirations, skin warm/dry/pink. Pain: Denies pain. 18:20 Reassessment: Gave report to PAULINA Claire. Information from the SBAR was given. All rb3 questions asked and answered. Vital Signs: 10:08 BP 138 / 95; Pulse 85; Resp 24 S; Temp 98.3(O); Pulse Ox 100% on R/A; aa5 11:12 BP 127 / 84; Pulse 80; Resp 21 S; Pulse Ox 99% on R/A; jd3 12:15 BP 109 / 90; Pulse 84; Resp 19 S; Pulse Ox 100% on R/A; jd3 13:30 BP 111 / 86; Pulse 91; Resp 22; Pulse Ox 99% ; rb3 14:30 BP 129 / 98; Pulse 78; Resp 23; Pulse Ox 98% ; rb3 15:27 BP 128 / 89; Pulse 98; Resp 19 S; Pulse Ox 100% on R/A; jd3 16:30 BP 104 / 82; Pulse 86; Resp 20; Pulse Ox 98% ; rb3 17:30 BP 124 / 74; Pulse 88; Resp 19; Pulse Ox 98% ; rb3 18:30 BP 132 / 84; Pulse 92; Resp 17; Pulse Ox 97% ; rb3 ED Course: 09:46 Patient arrived in ED. as 10:08 Arm band placed on Patient placed in an exam room, on a stretcher. aa5 10:10 EKG completed in triage. Results shown to MD. aa5 10:18 Omkar Leroy MD is Attending Physician. gabby 10:21 Triage completed. aa5 10:45 Magdi Wen RN is Primary Nurse. jd3 10:49 Inserted saline lock: 20 gauge in right antecubital area, using aseptic technique. rb3 Blood collected. 11:09 Patient has correct armband on for positive identification. Placed in gown. Bed in low jd3 position. Call light in reach. Side rails up X 1. Adult w/ patient. extension professor on. Pulse ox on. NIBP on. 11:09 Patient maintains SpO2 saturation greater than 95% on room air. jd3 11:23 XRAY Chest (1 view) In Process Unspecified. EDMS 11:38 Magnesium Sent. mh5 11:38 LFT's Sent. mh5 11:38 CBC with Diff Sent. mh5 11:38 Basic Metabolic Panel Sent. mh5 12:31 George Mejia MD is Hospitalizing Provider. gabby 15:26 No provider procedures requiring assistance completed. Patient admitted, IV remains in jd3 place. 18:54 No provider procedures requiring assistance completed. Patient admitted, IV remains in rb3 place. Administered Medications: 11:05 Drug: Pepcid (famotidine) 20 mg Route: IVP; Site: right antecubital; rb3 12:00 Follow up: Response: No adverse reaction jd3 11:05 Drug: Lovenox (enoxaparin) 100 mg Route: Sub-Q; Site: left lower abdomen; rb3 12:00 Follow up: Response: No adverse reaction jd3 11:05 Drug: Lopressor (metoprolol TARTRATE) 50 mg Route: PO; rb3 12:00 Follow up: Response: No adverse reaction jd3 11:05 Drug: Lopressor (metoprolol) 2.5 mg {Note: BP 142/81, P 83.} Route: IVP; Site: right rb3 antecubital; 12:00 Follow up: Response: No adverse reaction jd3 11:33 Drug: Lopressor (metoprolol) 2.5 mg {Note: 113/77 BP and 83 HR.} Route: IVP; Site: jd3 right antecubital; 12:25 Follow up: Response: No adverse reaction jd3 Outcome: 12:32 Decision to Hospitalize by Provider. gabby 15:27 Admitted to ER Hold. Please see [facility] for further documentation. jd3 15:27 Condition: stable 15:27 Instructed on the need for admit. 18:45 Admitted to Med/surg accompanied by tech, via wheelchair, room 230, with chart, Report rb3 called to PAULINA Claire 18:45 Condition: stable 18:45 Instructed on the need for admit. 18:45 Patient left the ED. rb3 Signatures: Dispatcher [employer] EDOmkar Mares MD MD cha Martinez, Amelia as Calderon, Audri RN RN 5 Claudia Perez Magdi Navas RN RN jd3 Estela Contreras RN RN rb3 Corrections: (The following items were deleted from the chart) 10:24 10:14 Arm band placed on Patient placed in an exam room, on a stretcher, aa5 aa5 10:25 10:08 BP 138 / 95; Pulse 85bpm; Resp 24bpm; Spontaneous; Pulse Ox 100% RA; aa5 aa5 11:23 11:05 Lopressor (metoprolol) 2.5 mg IVP in right antecubital rb3 rb3 15:27 15:26 Reassessment: Patient appears in no apparent distress at this time. No changes jd3 from previously documented assessment. Patient and/or family updated on plan of care and expected duration. Pain level reassessed. Patient is alert, oriented x 3, equal unlabored respirations, skin warm/dry/pink. Patient denies pain at this time. jd3 18:57 18:56 Patient left the ED. rb3 rb3
--- NOTE | 2021-04-11 13:09 | P.HP ---
Certification for Inpatient With expected LOS: >2 Midnights Patient will require the following post-hospital care: None Practitioner: I am a practitioner with admitting privileges, knowledge of patient current condition, hospital course, and medical plan of care. Services: Services provided to patient in accordance with Admission requirements found in Title 42 Section 412.3 of the Code of Federal Regulations Patient History Date of Service: 04/11/21 Reason for admission: Chest pain History of Present Illness: 50 year old white male with past medical history of hypertension , hyperlipidemia , atrial fibrillation , systolic congestive heart failure with EF 20% Aug 2019, obesity who presented to the ED complaining of chest pain. He states that the pain began the day before and consisted of a sharp pain that lasted around 30 seconds. The pain was located over his mid chest area. The onset of pain came while the patient was resting. The following morning (of his presentation to the ED) he noticed the pain as he was getting out of bed. Once again it was a sharp preceded by shortness of breath and near syncope. His EKG is noted for atrial fibrillation with RVR, CXR WNL. He received 5 mg metoprolol in ED. Allergies No Known Allergies Allergy (Verified 10/05/17 05:15) Home Medications: Rivaroxaban [Xarelto] 20 mg PO DAILY #30 tablet 06/14/19 carvediloL [Coreg*] 12.5 mg PO BID 6AM 6PM #60 tab 06/14/19 Furosemide [Lasix] 40 mg PO BID #60 tablet 09/08/19 Sotalol HCl [Betapace*] 80 mg PO [id number] #30 tab 09/08/19 Sotalol HCl [Betapace*] 160 mg PO DAILY 6PM #30 tab 09/08/19 lisinopriL [Prinivil*] 5 mg PO DAILY #30 tab 09/08/19 - Past Medical/Surgical History Diabetic: No -: HTN -: Atrial fibrillation -: Tobacco abuse -: CHF, systolic dysfunction -: R. knee sx Psychosocial/ Personal History: Patient is single. - Family History Mother -: Cancer Notes: LNG [place] - non smoker - Social History Alcohol use: No CD- Drugs: No Caffeine use: Yes Review of Systems General: Unremarkable Eyes: Unremarkable ENT: Unremarkable Respiratory: Unremarkable Cardiovascular: Chest Pain Gastrointestinal: Unremarkable Genitourinary: Unremarkable Musculoskeletal: Unremarkable Integumentary: Unremarkable Neurological: Unremarkable Physical Examination - Physical Exam General: Alert, In no apparent distress, Oriented x3 HEENT: Atraumatic, Normocephalic, PERRLA, Sclerae nonicteric Neck: Supple, 2+ carotid pulse no bruit, JVD not distended, Without JVD or thyroid abnormality Respiratory: Clear to auscultation bilaterally Cardiovascular: No edema, Normal pulses, Irregular heart rate/rhythm Gastrointestinal: Normal bowel sounds, No ascites, No tenderness, No masses, No rebound, No guarding Musculoskeletal: No clubbing, No swelling, No contractures, No erythema, No tenderness, No warmth Integumentary: No rashes, No breakdown, No significant lesion, No tenderness/swelling, No erythema, No warmth, No cyanosis Neurological: Normal gait, Normal speech, Normal strength at 5/5 x4 extr - Studies Laboratory Data (last 24 hrs) 04/11/21 10:48: PT 11.1, INR 0.97 04/11/21 10:48: WBC 8.80, Hgb 16.6, Hct 46.4, Plt Count 266 04/11/21 10:48: Sodium 140, Potassium 3.7, BUN 12, Creatinine 1.17, Glucose 117 H, Magnesium 2.0, Total Bilirubin 0.6, AST 26, ALT 37, Alkaline Phosphatase 55, Lipase 94 Assessment and Plan - Plan Assessment: 50 year old white male presents with chest pain and atrial fibrillation with RVR. 1. Chest pain 2. Atrial fibrillation with RVR 3. Acute systolic CHF: 4. Hypertension Plan: 1. Chest pain: Troponin WNL. Continue to monitor. Monitor electrolytes. EKG noted for afib with RVR Cardiology consult placed - awaiting recommendation. CXR unremarkable ASa 81 mg once daily Lipid panel pending. 2. Atrial fibrillation with RVR: Cardiac monitoring Continue BB and home xarelto CHAD_VAS score is 2 Monitor vitals 3. Acute systolic CHF: BNP 330 Repeat echo Low salt diet 4. Hypertension: Continue home meds Continue to monitor. 5. DVT prophylaxis: Home anticoagulation Discharge Plan: Home Plan to discharge in: 48 Hours - Advance Directives Does patient have a Living Will: No Does patient have a Durable POA for Healthcare: No Time Spent Managing Pts Care (In Minutes): 55
[2021-04-11 13:12] LABS: Blood Morphology Comment NOTED (NOT SEEN); Macrocytosis 1+; Platelet Estimate ADEQ; White Blood Cell Scan OK (OK)
[2021-04-11] MEDS ORDERED: ACETAMINOPHEN 500 MG TAB PO PRN (13:55)
[2021-04-11] MEDS: METOPROLOL TARTRATE 5 MG/5 ML INJ IV SCH ×3 (14:00→14:10)
[2021-04-11 15:47] VITALS: BMI 42.3
[2021-04-11 17:16] LABS: Absolute Lymphocytes (CBC) 3.1 K/uL (0.7-4.9); Basophils % 1.3 % (0-1.3); Hematocrit 47.4 % (39.6-49.0); Lymphocytes % 35.2 % (15.3-44.8); MPV 8.3 fL (7.6-11.3); RBC Red Blood Cell Count 4.59 M/uL (4.33-5.43)
[2021-04-11 17:34] LABS: HDL Cholesterol 27 mg/dL (40-60); LDL Cholesterol, Calculated 105 (<130); Troponin I < 0.02 ng/mL (0.0-0.045)
[2021-04-11 17:45] LABS: BUN Blood Urea Nitrogen 13 mg/dL (7-18); Bicarbonate 26 mmol/L (21-32); Creatine Phosphokinase 64 U/L (39-308); Glucose Level 119 mg/dL (74-106); Potassium 3.7 mmol/L (3.5-5.1); Sodium Level 140 mmol/L (136-145)
[2021-04-11 17:50] LABS: CKMB Creatine Kinase MB < 1.0 ng/mL (1.0-3.6)
--- NOTE | 2021-04-11 18:43 | CON ---
Admitted on 04/11/[address] Mejia's service. Reason For Consultation: Chest pain, atrial fibrillation with rapid ventricular response. History Of Present Illness: Mr. Abel is a 50-year-old white male, has known chronic systolic conge stive heart failure with an ejection fraction of 20% in 2020. Has a history of paroxysmal atrial fib rillation, chronic renal disease, and hypertension. Has been compliant with medication and has actua lly been feeling well, but recently started having palpitations and shortness of breath and came into the emergency room, was found to have rapid atrial fibrillation, slightly hypotensive. He denied an y chest pain. He denied any nausea, vomiting, diaphoresis. Denied PND, orthopnea. Had some pedal e rupinder. Had palpitations, but no syncope. Denied any fever or chills. Allergies: NONE. Review of Systems: Negative. Social History: Negative. Family History: Noncontributory. Medications: At home include Coreg, sotalol 80 b.i.d., lisinopril and Lasix. Physical Examination: Vital Signs: He was in atrial fibrillation at about a rate of 90. His pressure was 98/60. Afebrile . General: No acute distress. HEENT: Negative. Neck: Supple. No bruit. Chest: Clear to auscultation and percussion. Cardiac: Revealed atrial fibrillation. Abdomen: Obese, but benign. Extremities: Revealed no clubbing, cyanosis, or edema. Diagnostic Data: EKG showed atrial fibrillation. Chest x-ray was negative. BNP was 330. Impression And Plan: Recurrent atrial fibrillation. I will double the sotalol to 160 b.i.d. I will consider cardioversion or IV amiodarone if he does not convert depending what his blood pressure spicer s. Another echocardiogram may be reasonable. We should continue his Coreg, lisinopril and Lasix unl ess his lesser blood pressure goes much lower than it is right now. Mr. Abel really needs to have a heart catheterization done. He is a candidate for an AICD and maybe even an ablation and possibly a biventricular pacemaker. I suggested close followup in that regard and he understands. I will con dina to follow him while he is on the hospital. SEUN/AUDI Voice ID: [id number] Report ID: [id number]
[2021-04-11] MEDS: SOTALOL HCL 80 MG TAB PO SCH (21:10)
[2021-04-12 02:33] VITALS: O2SAT 98
[2021-04-12] MEDS: SOTALOL HCL 80 MG TAB PO SCH (05:31)
--- NOTE | 2021-04-12 06:33 | P.PN ---
Subjective Date of Service: 04/12/21 Chief Complaint: Chest pain Physical Examination - Vital Signs Temperature: 97.3 F Blood Pressure: 108/63 Pulse: 77 Respirations: 20 Pulse Ox (%): 99 - Studies Laboratory Data (last 24 hrs) 04/11/21 10:48: PT 11.1, INR 0.97 04/11/21 10:48: WBC 8.80, Hgb 16.6, Hct 46.4, Plt Count 266 04/11/21 10:48: Sodium 140, Potassium 3.7, BUN 12, Creatinine 1.17, Glucose 117 H, Magnesium 2.0, Total Bilirubin 0.6, AST 26, ALT 37, Alkaline Phosphatase 55, Lipase 94
[2021-04-12] MEDS ORDERED: carvediloL 12.5 MG TAB PO SCH (07:00)
--- NOTE | 2021-04-12 07:43 | P.PN ---
Subjective Date of Service: 04/12/21 Chief Complaint: Chest pain Subjective: No new changes, No C/O voiced, Doing well Review of Systems General: Unremarkable Eyes: Unremarkable ENT: Unremarkable Respiratory: Unremarkable Cardiovascular: Unremarkable Gastrointestinal: Unremarkable Musculoskeletal: Unremarkable Integumentary: Unremarkable Neurological: Unremarkable Physical Examination - Vital Signs Temperature: 97.3 F Blood Pressure: 108/63 Pulse: 77 Respirations: 20 Pulse Ox (%): 99 - Physical Exam General: Alert, In no apparent distress, Oriented x3 HEENT: Atraumatic, Normocephalic, PERRLA, Mucous membr. moist/pink, Sclerae nonicteric Neck: Supple, 2+ carotid pulse no bruit, Without JVD or thyroid abnormality Respiratory: Clear to auscultation bilaterally Cardiovascular: No edema, Normal pulses, Regular rate/rhythm Gastrointestinal: Normal bowel sounds, No ascites, No masses, No rebound, No guarding Musculoskeletal: No clubbing, No swelling, No contractures, No erythema, No tenderness Integumentary: No rashes, No breakdown, No significant lesion, No tendernes s/swelling Neurological: Normal gait, Normal speech, Normal strength at 5/5 x4 extr - Studies Laboratory Data (last 24 hrs) 04/11/21 10:48: PT 11.1, INR 0.97 04/11/21 10:48: WBC 8.80, Hgb 16.6, Hct 46.4, Plt Count 266 04/11/21 10:48: Sodium 140, Potassium 3.7, BUN 12, Creatinine 1.17, Glucose 117 H, Magnesium 2.0, Total Bilirubin 0.6, AST 26, ALT 37, Alkaline Phosphatase 55, Lipase 94 Assessment And Plan - Plan Assessment: 50 year old white male presents with chest pain and atrial fibrillation with RVR. 1. Chest pain 2. Atrial fibrillation with RVR 3. Acute systolic CHF: 4. Hypertension Plan: 1. Chest pain: Troponin WNL. Continue to monitor. Monitor electrolytes. EKG noted for afib with RVR CXR unremarkable ASA 81 mg once daily Lipid panel noted for hypertriglyceridemia 2. Atrial fibrillation with RVR: Cardiology recommended to increase soltalol 160 mg bid. May require cardioversion or IV amiodarone if afib persist depending on blood pressure. He is strongly advised to get cardiac cath outpatient. He is also a candidate for AICD or ablation and possibly biventricular pacemaker. Echo pending Continue coreg , lisinopril and lasix CHAD_VAS score is 2 Continue to monitor 3. Acute systolic CHF: BNP 330 Echo pending Low salt diet 4. Hypertension: Continue home meds Continue to monitor. 5. DVT prophylaxis: Home anticoagulation Discharge Plan: Home Plan to discharge in: 48 Hours
[2021-04-12 08:46] LABS: Hematocrit 44.2 % (39.6-49.0); MPV 7.9 fL (7.6-11.3); RBC Red Blood Cell Count 4.38 M/uL (4.33-5.43)
[2021-04-12 08:58] LABS: Potassium 4.1 mmol/L (3.5-5.1)
[2021-04-12] MEDS ORDERED: lisinopriL 10 MG TAB PO SCH (09:00)
[2021-04-12] MEDS ORDERED: FUROSEMIDE 40 MG TABLET PO SCH (09:00)
[2021-04-12] MEDS ORDERED: ASPIRIN EC 81 MG TAB PO SCH (09:00)
--- NOTE | 2021-04-12 11:17 | PN ---
The patient is here for congestive heart failure, has known ejection fraction about 20%. He remains in atrial fibrillation at rate of 80. He really should be anticoagulated, although he said he could not afford it. He should be at least on aspirin. He is on appropriate medical therapy as far as FAVIOLA inhibitor, beta-maria ines, and Lasix. He has improved. He can go home. I made a suggestion to Mr. tSacie luna to go to [facility] at his convenience because I think he is a candidate for a catheterization, biven tricular pacemaker ablation and probably a defibrillator. This is unavailable in this hospital. SEUN/AUDI Voice ID: [id number] Report ID: [id number]
[2021-04-12 14:43] VITALS: BP 115/77; TEMP 97.4
--- NOTE | 2021-04-13 17:02 | EKG ---
Test Date: 2021-04-11 Test Time: 10:10:37 Hospice Entrance Attendant: MALENA MEASUREMENT RESULTS: Intervals: Rate: 116 VT: QRSD: 86 QT: 342 QTc: 475 [place]: P: VT: QRS: 65 T: 44 INTERPRETIVE STATEMENTS: Atrial fibrillation with rapid ventricular response Abnormal ECG Compared to ECG 09/06/2019 16:15:02 T-wave abnormality no longer present Electronically Signed On 04-13-21 16:57:13 CDT by Malik Josue
--- NOTE | 2021-04-13 17:14 | P.DS ---
Admission Date: 04/11/21 Discharge Date: 04/13/21 Disposition: ROUTINE DISCHARGE Discharge Condition: GOOD Reason for Admission: Chest pain Consultations: Cardiology - Dr. Josue Procedures: CXR (04/11): No acute abnormalities displayed. The heart is mildly enlarged. Problem list Chest pain, shortness of breath, secondary to atrial fibrillation with RVR Chronic atrial fibrillation, not on anticoagulation (due to cost) Systolic congestive heart failure (last EF: 20%) Hypertension Left anterior cervical lymphadenopathy Brief History of Present Illness: 50 year old white male with past medical history of hypertension , hyperlipidemia , atrial fibrillation , systolic congestive heart failure with EF 20% Aug 2019, obesity who presented to the ED complaining of chest pain. He states that the pain began the day before and consisted of a sharp pain that lasted around 30 seconds. The pain was located over his mid chest area. The onset of pain came while the patient was resting. The following morning (of his presentation to the ED) he noticed the pain as he was getting out of bed. Once again it was a sharp preceded by shortness of breath and near syncope. His EKG is noted for atrial fibrillation with RVR, CXR WNL. Received 5 mg metoprolol in ED. Hospital Course: Patient had improvement in his heart rates in the ED with IV Lopressor. Cardiology was consulted and agreed with increasing the sotalol from 80 mg twice daily to 160 mg twice daily. Patient was monitored and continued to have rate control. The following morning patient was feeling much better, ambulating with less dyspnea. Cardiology recommended no further evaluation or treatment. Patient is deemed stable for discharge home. Long discussion was had with patient regarding anticoagulation, he stated while Xarelto, Eliquis, Coumadin he was not going to be able to afford the medication/testing. He stated he takes a daily aspirin. He was discharged home with a prescription for higher dose of sotalol, otherwise to continue his home medications as previously prescribed. Patient was noted to have a large left anterior cervical mass/lymphadenopathy. He stated this has been present for about 4 weeks, and is being worked up by his PCP. He has already had an ultrasound which showed enlarged/involving the lymph node. His PCP is working on getting him scheduled for a CT scan. Patient to continue to follow-up with PCP. Possibly related to the upper respiratory infection he had 2 weeks prior to the development of this swelling. Patient also reported some poor dentition, but no recent pain or redness in oral cavity. Recommended f/u with dentist as well if any further teeth issues. Vital Signs/Physical Exam: Temp Pulse Resp BP Pulse Ox 97.4 F 77 18 115/77 97 04/12/21 12:00 04/12/21 12:00 04/12/21 12:00 04/12/21 12:00 04/12/21 12:00 General: Alert, In no apparent distress, Oriented x3 HEENT: Sclerae nonicteric Neck: Other (Large left anterior cervical lymphadenopathy/mass palpated. No overlying skin changes) Respiratory: Clear to auscultation bilaterally, Normal air movement Cardiovascular: No edema, Irregular heart rate/rhythm Gastrointestinal: Soft and benign, Non-distended, No tenderness Musculoskeletal: No tenderness Integumentary: No rashes Neurological: Normal strength at 5/5 x4 extr Laboratory Data at Discharge: WBC 7.60 K/uL (4.3-10.9) D 04/12/21 08:07 Hgb 15.4 g/dL (13.6-17.9) 04/12/21 08:07 Hct 44.2 % (39.6-49.0) 04/12/21 08:07 Plt Count 227 K/uL (152-406) 04/12/21 08:07 PT 11.1 SECONDS (9.5-12.5) 04/11/21 10:48 INR 0.97 04/11/21 10:48 APTT 30.3 SECONDS (24.3-36.9) 04/11/21 16:53 Sodium 140 mmol/L (136-145) 04/12/21 08:07 Potassium 4.1 mmol/L (3.5-5.1) 04/12/21 08:07 BUN 14 mg/dL (7-18) 04/12/21 08:07 Creatinine 0.97 mg/dL (0.55-1.3) 04/12/21 08:07 Glucose 95 mg/dL (74-106) 04/12/21 08:07 Magnesium 2.0 mg/dL (1.8-2.4) 04/11/21 10:48 Total Bilirubin 0.6 mg/dL (0.2-1.0) 04/11/21 10:48 AST 26 U/L (15-37) 04/11/21 10:48 ALT 37 U/L (12-78) 04/11/21 10:48 Alkaline Phosphatase 55 U/L (45-117) 04/11/21 10:48 Troponin I < 0.02 ng/mL (0.0-0.045) 04/11/21 16:53 Triglycerides 354 mg/dL (<150) H 04/11/21 16:53 Cholesterol 203 mg/dL (<200) H 04/11/21 16:53 HDL Cholesterol 27 mg/dL (40-60) L 04/11/21 16:53 Cholesterol/HDL Ratio 7.52 04/11/21 16:53 Lipase 94 U/L (73-393) 04/11/21 10:48 Home Medications: carvediloL [Coreg*] 12.5 mg PO BID 6AM 6PM #60 tab 06/14/19 Furosemide [Lasix] 40 mg PO BID #60 tablet 09/08/19 lisinopriL [Prinivil*] 5 mg PO DAILY #30 tab 09/08/19 Sotalol HCl [Sotalol] 160 mg PO BID 30 Days #60 tablet 04/12/21 New Medications: Sotalol HCl [Sotalol] 160 mg PO BID 30 Days #60 tablet Diet: AHA Activity: Ad mohit Followup: Malik Josue MD [ACTIVE - CAN ADMIT] - JAMIE AYALA [Primary Care Provider] - Time spent managing pt's care (in minutes): 45
== END 2021-04-12 13:00 | disposition home or self-care (01) | DRG 308 ==
LOC: ER 09:44 → ERHOLD 13:56 → 2ND 18:22
PROVIDERS: ADMIT Hospitalist; ATTEND Hospitalist
DX: I48.20 Chronic atrial fibrillation, unspecified (principal); I50.23 Acute on chronic systolic (congestive) heart failure; Z68.41 Body mass index [BMI] 40.0-44.9, adult; I11.0 Hypertensive heart disease with heart failure; R59.0 Localized enlarged lymph nodes; E78.5 Hyperlipidemia, unspecified; E66.9 Obesity, unspecified; Z20.822 Contact with and (suspected) exposure to COVID-19
CPT/HCPCS: 36415; 71045; 80048; 80061; 80076; 82550; 82553; 83690; 83735; 83880; 84443; 84484; 85025; 85027; 85379; 85610; 85730; 93005; 94760; 96372; 96374; 96375; 97161; 99285; J1650; U0003

== ENCOUNTER 2021-10-12 12:52 | Inpatient (IN) | payer OTHER, SELFPAY ==
[2021-10-12] MEDS ORDERED: METOPROLOL TARTRATE 5 MG/5 ML INJ IV ONE ×3 (13:22→15:46)
[2021-10-12 13:39] LABS: Absolute Lymphocytes (CBC) 1.6 K/uL (0.7-4.9); Hematocrit 48.1 % (39.6-49.0); Lymphocytes % 24.5 % (15.3-44.8); MPV 8.3 fL (7.6-11.3); RBC Red Blood Cell Count 4.64 M/uL (4.33-5.43)
[2021-10-12 13:41] LABS: Protime INR 1.07
[2021-10-12 13:49] LABS: Albumin 3.8 g/dL (3.4-5.0); Magnesium 2.1 mg/dL (1.8-2.4)
--- NOTE | 2021-10-12 14:22 | RAD REPORT ---
EXAM DESCRIPTION: RAD - Chest Single View - 10/12/2021 2:06 pm CLINICAL HISTORY: CHEST PAIN Chest pain. COMPARISON: Chest Single View dated 04/11/2021; Chest Single View dated 09/05/2019; Chest Single View d ated 06/14/2019; Chest Single View dated 04/24/2019 FINDINGS: Portable technique limits examination quality. Moderate bilateral pulmonary opacities are present which may represent pulmonary edema or pneumonia. The heart is mildly enlarged in size. No displaced fractures. IMPRESSION: Moderate CHF.
[2021-10-12 15:13] LABS: Bilirubin Direct 0.2 mg/dL (0-0.2); Bilirubin Total 0.7 mg/dL (0.2-1.0); Protein, Total 7.7 g/dL (6.4-8.2); Troponin High Sensitivity 45.9 pg/mL (<58.9)
--- NOTE | 2021-10-12 15:16 | RAD REPORT ---
EXAM DESCRIPTION: CT - Soft Tissue Neck W/Contr CLINICAL HISTORY: neck swelling COMPARISON: No comparisons TECHNIQUE All CT scans are performed using dose optimization technique as appropriate and may includ e automated exposure control or mA/KV adjustment according to patient size. FINDINGS: The examination is very limited due to lack of contrast. There is an irregular mass presen t along the left neck anterior to the sternocleidomastoid muscle involving the left aspect of the lar ynx. The mass measures approximately 7.5 x 5.0 cm. The mass appears to surround the left distal commo n carotid, internal carotid and external carotid arteries. The mass abuts the left aspect of the hyoi d bone which is slightly sclerotic. Moderate mass effect to the right is seen on the pharynx and debby nx caused by this. 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 The soft tissues of the left face and jaw are edematous with small enlarged lymph nodes present. Smal l pleural effusions bilaterally. 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 The mass encircles the left distal common carotid artery, proximal internal and external carotid dina nancy. There is sclerosis of the left aspect of the hyoid bone which abuts the mass as well.
--- NOTE | 2021-10-12 15:55 | EDPHYS ---
Physician Documentation [facility] Name: Iván Abel Age: 50 yrs Sex: Male : 1970 Arrival Date: 10/12/2021 Time: 12:53 Bed 23 Private MD: ED Physician Dania Hoover HPI: 10/12 13:29 This 50 yrs old Male presents to ER via Ambulatory with complaints of Chest Pain, sp3 Breathing Difficulty. 13:29 50-year-old male with a history of atrial fibrillation, CHF, hypertension who presents sp3 to the ED for chief complaint left-sided neck swelling and associated chest pain. Patient is being seen at the [facility] as his PCP and he first noticed a lymph node approximately 6 months ago that was swollen at which point an ultrasound was performed for which he does not know the exact results but no further intervention was performed subsequent to that. That same lymph node over the last 7 to 10 days has significantly increased in size per patient and is giving him neck pain. It is also causing him to cough and when he coughs he develops chest pain. Chest pain is radiating from his neck down to his chest and is not primarily in his chest. It is described as sharp and radiating and not dull or substernal. He denies shortness of breath, back pain, headache, fever, unplanned weight loss, night sweats, or any other findings at this time.. Historical: - Allergies: 13:00 No Known Allergies; ab2 - Home Meds: 13:00 amlodipine 10 mg tab 1 tab once daily [Active]; carvedilol 12.5 mg Oral tab 1 tab 2 ab2 times per day [Active]; lisinopril 5 mg Oral tab once daily [Active]; sotalol 80 mg Oral tab 1 tab 2 times per day [Active]; furosemide 40 mg Oral tab 2 times per day [Active]; - PMHx: 13:00 Atrial Fib; CHF; Hypertension; ab2 - PSHx: 13:00 None; ab2 - Immunization history:: Adult Immunizations up to date, Client reports receiving the 2nd dose of the Covid vaccine, Flu vaccine is not up to date. - Social history:: Smoking status: Patient reports the use of cigarette tobacco products, smokes one-half pack cigarettes per day. ROS: 13:32 Constitutional: Negative for fever, chills, and weight loss, Eyes: Negative for injury, sp3 pain, redness, and discharge, ENT: Negative for injury, pain, and discharge, Respiratory: Negative for shortness of breath, cough, wheezing, and pleuritic chest pain, Abdomen/GI: Negative for abdominal pain, nausea, vomiting, diarrhea, and constipation, Back: Negative for injury and pain, MS/Extremity: Negative for injury and deformity, Skin: Negative for injury, rash, and discoloration, Neuro: Negative for headache, weakness, numbness, tingling, and seizure, Psych: Negative for depression, anxiety, suicide ideation, homicidal ideation, and hallucinations, Allergy/Immunology: Negative for hives, rash, and allergies, Hematologic/Lymphatic: Negative for swollen nodes, abnormal bleeding, and unusual bruising. 13:32 All other systems are negative. Exam: 13:33 Constitutional: This is a well developed, well nourished patient who is awake, alert, sp3 and in no acute distress. Head/Face: Normocephalic, atraumatic. Eyes: Pupils equal round and reactive to light, extra-ocular motions intact. Lids and lashes normal. Conjunctiva and sclera are non-icteric and not injected. Cornea within normal limits. Periorbital areas with no swelling, redness, or edema. ENT: Nares patent. No nasal discharge, no septal abnormalities noted. External auditory canals are clear. Oropharynx with no redness, swelling, or masses, exudates, or evidence of obstruction, uvula midline. Mucous membranes moist. Chest/axilla: Normal chest wall appearance and motion. Nontender with no deformity. No lesions are appreciated. Respiratory: Lungs have equal breath sounds bilaterally, clear to auscultation and percussion. No rales, rhonchi or wheezes noted. No increased work of breathing, no retractions or nasal flaring. Abdomen/GI: Soft, non-tender, with normal bowel sounds. No distension or tympany. No guarding or rebound. No evidence of tenderness throughout. Back: No spinal tenderness. No costovertebral tenderness. Full range of motion. Skin: Warm, dry with normal turgor. Normal color with no rashes, no lesions, and no evidence of cellulitis. MS/ Extremity: Pulses equal, no cyanosis. Neurovascular intact. Full, normal range of motion. Neuro: Awake and alert, GCS 15, oriented to person, place, time, and situation. Cranial nerves II-XII grossly intact. Motor strength 5/5 in all extremities. Sensory grossly intact. Cerebellar exam normal. Normal gait. 13:33 Neck: Large 4 cm x 2 cm swelling in the left anterior neck. Masses not appear to be part of the thyroid. Carotid pulses palpable.. 13:33 Cardiovascular: Patient is in RVR still in A. fib. Otherwise normal cardiac exam.. 13:33 ECG was reviewed by the Attending Physician. EKG demonstrates atrial fibrillation with RVR at 162 bpm with absent MA interval and remainder of intervals normal, normal axis, nonspecific diffuse ST/T changes with possible underlying atrial flutter without evidence of ischemia. Vital Signs: 12:56 BP 153 / 111; Pulse 82; Resp 20; Temp 96.6(TE); Pulse Ox 100% on R/A; Weight 140.61 kg; ab2 Height 5 ft. 63 in. (312.42 cm); Pain 7/10; 13:19 BP 143 / 117; Pulse 152; Resp 15; Pulse Ox 97% ; Pain 8/10; eo2 13:30 BP 129 / 107; Pulse 122; Resp 17; Pulse Ox 98% ; eo2 14:00 BP 125 / 103; Pulse 117; Resp 17; Pulse Ox 98% ; eo2 14:15 BP 107 / 84; Pulse 128; Resp 17; Pulse Ox 98% ; Pain 8/10; eo2 14:30 BP 121 / 97; Pulse 112; Resp 15; Pulse Ox 96% ; eo2 14:45 BP 109 / 95; Pulse 106; Resp 17; Pulse Ox 98% ; eo2 15:55 BP 113 / 98; Pulse 112; Resp 16; Pulse Ox 95% ; eo2 16:06 BP 103 / 92; Pulse 111; Resp 22; Pulse Ox 97% ; Pain 8/10; eo2 16:30 BP 121 / 105; Pulse 113; Resp 18; Pulse Ox 97% ; Pain 4/10; eo2 16:45 BP 137 / 107; Pulse 134; Resp 15; Pulse Ox 97% ; eo2 17:30 BP 116 / 95; Pulse 107; Resp 20; Pulse Ox 94% ; eo2 18:30 BP 96 / 77; Pulse 111; Resp 17; Pulse Ox 95% ; eo2 21:33 BP 120 / 57; Pulse 113; Resp 20; Pulse Ox 98% on R/A; kd3 12:56 Body Mass Index 14.41 (140.61 kg, 312.42 cm) ab2 MDM: 13:24 Patient medically screened. sp3 13:35 Data reviewed: vital signs, nurses notes. ED course: 50-year-old male with left neck sp3 swelling/mass and A. fib RVR with associated chest pain. Will work patient up with laboratory values, chest x-ray, CT scan of the neck with IV contrast, and AV esa blocking agents starting with Lopressor IV 5 mg. Patient will likely need admission if not rate controlled. Remainder of work-up is pending ultimate disposition will be ascertained once data acquisition is complete.. 15:43 ED course: Patient received 3 doses of Lopressor and is now rate controlled in the sp3 100-110 range. Patient also has mild CHF on chest x-ray. Will administer Lasix for this. CT scan of the neck demonstrates large mass that is likely malignant in nature. Will defer to inpatient team for possible biopsy and/or outpatient referral for work-up. Patient will not be admitted for A. fib RVR, CHF, and neck mass.. 10/12 13:16 Order name: Basic Metabolic Panel; Complete Time: 15:41 ss 10/12 13:16 Order name: CBC with Diff; Complete Time: 15:41 ss 10/12 13:16 Order name: LFT's; Complete Time: 15:41 ss 10/12 13:16 Order name: Magnesium; Complete Time: 15:41 ss 10/12 13:16 Order name: NT PRO-BNP; Complete Time: 15:41 ss 10/12 13:16 Order name: PT-INR; Complete Time: 15:41 ss 10/12 13:16 Order name: Troponin HS; Complete Time: 15:41 ss 10/12 16:32 Order name: COVID-19 SARS RT PCR (Document "Date of Onset" if Symptomatic); Complete ss Time: 17:51 10/12 17:34 Order name: Comprehensive Metabolic Panel EDAK 10/12 17:34 Order name: Comprehensive Metabolic Panel EDAK 10/12 17:34 Order name: Magnesium EDMS 10/12 17:34 Order name: Magnesium EDMS 10/12 17:34 Order name: T4 Free EDMS 10/12 17:34 Order name: T4 Free EDMS 10/12 13:16 Order name: XRAY Chest (1 view); Complete Time: 15:41 ss 10/12 13:16 Order name: CT Soft Tissue Neck W/contr; Complete Time: 15:41 ss 10/12 17:34 Order name: Thyroid Stimulating Hormone EDMS 10/12 17:34 Order name: Thyroid Stimulating Hormone EDMS 10/12 17:34 Order name: CBC with Automated Diff EDMS 10/12 17:34 Order name: CBC with Automated Diff EDMS 10/13 13:29 Order name: Basic Metabolic Panel EDMS 10/13 13:37 Order name: Troponin High Sensitivity EDMS 10/13 13:41 Order name: Lactate EDMS 10/13 16:26 Order name: Lactate Sepsis 2 HR Follow-up EDMS 10/12 13:16 Order name: EKG; Complete Time: 13:16 ss 10/12 13:16 Order name: Cardiac monitoring; Complete Time: 13:20 ss 10/12 13:16 Order name: EKG - Nurse/Tech; Complete Time: 13:20 ss 10/12 13:16 Order name: IV Saline Lock; Complete Time: 13:32 ss 10/12 13:16 Order name: Labs collected and sent; Complete Time: 13:32 ss 10/12 13:16 Order name: O2 Per Protocol; Complete Time: 13:32 ss 10/12 13:16 Order name: O2 Sat Monitoring; Complete Time: 13:32 ss 10/12 17:33 Order name: CONS Physician Consult EDMS 10/12 17:34 Order name: Regular EDMS Administered Medications: 13:26 Drug: Metoprolol 5 mg Route: IVP; Site: right antecubital; eo2 14:21 Follow up: Response: No adverse reaction eo2 14:17 Drug: Metoprolol 5 mg Route: IVP; Site: right antecubital; eo2 15:15 Follow up: Response: No adverse reaction eo2 16:12 Drug: Potassium Chloride 40 mEq Route: PO; eo2 17:12 Follow up: Response: No adverse reaction eo2 16:14 Drug: Zofran (Ondansetron) 4 mg Route: IVP; Site: right antecubital; eo2 16:55 Follow up: Response: No adverse reaction eo2 16:16 Drug: Dilaudid (HYDROmorphone) 1 mg Route: IVP; Site: right antecubital; eo2 16:55 Follow up: Response: No adverse reaction; Pain is decreased eo2 16:55 Drug: Lopressor (metoprolol) 5 mg Route: IVP; Site: right antecubital; eo2 17:55 Follow up: Response: No adverse reaction eo2 16:55 Drug: Lasix (furosemide) 40 mg Route: IVP; Site: right antecubital; eo2 17:55 Follow up: Response: No adverse reaction eo2 Disposition Summary: 10/12/21 15:54 Hospitalization Ordered Hospitalization Status: Inpatient Admission sp3 Provider: George Mejia sp3 Condition: Stable sp3 Problem: new sp3 Symptoms: have worsened sp3 Bed/Room Type: Standard sp3 Location: Telemetry/MedSurg (Inpatient)(10/13/21 21:26) cg Room Assignment: [facility](10/13/21 21:26) cg Diagnosis - A. fib RVR, CHF exacerbation, neck mass sp3 Forms: - Medication Reconciliation Form sp3 - SBAR form sp3 Signatures: Dispatcher [employer] EDMS Heidi Hollingsworth Shelby, RN RN ss Brigida Vega RN RN cg Dania Hoover MD MD sp3 Dee Galindo RN RN eo2 Derek Pierre ab2 Corrections: (The following items were deleted from the chart) 13:01 13:00 Home Meds: Xarelto 20 mg Oral tab 1 tab once daily; ab2 ab2 20:45 15:54 Telemetry/MedSurg (Inpatient) sp3 cg 20:45 15:54 sp3 cg 20:46 20:45 cg cg 10/13 11:24 07 20:45 [facility] ER HOLD cg bd 10/13 11:24 07 20:46 ERHOLD- cg bd 10/13 12:37 11:24 Telemetry/MedSurg (Inpatient) bd ss 12:37 11:24 219 bd ss 21:26 12:37 [facility] ER HOLD ss cg 21:26 12:37 ERHOLD- ss cg
--- NOTE | 2021-10-12 15:55 | ER ---
Nurse's Notes [facility] Name: Iván Abel Age: 50 yrs Sex: Male : 1970 Arrival Date: 10/12/2021 Time: 12:53 Bed 23 Private MD: Diagnosis: A. fib RVR, CHF exacerbation, neck mass Presentation: 10/12 12:56 Chief complaint: Patient states: "I have AFib that is pretty much controlled. I have ab2 this lump on the left side of my neck that makes me cough and when I cough it hurts my chest and is hard to catch my breath. I don't know if this has anything to do with my heart, so I thought I better get it checked out.". Coronavirus screen: Vaccine status: Patient reports receiving the 2nd dose of the covid vaccine. Client denies travel out of the [place] in the last 14 days. At this time, the client does not indicate any symptoms associated with coronavirus-19. Ebola Screen: Patient negative for fever greater than or equal to 101.5 degrees Fahrenheit, and additional compatible Ebola Virus Disease symptoms Patient denies exposure to infectious person. Patient denies travel to an Ebola-affected area in the 21 days before illness onset. No symptoms or risks identified at this time. Initial Sepsis Screen: Does the patient meet any 2 criteria? No. Patient's initial sepsis screen is negative. Does the patient have a suspected source of infection? No. Patient's initial sepsis screen is negative. Risk Assessment: Do you want to hurt yourself or someone else? Patient reports no desire to harm self or others. Onset of symptoms is unknown. 12:56 Method Of Arrival: Ambulatory ab2 12:56 Acuity: SILAS 3 ab2 Triage Assessment: 13:02 General: Appears in no apparent distress. uncomfortable, Behavior is calm, cooperative, ab2 appropriate for age. Pain:. Cardiovascular: Reports shortness of breath, Chest pain is described as vague, Pt states its not a pain but is having chest pressure. Respiratory: Airway is patent Respiratory effort is even, unlabored, Respiratory pattern is regular, symmetrical. 13:03 Pain: Complains of pain in left posterior aspect of neck, left lateral aspect of neck ab2 and left anterior aspect of neck. Historical: - Allergies: 13:00 No Known Allergies; ab2 - Home Meds: 13:00 amlodipine 10 mg tab 1 tab once daily [Active]; carvedilol 12.5 mg Oral tab 1 tab 2 ab2 times per day [Active]; lisinopril 5 mg Oral tab once daily [Active]; sotalol 80 mg Oral tab 1 tab 2 times per day [Active]; furosemide 40 mg Oral tab 2 times per day [Active]; - PMHx: 13:00 Atrial Fib; CHF; Hypertension; ab2 - PSHx: 13:00 None; ab2 - Immunization history:: Adult Immunizations up to date, Client reports receiving the 2nd dose of the Covid vaccine, Flu vaccine is not up to date. - Social history:: Smoking status: Patient reports the use of cigarette tobacco products, smokes one-half pack cigarettes per day. Screenin:30 Abuse screen: Denies threats or abuse. Denies injuries from another. Nutritional eo2 screening: No deficits noted. Tuberculosis screening: No symptoms or risk factors identified. Fall Risk None identified. Assessment: 13:33 General: Appears in no apparent distress. comfortable, diaphoretic. Behavior is calm, eo2 cooperative. Pain: Complains of pain in neck and left anterior aspect of neck and left lateral aspect of neck and left posterior aspect of neck Pain does not radiate. Pain began gradually. Neuro: Level of Consciousness is awake, alert, obeys commands, Oriented to person, place, time, situation, Reports left sided neck pain/ swelling for 6-8 months worsened in last week, associated with cough "passed out twice from coughing" pain leads to CP and SOB. Cardiovascular: Reports chest pain, diaphoresis, shortness of breath, Capillary refill < 3 seconds Rhythm is atrial fibrillation with rapid ventricular response. Respiratory: Reports shortness of breath cough that is Airway is patent Trachea midline Respiratory effort is even, unlabored, Respiratory pattern is regular, symmetrical, Breath sounds are clear bilaterally. GI: Abdomen is round Bowel sounds present X 4 quads. : No deficits noted. No signs and/or symptoms were reported regarding the genitourinary system. 16:57 Reassessment: Dr. Mejia at bedside to speak with pt. eo2 Vital Signs: 12:56 BP 153 / 111; Pulse 82; Resp 20; Temp 96.6(TE); Pulse Ox 100% on R/A; Weight 140.61 kg; ab2 Height 5 ft. 63 in. (312.42 cm); Pain 7/10; 13:19 BP 143 / 117; Pulse 152; Resp 15; Pulse Ox 97% ; Pain 8/10; eo2 13:30 BP 129 / 107; Pulse 122; Resp 17; Pulse Ox 98% ; eo2 14:00 BP 125 / 103; Pulse 117; Resp 17; Pulse Ox 98% ; eo2 14:15 BP 107 / 84; Pulse 128; Resp 17; Pulse Ox 98% ; Pain 8/10; eo2 14:30 BP 121 / 97; Pulse 112; Resp 15; Pulse Ox 96% ; eo2 14:45 BP 109 / 95; Pulse 106; Resp 17; Pulse Ox 98% ; eo2 15:55 BP 113 / 98; Pulse 112; Resp 16; Pulse Ox 95% ; eo2 16:06 BP 103 / 92; Pulse 111; Resp 22; Pulse Ox 97% ; Pain 8/10; eo2 16:30 BP 121 / 105; Pulse 113; Resp 18; Pulse Ox 97% ; Pain 4/10; eo2 16:45 BP 137 / 107; Pulse 134; Resp 15; Pulse Ox 97% ; eo2 17:30 BP 116 / 95; Pulse 107; Resp 20; Pulse Ox 94% ; eo2 18:30 BP 96 / 77; Pulse 111; Resp 17; Pulse Ox 95% ; eo2 21:33 BP 120 / 57; Pulse 113; Resp 20; Pulse Ox 98% on R/A; kd3 12:56 Body Mass Index 14.41 (140.61 kg, 312.42 cm) ab2 ED Course: 12:53 Patient arrived in ED. ds1 13:00 Triage completed. ab2 13:03 Arm band placed on left wrist. ab2 13:04 Dania Hoover MD is Attending Physician. sp3 13:16 Dee Galindo, PAULINA is Primary Nurse. eo2 13:19 EKG done, by ED staff, reviewed by Dania Hoover MD. mb7 13:23 Inserted saline lock: 18 gauge in right antecubital area, using aseptic technique. eo2 Blood collected. Patient maintains SpO2 saturation greater than 95% on room air. 13:30 Patient has correct armband on for positive identification. skiing teacher on. Pulse eo2 ox on. NIBP on. 13:30 No provider procedures requiring assistance completed. eo2 14:06 XRAY Chest (1 view) In Process Unspecified. EDMS 15:00 CT Soft Tissue Neck W/contr In Process Unspecified. EDMS 15:53 Dania Hoover MD is Hospitalizing Provider. sp3 15:53 George Mejia MD is Hospitalizing Provider. sp3 19:06 Report given to Julienne GALLARDO. eo2 21:34 Patient admitted, IV remains in place. kd3 Administered Medications: 13:26 Drug: Metoprolol 5 mg Route: IVP; Site: right antecubital; eo2 14:21 Follow up: Response: No adverse reaction eo2 14:17 Drug: Metoprolol 5 mg Route: IVP; Site: right antecubital; eo2 15:15 Follow up: Response: No adverse reaction eo2 16:12 Drug: Potassium Chloride 40 mEq Route: PO; eo2 17:12 Follow up: Response: No adverse reaction eo2 16:14 Drug: Zofran (Ondansetron) 4 mg Route: IVP; Site: right antecubital; eo2 16:55 Follow up: Response: No adverse reaction eo2 16:16 Drug: Dilaudid (HYDROmorphone) 1 mg Route: IVP; Site: right antecubital; eo2 16:55 Follow up: Response: No adverse reaction; Pain is decreased eo2 16:55 Drug: Lopressor (metoprolol) 5 mg Route: IVP; Site: right antecubital; eo2 17:55 Follow up: Response: No adverse reaction eo2 16:55 Drug: Lasix (furosemide) 40 mg Route: IVP; Site: right antecubital; eo2 17:55 Follow up: Response: No adverse reaction eo2 Outcome: 15:54 Decision to Hospitalize by Provider. sp3 21:33 Admitted to ER Hold. Please see [facility] for further documentation. kd3 21:33 Condition: stable kd3 21:33 Demonstrated understanding of instructions. 0308 21:59 Patient left the ED. ab2 Signatures: Dispatcher [employer] EDCA Karla Nieves ds1 Dania Hoover MD MD sp3 Julienne Hoffman RN RN kd3 Ally Chavira mb7 Dee Galindo RN RN eo2 Derek Pierre ab2 Corrections: (The following items were deleted from the chart) 10/12 13:01 13:00 Home Meds: Xarelto 20 mg Oral tab 1 tab once daily; ab2 ab2
[2021-10-12] MEDS ORDERED: HYDROMORPHONE HCL 1 MG/ML INJ ONE (16:03)
[2021-10-12] MEDS ORDERED: POTASSIUM CL SA 10 MEQ TAB PO ONE (16:04)
[2021-10-12] MEDS ORDERED: FUROSEMIDE 40 MG/4 ML VIAL ONE (16:04)
[2021-10-12] MEDS ORDERED: ONDANSETRON 4 MG/2 ML VIAL ONE (16:04)
[2021-10-12] MEDS ORDERED: ONDANSETRON 4 MG/2 ML VIAL IV PRN (17:32)
--- NOTE | 2021-10-12 19:01 | P.HP ---
Certification for Inpatient Patient admitted to: Inpatient With expected LOS: >2 Midnights Practitioner: I am a practitioner with admitting privileges, knowledge of patient current condition, hospital course, and medical plan of care. Services: Services provided to patient in accordance with Admission requirements found in Title 42 Section 412.3 of the Code of Federal Regulations Patient History Date of Service: 10/12/21 Reason for admission: A. fib with RVR, large left neck mass History of Present Illness: 50-year-old male, PMH: Chronic atrial fibrillation, systolic CHF (last EF: 20%), hypertension, left anterior cervical lymphadenopathy Presents to the ED due to increasing fatigue, palpitations, left neck pain. Patient was found to be in A. fib with RVR to the 130s. Patient also states 2 weeks ago left neck mass that was originally about a golf ball size significantly grew rapidly. Since then he has been having left neck pain, some slight difficulty swallowing solid foods, does okay with finely chewed foods and okay with liquids. Denies any recent weight loss. Also reports increasing shortness of breath/dyspnea. He states he initially had a small mass in the left anterior neck back in March. Ultrasound showed likely enlarged/involving his lymph node. At that point his PCP was working on getting him scheduled for CT scan. He states he was never able to get the CT scan from his PCP. CT neck was done: Large irregular mass involving the left neck, highly likely to be malignant. Mass encircles the left distal common carotid artery, proximal internal and external carotid arteries. Moderate mass-effect to the pharynx and larynx. Allergies No Known Allergies Allergy (Verified 10/05/17 05:15) Home Medications: carvediloL [Coreg*] 12.5 mg PO BID 6AM 6PM #60 tab 06/14/19 Furosemide [Lasix] 40 mg PO BID #60 tablet 09/08/19 lisinopriL [Prinivil*] 5 mg PO DAILY #30 tab 09/08/19 Sotalol HCl [Sotalol] 160 mg PO BID 30 Days #60 tablet 04/12/21 - Past Medical/Surgical History Diabetic: No -: HTN -: Atrial fibrillation -: Tobacco abuse -: CHF, systolic dysfunction -: HTN -: R. knee sx Psychosocial/ Personal History: Patient is single. - Family History Mother -: Cancer Notes: LNG CA - non smoker - Social History Smoking Status: Current every day smoker Alcohol use: No CD- Drugs: No Caffeine use: Yes Place of Residence: Home Review of Systems 10-point ROS is otherwise unremarkable Physical Examination - Physical Exam General: Alert, In no apparent distress, Oriented x3 HEENT: Sclerae nonicteric Neck: Other (Large left anterior cervical mass overlying carotid, tender to palpation) Respiratory: Clear to auscultation bilaterally, Normal air movement Cardiovascular: Edema (Bilateral lower extremity), Irregular heart rate/rhythm Gastrointestinal: Soft and benign, Non-distended, No tenderness Musculoskeletal: No erythema Integumentary: No rashes, No significant lesion Neurological: Normal speech, Normal affect - Studies Laboratory Data (last 24 hrs) 10/12/21 13:15: PT 12.3, INR 1.07 10/12/21 13:15: WBC 6.70, Hgb 16.7, Hct 48.1, Plt Count 256 10/12/21 13:15: Sodium 140, Potassium 3.0 L, BUN 17, Creatinine 1.15, Glucose 137 H, Magnesium 2.1, Total Bilirubin 0.7, AST 20, ALT 28, Alkaline Phosphatase 57 Assessment and Plan - Advance Directives Does patient have a Living Will: No Does patient have a Durable POA for Healthcare: No Physician Review Additional Text: Problem list A. fib with RVR Large left anterior cervical neck mass Acute on chronic systolic CHF (last EF: 20%) Hypertension Patient given IV Lopressor in ED, restart patient's sotalol Cardiology consulted CXR with pulmonary opacities bilaterally, consistent with a mild CHF exacerbation ENT consulted for large neck mass, concern for neck malignancy We will discuss further tomorrow for best plan for biopsy Patient states that he would like to know the option, but has "no plan to have a long/drawnout fight with it, if cancer" Patient is not on any chronic anticoagulation secondary to cost Changes confirm home medications Regular diet, patient states he is not having issues if he chooses food thoroughly. VTE: Lovenox Code: DNR Dispo: Pending improvement of A. fib, and this left neck mass Time Spent Managing Pts Care (In Minutes): 60
[2021-10-12] MEDS ORDERED: FUROSEMIDE 40 MG TABLET ONE (21:57)
[2021-10-12] MEDS ORDERED: ENOXAPARIN 40 MG/0.4 ML SQ ONE (21:57)
[2021-10-12] MEDS: ENOXAPARIN 40 MG/0.4 ML SQ SCH (22:07)
[2021-10-12] MEDS: FUROSEMIDE 40 MG TABLET PO SCH (23:48)
[2021-10-12] MEDS ORDERED: SOTALOL HCL 80 MG TAB PO ONE (23:50)
[2021-10-12] MEDS ORDERED: SOTALOL HCL 80 MG TAB ONE (23:59)
[2021-10-13] MEDS: METOPROLOL TARTRATE 5 MG/5 ML INJ IV PRN ×2 (01:13→04:43)
[2021-10-13] MEDS ORDERED: METOPROLOL TARTRATE 5 MG/5 ML INJ IV ONE ×2 (01:13→04:38)
[2021-10-13] MEDS: MORPHINE 4 MG/ML SYR IV PRN ×2 (01:32→10:52)
[2021-10-13] MEDS ORDERED: MORPHINE 4 MG/ML SYR ONE ×2 (01:34→10:55)
[2021-10-13 03:30] LABS: Absolute Lymphocytes (CBC) 2.5 K/uL (0.7-4.9); Hematocrit 48.6 % (39.6-49.0); Lymphocytes % 23.6 % (15.3-44.8); MPV 8.2 fL (7.6-11.3); RBC Red Blood Cell Count 4.71 M/uL (4.33-5.43)
[2021-10-13 03:57] LABS: Albumin 3.7 g/dL (3.4-5.0); Bilirubin Total 0.9 mg/dL (0.2-1.0); Magnesium 2.3 mg/dL (1.8-2.4); Potassium 4.1 mmol/L (3.5-5.1); Protein, Total 7.6 g/dL (6.4-8.2); Thyroid Stimulating Hormone 3.31 uIU/mL (0.360-3.740)
[2021-10-13] MEDS ORDERED: carvediloL 12.5 MG TAB PO SCH (06:00)
[2021-10-13] MEDS ORDERED: carvediloL 6.25 MG TAB ONE ×2 (06:28→06:34)
[2021-10-13] MEDS ORDERED: FUROSEMIDE 40 MG TABLET ONE (08:14)
[2021-10-13] MEDS ORDERED: ENOXAPARIN 40 MG/0.4 ML SQ ONE (08:14)
[2021-10-13] MEDS: FUROSEMIDE 40 MG TABLET PO SCH ×2 (08:15→16:20)
[2021-10-13] MEDS: ENOXAPARIN 40 MG/0.4 ML SQ SCH (08:16)
[2021-10-13] MEDS ORDERED: NA CHLORIDE 0.9% 500 ML IV ONE ×2 (11:30→11:56)
[2021-10-13] MEDS ORDERED: HYDROCORTISONE SUC 100 MG INJ IV ONE (11:56)
[2021-10-13] MEDS ORDERED: DIPHENHYDRAMINE 50 MG/ML VIAL IV ONE (11:56)
[2021-10-13] MEDS ORDERED: FAMOTIDINE 20 MG/2 ML VIAL IV ONE (11:57)
[2021-10-13] MEDS ORDERED: NA CHLORIDE 0.9% 500 ML ONE ×2 (12:01→12:20)
[2021-10-13] MEDS ORDERED: DIPHENHYDRAMINE 12.5MG/5ML LIQ ONE (12:01)
[2021-10-13] MEDS ORDERED: ONDANSETRON 4 MG/2 ML VIAL ONE (12:01)
[2021-10-13] MEDS ORDERED: HYDROCORTISONE SUC 100 MG INJ ONE (12:04)
[2021-10-13] MEDS ORDERED: DIPHENHYDRAMINE 50 MG/ML VIAL ONE (12:04)
[2021-10-13] MEDS ORDERED: NALOXONE 0.4 MG/ML VIAL IV ONE (12:05)
[2021-10-13] MEDS ORDERED: EPINEPHrine 1 MG/10 ML SYR ONE (12:16)
[2021-10-13] MEDS ORDERED: ATROPINE SULF 1 MG/10 ML SYR IV ONE (12:17)
--- NOTE | 2021-10-13 12:52 | EKG ---
Test Date: 2021-10-12 Test Time: 13:11:39 Mid Level Project Manager: MBB MEASUREMENT RESULTS: Intervals: Rate: 162 [place]: QRSD: 86 QT: 274 QTc: 449 [place]: P: [place]: QRS: 85 T: 9 INTERPRETIVE STATEMENTS: Atrial fibrillation with rapid ventricular response with premature ventricular or aberrantly conducted complexes Abnormal ECG Compared to ECG 04/11/2021 10:10:37 Ventricular premature complex(es) now present Electronically Signed On 10-13-21 12:49:41 MEDICAL RECORD ASSISTANT by Malik Josue
[2021-10-13] MEDS ORDERED: EPINEPHrine 4 MG in NA CHLORIDE 0.9% 250 ML IV SCH (13:00)
[2021-10-13] MEDS ORDERED: NOREPINEPHRINE 4 MG in D5W 250 ML IV SCH (13:00)
--- NOTE | 2021-10-13 13:20 | P.CNS ---
Date of Consult: 10/13/21 I was called yesterday evening regarding consultation for neck mass and expressed plan to evaluate the patient in the morning since he was pending admission for cardiac issues. It was relayed to me that the patient had a neck mass since around April 2021 which suddenly increased in size over the last few weeks. He had an US of the neck in the Fall but it was not clear to me where the study was done and results are not available in the EMR at this time. The patient is know to be a smoker. He has a history of poor cardiac function per the EMR and was admitted with AF with RVR. His lack of insurance and financial resources has prevented him from seeking and obtaining medical care for his chronic medical conditions. The patient had a CT neck performed in the ER with concern for a large mass of the left neck of more than 6cm which completely surrounded the carotid. I reviewed the patient's chart this morning including review of prior records, recent labs and personal review of the CT images. The CT is poorly contrasted by there is a large irregular mass encompassing the left carotid artery and causing rotation of the larynx. In addition, I am suspicious of a left oropharyngeal/lateral pharyngeal wall/possible base of tongue mass, which would be a likely primary site for cervical lymph node metastasis. The patient's CBC shows a high MVC, which can be caused by chronic alcohol use, which is an additional risk factor in the development of head/neck cancers. When I arrived in the ER around noon on October 13, that patient had immediately recently experienced an acute change in his condition. The hospitalist informed me that he had acute bradycardia, hypotension and was place on external pacing. The patient appeared pale and acutely ill. Full physical exam was deferred in light of his current conditions. 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 His expected survival even with aggressive radiation and chemotherapy is estimated to be less than 30% at 3 years. Biopsy can be performed but I would defer at this time until his medical/cardiac issues are stabilized. I will monitor the patient's condition and plan to return to the bedside to discuss my concerns and education the patient so that he can participate in shared decision making regarding biopsy and treatment planning. Based on information from the primary team, he has expressed low desire to engage in cancer treatment even if confirmed. There may be consideration for hospice care in light of his cardiac and likely cancer diagnosis.
[2021-10-13 13:28] LABS: Potassium 3.6 mmol/L (3.5-5.1)
--- NOTE | 2021-10-13 17:24 | P.PN ---
Subjective Date of Service: 10/13/21 Chief Complaint: A. fib with RVR, large left neck mass Patient developed severe bradycardia, hypotension, diaphoresis and blacked out momentarily. Symptoms preceded by a dose of IV morphine 4 mg. Patient given a dose of IV Narcan, 1 L mils of normal saline bolus, put on transcutaneous pacer for unstable bradycardia. Labs drawn showing mildly elevated lactic acid, negative troponin. Patient transferred to the ICU on transcutaneous pacer and started on epinephrine drip. He responded to treatment with improvement in his blood pressure and heart rate. Physical Examination - Vital Signs Temperature: 97.7 F Blood Pressure: 113/90 Pulse: 85 Respirations: 17 Pulse Ox (%): 97 - Physical Exam General: Alert, Oriented x3, Mild distress HEENT: Normocephalic, PERRLA, Mucous membr. moist/pink, Sclerae nonicteric Neck: Supple, JVD not distended, Other (Left anterior neck mass) Respiratory: Clear to auscultation bilaterally, Normal air movement Cardiovascular: No edema, Normal S1 S2 (Bradycardia), Irregular heart rate/rhythm Capillary refill: <2 Seconds Gastrointestinal: Soft and benign, Non-distended, No tenderness Musculoskeletal: No swelling Integumentary: No rashes, No cyanosis Neurological: Normal speech, Normal strength at 5/5 x4 extr, Cranial nerves 3-12 intact Assessment And Plan - Plan Problem list A. fib with RVR Large left anterior cervical neck mass Acute on chronic systolic CHF (last EF: 20%) Hypertension. Opioid induced bradycardia Plan Continue supportive measures with IV fluid. Patient heart rate and blood pressure have improved. Epinephrine drip weaned off. DC transcutaneous pacemaker. Cardiology is following. Hold sotalol for today.\ Metoprolol IV as needed for RVR if his blood pressure will tolerate. ENT seen patient for neck mass. ENT examination postponed due to patient's acute condition. May need biopsy from the tonsil by ENT or CT-guided transcutaneous biopsy. Patient not on anticoagulation for afib. Diet as tolerated. Continue monitoring in ICU care today. Echocardiogram ordered. Monitor electrolytes. ENT to follow. VTE: Lovenox Code: Patient wishes to be full code. He signed an out of hospital DNR form. Critical care time spent managing patient's unstable bradycardia was about 42 minutes.
[2021-10-13 20:48] VITALS: BMI 39.8
[2021-10-13] MEDS: KETOROLAC 30 MG/ML INJ IV PRN (22:55)
[2021-10-14 05:32] LABS: Absolute Lymphocytes (CBC) 2.6 K/uL (0.7-4.9); Hematocrit 43.8 % (39.6-49.0); Lymphocytes % 30.9 % (15.3-44.8); MPV 7.9 fL (7.6-11.3); RBC Red Blood Cell Count 4.23 M/uL (4.33-5.43)
[2021-10-14 05:39] LABS: Potassium 3.8 mmol/L (3.5-5.1)
[2021-10-14] MEDS ORDERED: POTASSIUM CL SA 10 MEQ TAB PO ONE (09:00)
[2021-10-14] MEDS: ENOXAPARIN 40 MG/0.4 ML SQ SCH (09:24)
[2021-10-14] MEDS: FUROSEMIDE 40 MG TABLET PO SCH ×2 (09:24→16:27)
[2021-10-14] MEDS ORDERED: SOTALOL HCL 80 MG TAB PO SCH (10:26)
--- NOTE | 2021-10-14 11:05 | CON ---
Date of Consultation: 10/13/2021 Reason For Consultation: Atrial fibrillation. History Of Present Illness: Mr. Abel is a 50-year-old. He is rather unfortunate. He has a histor y of congestive heart failure, hypertension, chronic atrial fibrillation. He takes sotalol 160 b.i.d . He is also on Coreg. He is on lisinopril for hypertension, Lasix for congestive heart failure. 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 It is a large mass encro aching on the carotid and the larynx. Dr. Luna Bowen has seen him. Apparently, the patient h as refused therapy for his probable cancer and hospice is being seeked. Past Medical History: As stated above. Allergies: NEGATIVE. Medications: At home were listed earlier. Social History: Positive for tobacco and alcohol. Family History: Negative. Physical Examination: Vital Signs: Initially, his atrial fibrillation was 97. Apparently overnight after his sotalol ther apy, he became bradycardiac, which was most likely a vagal reaction from the neck mass. He had hypot ension as well. HEENT: Positive for large lymph nodes. Chest: Clear. Cardiac: Revealed AFib. Abdomen: Obese. Extremities: Revealed 1+ edema. Diagnostic Data: As stated earlier. Impression And Plan: Chronic atrial fibrillation, now bradycardic. We should hold the sotalol. We should hold the Coreg. He is also hypotensive. Hospice care has been considered. Dr. Bowen is fo llowing him for the neck mass of concern. I have not much to add at this point. We will treat atria l fibrillation with IV digoxin on an as-needed basis if his heart rate goes fast. NB/MODL Voice ID: [id number] Report ID: [id number]
--- NOTE | 2021-10-14 12:56 | EKG ---
Test Date: 2021-10-13 Test Time: 11:55:48 Power System Engineer: GAYE MEASUREMENT RESULTS: Intervals: Rate: 45 WI: QRSD: 84 QT: 508 QTc: 439 [place]: P: WI: QRS: 84 T: 140 INTERPRETIVE STATEMENTS: Atrial fibrillation with slow ventricular response T wave abnormality, consider anterolateral ischemia or digitalis effect Abnormal ECG Compared to ECG 10/12/2021 13:11:39 T-wave abnormality now present Possible ischemia now present Ventricular premature complex(es) no longer present Electronically Signed On 10-14-21 12:52:17 INSECT CONTROL AIDE by Malik Josue
--- NOTE | 2021-10-14 13:27 | P.PN ---
Subjective Date of Service: 10/14/21 Chief Complaint: A. fib with RVR, large left neck mass Patient states he is feeling better today but continues to cough intermittently. He states the Toradol is effective for his throat pain. He was in rapid atrial fibrillation this morning. Physical Examination - Vital Signs Temperature: 96.6 F Blood Pressure: 132/90 Pulse: 82 Respirations: 16 Pulse Ox (%): 93 - Physical Exam General: Alert, In no apparent distress, Oriented x3 HEENT: Mucous membr. moist/pink Neck: JVD not distended Respiratory: Clear to auscultation bilaterally, Normal air movement Cardiovascular: No edema, Normal S1 S2, Irregular heart rate/rhythm Gastrointestinal: Normal bowel sounds, Soft and benign, Non-distended, No tenderness Musculoskeletal: No swelling, No tenderness Integumentary: No rashes, No erythema Neurological: Normal strength at 5/5 x4 extr Assessment And Plan - Plan Problem list A. fib with RVR Large left anterior cervical neck mass Acute on chronic systolic CHF (last EF: 20%) Hypotension. Opioid induced bradycardia Plan Bradycardia resolved, hypotension resolved. Patient currently in rapid atrial fibrillation. Status post epinephrine, status post transcutaneous pacing. Patient was also given Narcan for opioid induced bradycardia. Cardiology is following. Give half his home dose of sotalol for A. fib with RVR this morning. Dr. Josue recommend IV digoxin for heart rate control for now. ENT seen patient for neck mass. Vitals are stable for ENT examination today May need biopsy from the tonsil by ENT or CT-guided transcutaneous biopsy. Patient not on anticoagulation for afib. Diet as tolerated. Echocardiogram result is pending. Monitor electrolytes. VTE: Lovenox Code: Patient wishes to be full code. He signed an out of hospital DNR form.
--- NOTE | 2021-10-14 13:49 | ECHO ---
HEIGHT: 6 ft 2 in WEIGHT: 323 lb 6.4 oz DATE OF STUDY: 10/14/[address]: navdeep valladares 2-DIMENSIONAL: YES M.MODE: YES DOPPLER: YES COLOR FLOW: YES TDS: NO PORTABLE: NO DEFINITY: NO BUBBLE STUDY: NO DIAGNOSIS: SEVERE BRADYCARDIA CARDIAC HISTORY: CATHERIZATION: NO SURGERY: NO PROSTHETIC VALVE: NO PACEMAKER: NO MEASUREMENTS (cm) DIASTOLIC (NORMALS) SYSTOLIC (NORMALS) IVSd 1.2 (0.6-1.2) LA Diam 4.2 (1.9-4.0) LVEF 18% LVIDd 5.2 (3.5-5.7) LVIDs 4.8 (2.0-3.5) %FS 8% LVPWd 1.3 (0.6-1.2) Ao Diam 3.1 (2.0-3.7) 2 DIMENSIONAL ASSESSMENT: RIGHT ATRIUM: NORMAL LEFT ATRIUM: DILATED RIGHT VENTRICLE: NORMAL LEFT VENTRICLE: LEFT VENTRICULAR HYPERTROPHY TRICUSPID VALVE: NORMAL MITRAL VALVE: NORMAL PULMONIC VALVE: NORMAL AORTIC VALVE: NORMAL PERICARDIAL EFFUSION: NONE AORTIC ROOT: NORMAL LEFT VENTRICULAR WALL MOTION: SEVERE GLOBAL HYPOKINESIS. DOPPLER/COLOR FLOW: NORMAL. COMMENTS: SEVERE GLOBAL HYPOKINESIS. NO THROMBUS. NO EFFUSION. TECHNOLOGIST: APARNA ECKERT
[2021-10-14 14:29] LABS: Magnesium 2.4 mg/dL (1.8-2.4); Phosphorus 3.4 mg/dL (2.5-4.9)
[2021-10-14] MEDS: SOTALOL HCL 80 MG TAB PO SCH (18:24)
[2021-10-14] MEDS: dexAMETHasone 10 MG/ML VIAL IV SCH (18:24)
[2021-10-15] MEDS: KETOROLAC 30 MG/ML INJ IV PRN ×3 (03:25→18:47)
[2021-10-15 04:15] LABS: Absolute Lymphocytes (CBC) 1.3 K/uL (0.7-4.9); Hematocrit 47.3 % (39.6-49.0); Lymphocytes % 14.2 % (15.3-44.8); MPV 8.2 fL (7.6-11.3); RBC Red Blood Cell Count 4.57 M/uL (4.33-5.43)
[2021-10-15 04:23] LABS: Magnesium 2.3 mg/dL (1.8-2.4); Potassium 4.2 mmol/L (3.5-5.1)
[2021-10-15] MEDS: SOTALOL HCL 80 MG TAB PO SCH ×2 (05:24→16:29)
[2021-10-15] MEDS: ENOXAPARIN 40 MG/0.4 ML SQ SCH (09:23)
[2021-10-15] MEDS: dexAMETHasone 10 MG/ML VIAL IV SCH ×2 (09:24→20:52)
[2021-10-15] MEDS: FUROSEMIDE 40 MG TABLET PO SCH ×2 (09:24→16:29)
--- NOTE | 2021-10-15 12:43 | P.PN ---
Subjective Date of Service: 10/15/21 Chief Complaint: A. fib with RVR, large left neck mass Patient reports progressive improvement in symptoms. He reports good pain control with Toradol. Patient started on steroid. Heart rate is better controlled today. No issues overnight. Physical Examination - Vital Signs Temperature: 97.1 F Blood Pressure: 131/82 Pulse: 58 Respirations: 20 Pulse Ox (%): 94 - Physical Exam General: Alert, In no apparent distress, Oriented x3, Obese HEENT: Mucous membr. moist/pink Neck: Supple, JVD not distended Respiratory: Clear to auscultation bilaterally, Normal air movement Cardiovascular: No edema, Normal S1 S2, Irregular heart rate/rhythm Gastrointestinal: Soft and benign, Non-distended, No tenderness Musculoskeletal: No swelling, No tenderness Integumentary: No rashes Neurological: Normal strength at 5/5 x4 extr Assessment And Plan - Plan Problem list A. fib with RVR Large left anterior cervical neck mass Acute on chronic systolic CHF (last EF: 20%) Hypotension. Opioid induced bradycardia Plan Bradycardia resolved, hypotension resolved. Heart rate fluctuates but generally rate controlled better than yesterday Status post epinephrine, status post transcutaneous pacing. Status post Narcan for opioid induced bradycardia. Cardiology is following. Continue sotalol but at a half a dose Dr. Josue recommend IV digoxin for heart rate control for now. ENT saw patient for neck mass. At that time he was unstable from bradycardia. Bradycardia and hypotension have resolved. ENT to see patient and examined him for options regarding biopsy.. Patient ejection fraction is 18%. Mass looks malignant. Poor prognosis. Patient is open to hospice. He would also like to pursue tissue diagnosis if the process would not be complex. Patient not on anticoagulation for afib. Diet as tolerated. Monitor electrolytes. VTE: Lovenox Code: Patient wishes to be full code. He signed an out of hospital DNR form.
--- NOTE | 2021-10-15 14:41 | P.PN ---
Date of Service: 10/15/21 I met with the patient and his son, in person, to perform an exam and discuss my impressions. HPI: The patient reports that he noted a mass in the left side of the neck that was approximately the size of a golf ball around April 2021. He was seen at a health clinic in [place]. They ordered an ultrasound which was performed in [place]. Due to pandemic restrictions, his follow-up visit was performed by telehealth. At that time the patient reports they were mainly discussing his cough and did not seem to be overly concerned about the results of the ultrasound. There was some discussion about performing a CT scan but it is uncertain why this was never performed, whether it was due to an access or financial issue or that the patient perceived it was not an urgent matter. The patient then developed worsening and acute issues in regards to his heart and spent his time and energy in regards to his health concentrating on his cardiac issues. He reports that he in the past approximately 3 to 4 years ago had acute worsening of his heart and lung issues and had acute shortness of breath with severe amounts of fluid around the heart and or filling the lungs and has previously experienced air hunger and similar types of symptoms. In regards to the neck mass he had pain at one point but then the mass seemed to pop out and the pain around the mass was less severe and so he was not as concerned about it. Over the last month, the left neck mass became dramatically larger and he began to have some pain shooting up into the left side of the face and left ear. He denied pain with swallowing or changes in his swallowing. He denied any difficulty breathing. He has noted some change of his voice over a similar period of 2 to 4 weeks. His voice will come and go and he has better sustained phonation when using a whispered voice. Past medical history: Significant cardiac disease with very poor ejection fraction, chronic atrial fibrillation with out anticoagulation. Multiple episodes of rapid ventricular response. Social history: Tobacco use for greater than 30 years, denies significant alcohol use. Family history: The patient's mother was treated for lung cancer including radiation and chemotherapy. His witnessing in support of his mother during her treatment is cited as a significant factor in his feelings regarding treatment for what is very likely head neck cancer. Physical exam: Temp Pulse Resp BP Pulse Ox 97.1 F 58 20 131/82 94 10/15/21 12:43 10/15/21 12:43 10/15/21 12:43 10/15/21 12:43 10/15/21 12:43 The patient is no acute distress. He is alert and oriented. His face is normocephalic and atraumatic. His pupils are equal round reactive and his extraocular movements are intact. External ears are unremarkable, otoscopic exam is not performed today. His external nose is unremarkable. His oral cavity is unremarkable. The patient has no trismus, his teeth are in fair condition. The buccal mucosa, gingiva, floor of mouth, oral tongue, base of tongue, tonsillar fossa, hard and soft palate and uvula are all within normal limits. With palpation of the posterior tongue there is no indurated mass or tumor. Examination of his larynx is not feasible due to lack of laryngeal mirror or flexible scope. The patient defers laryngeal exam even if proper equ ipment was available. Visual inspection of the neck is obscured by his prominent cox. With palpation there is a large, hard and indurated, mildly tender mass extending from the left jawline to the clavicle which seems to encompass the sternocleidomastoid muscle and extend to the anterior border of the laryngeal cartilages. There is no subjective fluctuance. The mass is minimally mobile. There is no overlying redness or other skin changes. The patient's ability to communicate is limited by voice performance. His normal speaking voice has periods of aphonia where his voice cuts out, with a raspy and hoarse quality. The patient uses an intentional whisper voice in order to achieve more fluent speech. Review of data: CT scan as previously described. Assessment and plan of action: Based on my physical exam, I suspect the patient has a left sided supraglottic tumor though the exact location is not discernible without visual inspection of the larynx which is deferred by the patient at this time. We discussed that based on his history, physical exam, and radiographic findings I am highly confident that he has an advanced head neck cancer. The vast majority of these involve a squamous cell carcinoma pathology. Based on the radiographic data, he has a stage IVb, Tx N3 Mx tumor. We discussed work-up would typically include additional physical exam including a laryngoscopy, biopsy to confirm pathology, additional staging to determine the presence of distant metastasis. Based on the available information, treatment would involve both radiation and concurrent chemotherapy, and given the advanced stage of the neck, post treatment surgery may be indicated if there is insufficient response. At this point in time primary surgery would be contraindicated as it would lik pedro require ligation of the left carotid artery. In light of the patient's significant cardiac history with very low ejection fraction, he is poorly motivated to consider surgical or nonsurgical treatment of his cancer. We discussed that if left untreated, he will likely progressively have worsening voice, swallowing and eventually breathing function. If he elects to defer treatment, he would be an appropriate candidate for hospice and symptomatic management. He cites watching his mom go through treatment for lung cancer as an additional reason why he would defer chemo and radiation. In light of his unwillingness to consider definitive and/or palliative radiation or chemo at this time, the role for a biopsy is questionable. If the results of the biopsy would not change his decision to undergo therapy or otherwise impact the course of his medical treatment, I do not see a strong reason to pursue tissue diagnosis. If the patient changes his mind or for any reason desires to have a definitive diagnosis, I am happy to perform a fine-needle aspiration of the neck mass. A core biopsy would also be acceptable. I am happy to assist with the biopsy while the patient is in-house, or I can see him as an outpatient in my clinic. I spoke with Carmenza Simmons regarding the patient's findings, desires, and to obtain clarification regarding the social status/Social Security/disability for the patient. She is welcome to reach out to me as needed. I spoke with the primary team in regards to my conversation with the patient. They agree with deferring biopsy based on the available information.
[2021-10-16 05:20] VITALS: O2SAT 100
[2021-10-16] MEDS: SOTALOL HCL 80 MG TAB PO SCH (06:49)
[2021-10-16] MEDS: ENOXAPARIN 40 MG/0.4 ML SQ SCH (08:05)
[2021-10-16] MEDS: dexAMETHasone 10 MG/ML VIAL IV SCH (08:06)
[2021-10-16] MEDS: FUROSEMIDE 40 MG TABLET PO SCH (08:06)
[2021-10-16] MEDS: KETOROLAC 30 MG/ML INJ IV PRN (08:08)
--- NOTE | 2021-10-16 11:16 | P.DS ---
Admission Date: 10/12/21 Discharge Date: 10/16/21 Disposition: HOSPICE-HOME Discharge Condition: FAIR Reason for Admission: A. fib with RVR, large left neck mass Brief History of Present Illness: 50-year-old male, PMH: Chronic atrial fibrillation, systolic CHF (last EF: 20%), hypertension, left anterior cervical lymphadenopathy Presents to the ED due to increasing fatigue, palpitations, left neck pain. Patient was found to be in A. fib with RVR to the 130s. Patient also reported a left neck mass which has been present for 6 months but rapidly grew over the last 2 weeks leading to pain and difficulty swallowing solid foods. He denied any recent weight loss. Also reported increasing shortness of breath/dyspnea. He states he initially had a small mass in the left anterior neck back in March. CT neck was done: Large irregular mass involving the left neck, highly likely to be malignant. Mass encircles the left distal common carotid artery, proximal internal and external carotid arteries. Moderate mass-effect to the p harynx and larynx. Patient in A. fib with RVR. He was admitted for further management. Hospital Course: Diagnosis A. fib with RVR Large left anterior cervical neck mass Acute on chronic systolic CHF (last EF: 20%) Hypotension. Opioid induced bradycardia Patient admitted to the medical floor and started on supportive measures with IV opioids for pain, ENT consulted. Patient developed severe bradycardia with hypotension after the second dose of IV morphine. He required transcutaneous pacer and a brief epinephrine drip. He was also given Narcan to reverse the morphine effect, Bradycardia resolved, hypotension resolved. Heart rate fluctuatesd but generally rate controlled on sotalol 80 mg twice daily. Noted patient is on sotalol 160 mg daily at home. Status post epinephrine, status post transcutaneous pacing. Status post Narcan for opioid induced bradycardia. Cardiology followed patient. Echocardiogram demonstrated EF of 18%. ENT Dr. Bowen saw patient for neck mass and recommended percutaneous FNA if patient wants to pursue diagnosis and treatment. Patient ejection fraction is 18%. Mass looks malignant. Poor prognosis. Patient has made a decision not to pursue diagnosis and treatment and opted for hospice. His pain was controlled with IV Toradol and IV dexamethasone. Opioid was avoided due to the severe bradycardia. Patient is therefore discharged to home with hospice. He is also prescribed ibuprofen and dexamethasone for symptomatic. Vital Signs/Physical Exam: Temp Pulse Resp BP Pulse Ox 97.9 F 89 18 125/88 97 10/16/21 07:39 10/16/21 08:06 10/16/21 07:39 10/16/21 08:06 10/16/21 07:39 General: Alert, In no apparent distress, Oriented x3 HEENT: Mucous membr. moist/pink Neck: Supple, JVD not distended Respiratory: Clear to auscultation bilaterally, Normal air movement Cardiovascular: Normal S1 S2, Edema (Bilateral legs), Irregular heart rate/rhythm Gastrointestinal: Soft and benign, Non-distended Musculoskeletal: No tenderness Integumentary: No rashes Neurological: Normal strength at 5/5 x4 extr, Cranial nerves 3-12 intact, Abnormal speech (Hoarse voice) Laboratory Data at Discharge: WBC 9.00 K/uL (4.3-10.9) 10/15/21 03:34 Hgb 16.5 g/dL (13.6-17.9) 10/15/21 03:34 Hct 47.3 % (39.6-49.0) 10/15/21 03:34 Plt Count 232 K/uL (152-406) 10/15/21 03:34 PT 12.3 SECONDS (9.5-12.5) 10/12/21 13:15 INR 1.07 10/12/21 13:15 Sodium 137 mmol/L (136-145) 10/15/21 03:34 Potassium 4.2 mmol/L (3.5-5.1) 10/15/21 03:34 BUN 24 mg/dL (7-18) H 10/15/21 03:34 Creatinine 1.16 mg/dL (0.55-1.3) 10/15/21 03:34 Glucose 162 mg/dL (74-106) H 10/15/21 03:34 Phosphorus 3.4 mg/dL (2.5-4.9) 10/14/21 14:01 Magnesium 2.3 mg/dL (1.8-2.4) 10/15/21 03:34 Total Bilirubin 0.9 mg/dL (0.2-1.0) 10/13/21 02:52 AST 24 U/L (15-37) 10/13/21 02:52 ALT 29 U/L (12-78) 10/13/21 02:52 Alkaline Phosphatase 49 U/L (45-117) 10/13/21 02:52 Home Medications: Furosemide [Lasix] 40 mg PO BID #60 tablet 09/08/19 Ibuprofen 400 mg PO TID PRN #90 tablet 10/16/21 Sotalol HCl [Betapace*] 80 mg PO BID 6AM 6PM #60 tab 10/16/21 dexAMETHasone [Dexamethasone] 4 mg PO DAILY #10 tablet 10/16/21 New Medications: Sotalol HCl [Betapace*] 80 mg PO BID 6AM 6PM #60 tab dexAMETHasone [Dexamethasone] 4 mg PO DAILY #10 tablet Ibuprofen 400 mg PO TID PRN #90 tablet PRN Reason: PAIN Diet: AHA Activity: Ad mohit Followup: NONE,NONE [Primary Care Provider] - Time spent managing pt's care (in minutes): 41
[2021-10-16 12:04] VITALS: BP 147/62; TEMP 97.4
== END 2021-10-16 14:00 | disposition hospice, home (50) | DRG 308 ==
LOC: ER 12:52 → ERHOLD 17:32 → 2ND 10-13 11:36 → ERHOLD 10-13 12:34 → 2ND 10-13 21:49
PROVIDERS: ADMIT Hospitalist; ATTEND Hospitalist
DX: I48.20 Chronic atrial fibrillation, unspecified (principal); I50.23 Acute on chronic systolic (congestive) heart failure; C76.0 Malignant neoplasm of head, face and neck; I11.0 Hypertensive heart disease with heart failure; I95.2 Hypotension due to drugs; T40.2X5A Adverse effect of other opioids, initial encounter; Y92.239 Unspecified place in hospital as the place of occurrence of the external cause; R00.1 Bradycardia, unspecified; F17.210 Nicotine dependence, cigarettes, uncomplicated; Z20.822 Contact with and (suspected) exposure to COVID-19
CPT/HCPCS: 36415; 70491; 71045; 80048; 80053; 80076; 83605; 83735; 83880; 84100; 84439; 84443; 84484; 85025; 85610; 93005; 93306; 94760; 96374; 96375; 99285; J0171; J1100; J1170; J1200; J1650; J1720; J1940; J2405; J7040; J7050; Q0163; Q9967; U0003